=== PATIENT | female | born 1940 | race Caucasian/White ===

== ENCOUNTER 2018-06-02 16:07 | Outpatient (CLI) | payer MEDICARE, OTHER, SELFPAY ==
--- NOTE | 2018-06-02 13:05 | DI.RAD_ITS ---
SYMPTOMS/DIAGNOSIS: RIGHT HIP PAIN, M25.551 RIGHT HIP AND PELVIS: Three views were obtained. There is marked narrowing of the cartilaginous joint space of the right hip. There are prominent osteophytes of the acetabulum and femoral head. Mild subchondral sclerosis noted of the adjacent bones. 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 Moderate to severe degenerative changes of the left hip noted as well.
== END 2018-06-02 16:27 ==
PROVIDERS: PCP Family Medicine; Visit Provider Family Medicine
DX: M25.551 Pain in right hip (principal); M16.0 Bilateral primary osteoarthritis of hip
CPT/HCPCS: 73502

== ENCOUNTER 2019-01-26 06:50 | Emergency (ER) | payer MEDICARE, OTHER, SELFPAY ==
[2019-01-26 06:53] VITALS: BP 163/84; PULSE 58; RESP 22; TEMP 36.5; O2SAT 99
--- NOTE | 2019-01-26 06:59 | ED.GENADUL_ITS ---
Discharge Plan Disposition Patient Disposition: [facility] Condition: Serious Discharge Details Chief Complaint: Abd Prob Clinical Impression: Bowel obstruction, Intra-abdominal tumor Primary Care Provider: Dallin Welch ED Provider: Kyle Peñaloza Home Meds and New Rx's Prescriptions: No Action valacyclovir 1 gram tablet 1,000 mg PO BID RF: 0 clonazepam 0.5 mg tablet 0.5 mg PO hs prn Qty: 15 RF: 0 paroxetine HCl 20 mg tablet 10 mg PO DAILY Qty: 45 RF: 4 tramadol 50 mg tablet 50 mg PO Q8H PRN Qty: 15 RF: 0 acetaminophen [Tylenol Arthritis Pain] 650 MG tablet extended release 1,300 mg PO BID PRN RF: 0 cholecalciferol (vitamin D3) 1,000 UNIT tablet 1,000 unit PO DAILY RF: 0 calcium carb-mag oxide-zinc ox 1 EACH tablet 1 ea PO BID RF: 0 CPAP RF: 0 cod liver oil (bulk) 1 ML oil 1 tsp PO DAILY RF: 0 Discharge Data Discharge Date/Time-TO BE ENTERED AT DEPARTURE: 01/26/19 11:17 Medical Decision Making <Luis Erickson MD - Last Filed: 01/29/19 23:04> Patient presenting with abdominal pain and distention that she states is consistent with her previous bowel obstruction. She has had no bowel surgeries in the past. Will place IV and give Zofran and morphine. Make NPO and start fluids. Laboratory studies ordered. CT scan of the abdomen pelvis ordered. <Kyle Peñaloza MD - Last Filed: 01/27/19 08:47> 8:00 --care signed out by Dr. Erickson, please see his documentation regarding initial ED presentation and course. Briefly this is a 78-year-old female was noted to have persistent and worsening pain with associated nausea over the past [address] Erickson's concern for small bowel obstruction and CT is pending at time of signout. Labs are noted to be normal at time of signout. 10:00 --patient was reassessed remained stable. Will continue IVF. NPO. No active vomiting to warrant NG at this time. 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 Question uterine/cervical enlargement and thickened endometrial stripe. Pelvic ultrasound suggested for correlation. I called and spoke with Dr. Gamboa, on-call general surgery, she recommends transfer to [facility] for oncologic involvement. I called [facility] and requested transfer. I spoke with Dr. Chavis and discussed ED presentation and course. Dr. Chavis will accept the patient to the emergency department. Results were discussed with the patient. Plan discussed with patient and patient agrees to transfer. Of note, patient does state that she was noted to have a intra-abdominal mass years ago for which she followed up and biopsy and surgical intervention were not recommended. This apparently was followed at [facility] and follow-up with hospital in [place]. HPI <Luis Erickson MD - Last Filed: 01/29/19 23:04> General Mode of arrival: ambulatory . Date/Time Provider Initiated Documentation: 01/26/19 06:56 . Limitations to Documentation: no limitations . Information obtained by: patient and RN notes reviewed . HPI Narrative: Patient presents to ED with increasing abdominal pain and distention since yesterday. Some nausea but no vomiting. No flatus since last night. Pain is generalized and sharp in nature. Denies fevers or chills. Denies chest pain or shortness of breath. No real back pain. Previous history of SBO that cleared on its own. No previous abdominal surgeries. Related Data Home Medications Medication Instructions Recorded Confirmed acetaminophen [Tylenol Arthritis 1,300 mg PO BID PRN tab-cap 02/27/13 01/26/19 Pain] calcium carb-mag oxide-zinc ox 1 ea PO BID 02/27/13 01/26/19 cholecalciferol (vitamin D3) 1,000 unit PO DAILY 02/27/13 01/26/19 Cpap 03/19/14 12/22/18 cod liver oil (bulk) 1 tsp PO DAILY 05/07/14 01/26/19 paroxetine HCl 20 mg tablet 10 mg PO DAILY #45 tab-cap 06/02/18 01/26/19 tramadol 50 mg tablet 50 mg PO Q8H PRN #15 tab 06/02/18 01/26/19 clonazepam 0.5 mg tablet 0.5 mg PO hs prn #15 tab-cap 11/14/18 01/26/19 valacyclovir 1 gram tablet 1,000 mg PO BID tab-cap 11/14/18 01/26/19 Previous Rx's Medication Instructions Recorded paroxetine HCl 20 mg tablet 10 mg PO DAILY #45 tab-cap 06/02/18 tramadol 50 mg tablet 50 mg PO Q8H PRN #15 tab 06/02/18 clonazepam 0.5 mg tablet 0.5 mg PO hs prn #15 tab-cap 11/14/18 Allergies Allergy/AdvReac Type Severity Reaction Status Date / Time citalopram AdvReac Severe ANXIETY Unverified 01/26/19 06:56 ATTACKS venlafaxine AdvReac Unknown Unverified 01/26/19 06:56 General Stated Complaint: Abd Prob HANNAH: 3 Review of Systems <Luis Erickson MD - Last Filed: 01/29/19 23:04> Review of Systems Narrative: 02/05 Review of Systems completed and is negative except as stated above in HPI (Systems reviewed: Const, Eyes, ENT, Resp, CV, GI, , MSK, Skin, Neuro) PFSH <Luis Erickson MD - Last Filed: 01/29/19 23:04> Medical History (Updated 01/26/19 @ 07:00 by Luis Erickson MD) Depressive disorder (Acute) anxiety Gastro-esophageal reflux disease without esophagitis (Acute) Intestinal obstruction (Acute 05/05/12) 2012 small bowel obstruction (in [place] while visiting daughter) 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;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 ([facility]) Bilateral mastectomy 06/03 FLOR (obstructive sleep apnea) (Chronic) Social History (Updated 06/05/18 @ 08:30 by Brittanie Hogue) Smoking/Tobacco Use Status: Never Alcohol Intake: never Drug use: Never Substance use type: does not use Caregiver/Support person: No Household members: none Housing: house Sexually active: No Current gender identity: decline to answer Frequency: does not exercise Marleen/Uatsdin: No preference Special marleen needs: No Do you feel safe at home: Yes Do you feel safe in your relationship?: Yes Exam <Luis Erickson MD - Last Filed: 01/29/19 23:04> Narrative Exam Narrative: Vitals: Afebrile. Elevated BP otherwise vitals good. Const: WDWN elderly female in NAD. HEENT: NC/AT. Normal facial exam. Eyes: Normal conjunctiva and sclera. Neck: Supple. Trachea midline. Lungs: Normal respiratory effort. Lungs are clear. Cor: RRR without murmur/gallop. Good radial pulses. GI: Soft and distended. Bowel sounds present. Mild diffuse tenderness. No guarding or rebound. Neuro: A+O x 3. CN grossly in tact. Good strength and no focal deficit. Ext: No C/C/E. Skin: Warm and dry without rash. Course <Luis Erickson MD - Last Filed: 01/29/19 23:04> Vital Signs Vital signs: Vital Signs Temperature 97.7 F 01/26/19 06:53 Pulse 58 L 01/26/19 06:53 Respiratory Rate 22 01/26/19 06:53 Blood Pressure 163/84 H 01/26/19 06:53 Pulse Oximetry 99 01/26/19 06:53 Temperature 97.7 F 01/26/19 06:53 Temperature Source Skin 01/26/19 06:53 Pulse 58 L 01/26/19 06:53 Respiratory Rate 22 01/26/19 06:53 Respiratory Effort 01/26/19 06:57 Blood Pressure 163/84 H 01/26/19 06:53 Blood Pressure Position Sitting 01/26/19 06:53 Pulse Oximetry 99 01/26/19 06:53 Oxygen Delivery Method Room Air 01/26/19 06:53 Oxygen Flow Rate 0 01/26/19 06:53 Pain Level 10 01/26/19 06:53 Sign Out <Luis Erickson MD - Last Filed: 01/29/19 23:04> Sign Out Data: Sign Out Comment: pending labs and ct scan Last updated by Luis Erickson MD at 01/26/19 07:52
--- NOTE | 2019-01-26 07:05 | DI.CT_ITS ---
EXAM: CT ABDOMEN PELVIS W CLINICAL HISTORY: abdominal pain/distension. TECHNIQUE: COMPARISON: No exams were available for comparison FINDINGS: CT examination of the abdomen and pelvis was performed with bolus infusion 100 cc of Omnipaque 350. Images obtained through the lung bases are unremarkable. Liver spleen pancreas gallbladder and bile ducts are unremarkable. Adrenals and kidneys appear normal with no evidence of urinary tract calcifi cation or obstruction. New Abdominal aorta is of normal diameter with some atheromatous changes noted. Major aortic branches ar e unremarkable. Uterus appears enlarged with question of endometrial stripe thickening and the cervix may be enlarged as well. Pelvic ultrasound suggested for correlation. There is moderate distention of mid small bowel with fecalization of small bowel contents proximal to a mid ileal enhancing obstructive lesion. This lesion is contiguous with an irregular partially nii cified mesenteric mass and mesenteric adenopathy. 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 Moderate pelvic and lower abdominal ascites noted. No other focal bowel pathology seen. 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 Question uterine/cervical enlargement and thickened endometrial stripe. Pelvic ultrasound suggested for correlation.
[2019-01-26] MEDS: Lactated Ringers 1,000 ML 125 ML IV (07:11)
[2019-01-26] MEDS: Ondansetron 4 MG/2 ML VIAL IVP (07:12)
[2019-01-26 07:29] LABS: Abs Immature Grans 0.01 k/cumm (0.0-0.09); Absolute Basophil Count 0.01 k/cumm (0.0-0.2); Absolute Eosinophil Count 0.02 k/cumm (0.0-0.7); Absolute Lymphocyte Count 1.11 k/cumm (1.2-3.4); Absolute Monocyte Count 0.52 k/cumm (0.11-0.7); Absolute Neutrophil Count 4.66 k/cumm (1.2-6.7); Basophils % 0.2; Eosinophils % 0.3; HGB 14.6 g/dL (12.0-15.5); Immature Grans % 0.2; Lymphocytes % 17.5; Mean Corp. HGB Concentration 34.8 g/dL (32.0-36.0); Mean Corpuscular Hemoglobin 32.6 pg (27.0-33.0); Mean Corpuscular Volume 93.8 fL (80-95); Mean Platelet Volume 11.2 fL (8.0-11.0); Monocytes % 8.2; Neutrophils % 73.6; Platelet Count 226 x1000/uL (130-400); RBC 4.48 m/cumm (4.00-5.20); RBC Distribution Width 12.8 % (11.7-14.6); White Blood Cell Count 6.33 k/cumm (4.4-10.8)
--- NOTE | 2019-01-26 07:30 | NUR.NOTE ---
Nursing Note: pt resting in stretcher. no signs of distress. Facial expression and body language relaxed. visitor at bedside. Pt c/o abdominal pain and bloating. Plan of care discussed, understanding verbalized. VSS will continue to monitor.
[2019-01-26 07:48] LABS: ALT 23 U/L (14-59); AST 17 U/L (15-37); Albumin 3.7 g/dL (3.4-5.0); Alkaline Phosphatase 98 U/L (46-116); Anion Gap 10.5 mmol/L (3-11); BUN 11 mg/dL (7-18); Bilirubin, Total 0.4 mg/dL (0.2-1.0); CO2 24.5 mmol/L (21.0-32.0); CREATININE 0.53 mg/dL (0.55-1.02); Calcium 9.1 mg/dL (8.5-10.1); Chloride 101 mmol/L (98-107); Glucose 115 mg/dL (70-100); Lipase 89 U/L (73-393); Magnesium 1.9 mg/dL (1.8-2.4); Potassium 3.7 mmol/L (3.5-5.1); Sodium 136 mmol/L (136-145); Total Protein 7.2 g/dL (6.4-8.2)
[2019-01-26] MEDS: Omnipaque 350 MG/ML 100 ML BTL IV (08:32)
[2019-01-26 09:46] LABS: Bilirubin Negative (Negative); Blood Negative (Negative); Clarity Clear (Clear); Glucose Negative (Negative); Ketones Negative (Negative); Leukocyte Esterase Negative (Negative); Nitrite Negative (Negative); Specific Gravity 1.015 (1.005-1.025); Urobilinogen 0.2 EU/dL (Up TO 0.2); pH 7.5 (5-8)
[2019-01-26 10:33] VITALS: BP 125/90; PULSE 80; RESP 18; O2SAT 97
== END 2019-01-26 11:17 | disposition short-term general hospital (02) ==
PROVIDERS: Emergency Medicine; Emergency Provider Student in an Organized Health Care Education/Training Program; PCP Family Medicine
DX: K56.609 Unspecified intestinal obstruction, unspecified as to partial versus complete obstruction (principal); R19.07 Generalized intra-abdominal and pelvic swelling, mass and lump
CPT/HCPCS: 36415; 80053; 83690; 96374; 96375; 99285; 74177; 81003; 83735; 85025; 99284; J2405; J3490

== ENCOUNTER 2019-09-07 02:21 | Outpatient (CLI) | payer MEDICARE, OTHER, SELFPAY ==
[2019-09-07 08:34] LABS: Abs Immature Grans 0.01 k/cumm (0.0-0.09); Absolute Basophil Count 0.02 k/cumm (0.0-0.2); Absolute Eosinophil Count 0.23 k/cumm (0.0-0.7); Absolute Lymphocyte Count 1.73 k/cumm (1.2-3.4); Absolute Monocyte Count 0.41 k/cumm (0.11-0.7); Absolute Neutrophil Count 2.04 k/cumm (1.2-6.7); Basophils % 0.5; Eosinophils % 5.2; HCT 40.2 % (36.0-46.0); HGB 13.5 g/dL (12.0-15.5); Immature Grans % 0.2 %; Mean Corp. HGB Concentration 33.6 g/dL (32.0-36.0); Mean Corpuscular Hemoglobin 32.5 pg (27.0-33.0); Mean Corpuscular Volume 96.9 fL (80-95); Mean Platelet Volume 10.4 fL (8.0-11.0); Monocytes % 9.2; Neutrophils % 45.9; Platelet Count 295 x1000/uL (130-400); RBC 4.15 m/cumm (4.00-5.20); RBC Distribution Width 13.8 % (11.7-14.6); White Blood Cell Count 4.44 k/cumm (4.4-10.8)
[2019-09-07 08:46] LABS: ALT 32 U/L (14-59); AST 17 U/L (15-37); Albumin 3.6 g/dL (3.4-5.0); Alkaline Phosphatase 112 U/L (46-116); Anion Gap 6.9 mmol/L (3-11); BUN 23 mg/dL (7-18); Bilirubin, Total 0.3 mg/dL (0.2-1.0); CO2 26.1 mmol/L (21.0-32.0); CREATININE 0.67 mg/dL (0.55-1.02); Calcium 9.2 mg/dL (8.5-10.1); Chloride 105 mmol/L (98-107); Glucose 77 mg/dL (74-106); Sodium 138 mmol/L (136-145); Total Protein 7.2 g/dL (6.4-8.2)
[2019-09-10 12:06] LABS: Chromogranin A 44 ng/mL (<93)
== END 2019-09-07 02:41 ==
PROVIDERS: PCP Family Medicine; Visit Provider Internal Medicine Hematology & Oncology
DX: C7B.8 Other secondary neuroendocrine tumors (principal)
CPT/HCPCS: 36415; 80053; 85025; 86316

== ENCOUNTER 2019-10-05 03:46 | Outpatient (CLI) | payer MEDICARE, OTHER, SELFPAY ==
[2019-10-05 13:21] LABS: Abs Immature Grans 0.01 k/cumm (0.0-0.09); Absolute Basophil Count 0.01 k/cumm (0.0-0.2); Absolute Eosinophil Count 0.15 k/cumm (0.0-0.7); Absolute Monocyte Count 0.36 k/cumm (0.11-0.7); Absolute Neutrophil Count 3.03 k/cumm (1.2-6.7); Basophils % 0.2; Eosinophils % 2.7; HGB 13.4 g/dL (12.0-15.5); Immature Grans % 0.2 %; Lymphocytes % 34.8; Mean Corp. HGB Concentration 33.5 g/dL (32.0-36.0); Mean Corpuscular Hemoglobin 32.8 pg (27.0-33.0); Mean Corpuscular Volume 97.8 fL (80-95); Mean Platelet Volume 10.8 fL (8.0-11.0); Monocytes % 6.6; Neutrophils % 55.5; Platelet Count 314 x1000/uL (130-400); RBC 4.09 m/cumm (4.00-5.20); RBC Distribution Width 13.6 % (11.7-14.6); White Blood Cell Count 5.46 k/cumm (4.4-10.8)
[2019-10-05 14:01] LABS: ALT 28 U/L (14-59); AST 19 U/L (15-37); Albumin 3.8 g/dL (3.4-5.0); Alkaline Phosphatase 125 U/L (46-116); Anion Gap 8.1 mmol/L (3-11); BUN 23 mg/dL (7-18); Bilirubin, Total 0.4 mg/dL (0.2-1.0); CO2 27.9 mmol/L (21.0-32.0); CREATININE 0.82 mg/dL (0.55-1.02); Calcium 9.2 mg/dL (8.5-10.1); Chloride 104 mmol/L (98-107); Glucose 110 mg/dL (74-106); Sodium 140 mmol/L (136-145)
[2019-10-09 10:48] LABS: Chromogranin A 41 ng/mL (<93)
== END 2019-10-05 04:06 ==
PROVIDERS: PCP Family Medicine; Visit Provider Internal Medicine Hematology & Oncology
DX: M25.551 Pain in right hip (principal); M16.11 Unilateral primary osteoarthritis, right hip; G89.29 Other chronic pain; M79.604 Pain in right leg; C7A.012 Malignant carcinoid tumor of the ileum
CPT/HCPCS: 36415; 80053; 85025; 86316

== ENCOUNTER 2019-11-02 03:17 | Outpatient (CLI) | payer MEDICARE, OTHER, SELFPAY ==
[2019-11-02 13:32] LABS: Abs Immature Grans 0.12 k/cumm (0.0-0.09); Absolute Basophil Count 0.05 k/cumm (0.0-0.2); Absolute Eosinophil Count 0.26 k/cumm (0.0-0.7); Absolute Lymphocyte Count 1.84 k/cumm (1.2-3.4); Absolute Monocyte Count 0.48 k/cumm (0.11-0.7); Absolute Neutrophil Count 5.29 k/cumm (1.2-6.7); Basophils % 0.6; Eosinophils % 3.2; HGB 12.2 g/dL (12.0-15.5); Immature Grans % 1.5 %; Lymphocytes % 22.9; Mean Corpuscular Hemoglobin 32.4 pg (27.0-33.0); Mean Corpuscular Volume 98.4 fL (80-95); Mean Platelet Volume 9.4 fL (8.0-11.0); Neutrophils % 65.8; Platelet Count 395 x1000/uL (130-400); RBC 3.76 m/cumm (4.00-5.20); RBC Distribution Width 13.1 % (11.7-14.6); White Blood Cell Count 8.04 k/cumm (4.4-10.8)
[2019-11-02 13:40] LABS: ALT 45 U/L (14-59); AST 22 U/L (15-37); Albumin 3.5 g/dL (3.4-5.0); Alkaline Phosphatase 180 U/L (46-116); Anion Gap 7.7 mmol/L (3-11); BUN 21 mg/dL (7-18); Bilirubin, Total 0.4 mg/dL (0.2-1.0); CO2 26.3 mmol/L (21.0-32.0); CREATININE 0.77 mg/dL (0.55-1.02); Chloride 98 mmol/L (98-107); Glucose 123 mg/dL (74-106); Potassium 5.2 mmol/L (3.5-5.1); Sodium 132 mmol/L (136-145); Total Protein 7.1 g/dL (6.4-8.2)
[2019-11-06 11:27] LABS: Chromogranin A 50 ng/mL (<93)
== END 2019-11-02 03:37 ==
PROVIDERS: PCP Family Medicine; Visit Provider Internal Medicine Hematology & Oncology
DX: C7A.012 Malignant carcinoid tumor of the ileum (principal)
CPT/HCPCS: 36415; 80053; 85025; 86316

== ENCOUNTER 2019-11-30 02:15 | Outpatient (CLI) | payer MEDICARE, OTHER, SELFPAY ==
[2019-11-30 13:04] LABS: Abs Immature Grans 0.05 10^3/uL (0.0-0.06); Absolute Basophil Count 0.05 10^3/uL (0.0-0.2); Absolute Eosinophil Count 0.13 10^3/uL (0.0-0.7); Absolute Lymphocyte Count 1.93 10^3/uL (1.2-3.4); Absolute Monocyte Count 0.46 10^3/uL (0.1-0.8); Absolute Neutrophil Count 3.89 10^3/uL (1.2-6.7); Basophils % 0.8; HCT 36.4 % (36.0-46.0); Immature Grans % 0.8; Lymphocytes % 29.6; MCH 32.1 pg (27.0-33.0); MCV 97.3 fL (80-95); MPV 9.9 fL (8.0-11.0); Monocytes % 7.1; Neutrophils % 59.7; Nucleated RBC 0 %; Platelet Count 304 10^3/uL (130-400); RBC 3.74 10^6/uL (3.93-5.22); RDW 12.5 % (11.7-14.6); RDW-SD 44.9 fL; WBC 6.51 10^3/uL (4.4-10.8)
[2019-11-30 13:18] LABS: ALT 24 U/L (14-59); AST 16 U/L (15-37); Albumin 3.8 g/dL (3.4-5.0); Alkaline Phosphatase 141 U/L (46-116); Anion Gap 6.7 mmol/L (3-11); BUN 16 mg/dL (7-18); Bilirubin, Total 0.2 mg/dL (0.2-1.0); CO2 28.3 mmol/L (21.0-32.0); CREATININE 0.67 mg/dL (0.55-1.02); Calcium 9.4 mg/dL (8.5-10.1); Chloride 104 mmol/L (98-107); Glucose 103 mg/dL (74-106); Potassium 3.9 mmol/L (3.5-5.1); Sodium 139 mmol/L (136-145); Total Protein 7.4 g/dL (6.4-8.2)
[2019-12-03 13:19] LABS: Chromogranin A 31 ng/mL (<93)
== END 2019-11-30 02:35 ==
PROVIDERS: PCP Family Medicine; Visit Provider Internal Medicine Hematology & Oncology
DX: C7A.012 Malignant carcinoid tumor of the ileum (principal)
CPT/HCPCS: 36415; 80053; 85025; 86316

== ENCOUNTER 2019-12-28 03:01 | Outpatient (CLI) | payer MEDICARE, OTHER, SELFPAY ==
[2019-12-28 08:12] LABS: Abs Immature Grans 0.02 10^3/uL (0.0-0.06); Absolute Basophil Count 0.04 10^3/uL (0.0-0.2); Absolute Eosinophil Count 0.24 10^3/uL (0.0-0.7); Absolute Lymphocyte Count 1.47 10^3/uL (1.2-3.4); Absolute Monocyte Count 0.31 10^3/uL (0.1-0.8); Absolute Neutrophil Count 2.69 10^3/uL (1.2-6.7); Basophils % 0.8; HCT 39.1 % (36.0-46.0); HGB 12.6 g/dL (11.2-15.7); Immature Grans % 0.4; Lymphocytes % 30.8; MCH 32.1 pg (27.0-33.0); MCHC 32.2 % (32.0-36.0); MCV 99.5 fL (80-95); MPV 9.9 fL (8.0-11.0); Monocytes % 6.5; Neutrophils % 56.5; Nucleated RBC 0 %; Platelet Count 250 10^3/uL (130-400); RBC 3.93 10^6/uL (3.93-5.22); RDW 13.4 % (11.7-14.6); RDW-SD 49.7 fL; WBC 4.77 10^3/uL (4.4-10.8)
[2019-12-28 08:41] LABS: ALT 27 U/L (14-59); AST 17 U/L (15-37); Albumin 3.6 g/dL (3.4-5.0); Alkaline Phosphatase 118 U/L (46-116); Anion Gap 8.3 mmol/L (3-11); BUN 19 mg/dL (7-18); Bilirubin, Total 0.3 mg/dL (0.2-1.0); CO2 28.7 mmol/L (21.0-32.0); CREATININE 0.76 mg/dL (0.55-1.02); Calcium 9.3 mg/dL (8.5-10.1); Chloride 101 mmol/L (98-107); Glucose 122 mg/dL (74-106); Potassium 3.9 mmol/L (3.5-5.1); Sodium 138 mmol/L (136-145); Total Protein 6.9 g/dL (6.4-8.2)
[2020-01-01 14:00] LABS: Chromogranin A 32 ng/mL (<93)
== END 2019-12-28 03:21 ==
PROVIDERS: PCP Family Medicine; Visit Provider Internal Medicine Hematology & Oncology
DX: C7A.012 Malignant carcinoid tumor of the ileum (principal)
CPT/HCPCS: 36415; 80053; 85025; 86316

== ENCOUNTER 2020-03-14 02:41 | Outpatient (CLI) | payer MEDICARE, OTHER, SELFPAY ==
[2020-03-14 12:22] LABS: Absolute Basophil Count 0.03 10^3/uL (0.0-0.2); Absolute Eosinophil Count 0.14 10^3/uL (0.0-0.7); Absolute Lymphocyte Count 2.12 10^3/uL (1.2-3.4); Absolute Monocyte Count 0.53 10^3/uL (0.1-0.8); Absolute Neutrophil Count 2.19 10^3/uL (1.2-6.7); Basophils % 0.6; Eosinophils % 2.8; HCT 38.9 % (36.0-46.0); HGB 12.7 g/dL (11.2-15.7); Lymphocytes % 42.3; MCH 31.6 pg (27.0-33.0); MCHC 32.6 % (32.0-36.0); MCV 96.8 fL (80-95); MPV 10.8 fL (8.0-11.0); Monocytes % 10.6; Neutrophils % 43.7; Nucleated RBC 0 %; Platelet Count 259 10^3/uL (130-400); RBC 4.02 10^6/uL (3.93-5.22); RDW 13.6 % (11.7-14.6); RDW-SD 48.6 fL; WBC 5.01 10^3/uL (4.4-10.8)
[2020-03-14 12:39] LABS: ALT 29 U/L (14-59); AST 19 U/L (15-37); Albumin 3.8 g/dL (3.4-5.0); Alkaline Phosphatase 115 U/L (46-116); Anion Gap 2.6 mmol/L (3-11); BUN 18 mg/dL (7-18); Bilirubin, Total 0.4 mg/dL (0.2-1.0); CO2 31.4 mmol/L (21.0-32.0); Chloride 105 mmol/L (98-107); Glucose 66 mg/dL (74-106); Potassium 4.7 mmol/L (3.5-5.1); Sodium 139 mmol/L (136-145); Total Protein 7.1 g/dL (6.4-8.2)
[2020-03-17 15:29] LABS: Chromogranin A 34 ng/mL (<93)
== END 2020-03-14 03:01 ==
PROVIDERS: PCP Family Medicine; Visit Provider Internal Medicine Hematology & Oncology
DX: C7A.019 Malignant carcinoid tumor of the small intestine, unspecified portion (principal)
CPT/HCPCS: 36415; 80053; 85025; 86316

== ENCOUNTER 2020-04-24 02:49 | Outpatient (CLI) | payer MEDICARE, OTHER, SELFPAY ==
[2020-04-24 12:39] LABS: Abs Immature Grans 0.01 10^3/uL (0.0-0.06); Absolute Basophil Count 0.03 10^3/uL (0.0-0.2); Absolute Eosinophil Count 0.12 10^3/uL (0.0-0.7); Absolute Lymphocyte Count 1.88 10^3/uL (1.2-3.4); Absolute Monocyte Count 0.43 10^3/uL (0.1-0.8); Absolute Neutrophil Count 3.47 10^3/uL (1.2-6.7); Basophils % 0.5; HCT 40.7 % (36.0-46.0); Immature Grans % 0.2; Lymphocytes % 31.6; MCH 31.3 pg (27.0-33.0); MCHC 31.9 % (32.0-36.0); MCV 97.8 fL (80-95); MPV 10.9 fL (8.0-11.0); Monocytes % 7.2; Neutrophils % 58.5; Nucleated RBC 0 %; Platelet Count 282 10^3/uL (130-400); RBC 4.16 10^6/uL (3.93-5.22); WBC 5.94 10^3/uL (4.4-10.8)
[2020-04-24 12:51] LABS: ALT 28 U/L (14-59); AST 18 U/L (15-37); Albumin 3.7 g/dL (3.4-5.0); Alkaline Phosphatase 102 U/L (46-116); Anion Gap 5.1 mmol/L (3-11); BUN 26 mg/dL (7-18); Bilirubin, Total 0.4 mg/dL (0.2-1.0); CO2 27.9 mmol/L (21.0-32.0); CREATININE 0.71 mg/dL (0.55-1.02); Calcium 8.8 mg/dL (8.5-10.1); Chloride 106 mmol/L (98-107); Glucose 78 mg/dL (74-106); Potassium 4.2 mmol/L (3.5-5.1); Sodium 139 mmol/L (136-145); Total Protein 6.9 g/dL (6.4-8.2)
[2020-04-28 15:00] LABS: Chromogranin A 44 ng/mL (<93)
== END 2020-04-24 03:09 ==
PROVIDERS: PCP Family Medicine; Visit Provider Internal Medicine Hematology & Oncology
DX: C7A.019 Malignant carcinoid tumor of the small intestine, unspecified portion (principal)
CPT/HCPCS: 36415; 80053; 85025; 86316

== ENCOUNTER 2020-05-23 01:40 | Outpatient (CLI) | payer MEDICARE, OTHER, SELFPAY ==
[2020-05-23 11:17] LABS: Abs Immature Grans 0.01 10^3/uL (0.0-0.06); Absolute Basophil Count 0.03 10^3/uL (0.0-0.2); Absolute Lymphocyte Count 1.67 10^3/uL (1.2-3.4); Absolute Monocyte Count 0.39 10^3/uL (0.1-0.8); Basophils % 0.6; Eosinophils % 2.1; HCT 39.4 % (36.0-46.0); HGB 13.1 g/dL (11.2-15.7); Immature Grans % 0.2; Lymphocytes % 34.8; MCH 31.9 pg (27.0-33.0); MCHC 33.2 % (32.0-36.0); MCV 95.9 fL (80-95); MPV 10.3 fL (8.0-11.0); Monocytes % 8.1; Neutrophils % 54.2; Nucleated RBC 0 %; Platelet Count 279 10^3/uL (130-400); RBC 4.11 10^6/uL (3.93-5.22); RDW 13.5 % (11.7-14.6)
[2020-05-23 11:28] LABS: ALT 33 U/L (14-59); AST 19 U/L (15-37); Albumin 3.7 g/dL (3.4-5.0); Alkaline Phosphatase 104 U/L (46-116); Anion Gap 5.1 mmol/L (3-11); BUN 19 mg/dL (7-18); Bilirubin, Total 0.4 mg/dL (0.2-1.0); CO2 26.9 mmol/L (21.0-32.0); CREATININE 0.7 mg/dL (0.55-1.02); Chloride 103 mmol/L (98-107); Glucose 101 mg/dL (74-106); Potassium 4.1 mmol/L (3.5-5.1); Sodium 135 mmol/L (136-145)
[2020-05-26 13:07] LABS: Chromogranin A 29 ng/mL (<93)
== END 2020-05-23 02:00 ==
PROVIDERS: PCP Family Medicine; Visit Provider Internal Medicine Hematology & Oncology
DX: C7A.012 Malignant carcinoid tumor of the ileum (principal)
CPT/HCPCS: 36415; 80053; 85025; 86316

== ENCOUNTER 2020-06-20 01:55 | Outpatient (CLI) | payer MEDICARE, OTHER, SELFPAY ==
[2020-06-20 09:54] LABS: ALT 32 U/L (14-59); AST 19 U/L (15-37); Albumin 3.5 g/dL (3.4-5.0); Alkaline Phosphatase 110 U/L (46-116); Anion Gap 6.6 mmol/L (3-11); BUN 22 mg/dL (7-18); Bilirubin, Total 0.4 mg/dL (0.2-1.0); CO2 29.4 mmol/L (21.0-32.0); CREATININE 0.7 mg/dL (0.55-1.02); Calcium 8.9 mg/dL (8.5-10.1); Chloride 104 mmol/L (98-107); Glucose 62 mg/dL (74-106); Sodium 140 mmol/L (136-145)
[2020-06-20 10:09] LABS: Abs Immature Grans 0.01 10^3/uL (0.0-0.06); Absolute Basophil Count 0.04 10^3/uL (0.0-0.2); Absolute Eosinophil Count 0.11 10^3/uL (0.0-0.7); Absolute Lymphocyte Count 1.84 10^3/uL (1.2-3.4); Absolute Monocyte Count 0.45 10^3/uL (0.1-0.8); Absolute Neutrophil Count 1.79 10^3/uL (1.2-6.7); Basophils % 0.9; Eosinophils % 2.6; HCT 38.7 % (36.0-46.0); HGB 12.8 g/dL (11.2-15.7); Immature Grans % 0.2; Lymphocytes % 43.4; MCH 31.9 pg (27.0-33.0); MCHC 33.1 % (32.0-36.0); MCV 96.5 fL (80-95); Monocytes % 10.6; Neutrophils % 42.3; Nucleated RBC 0 %; Platelet Count 262 10^3/uL (130-400); RBC 4.01 10^6/uL (3.93-5.22); RDW 13.4 % (11.7-14.6); RDW-SD 47.9 fL; WBC 4.24 10^3/uL (4.4-10.8)
[2020-06-23 12:24] LABS: Chromogranin A 28 ng/mL (<93)
== END 2020-06-20 01:56 | disposition home or self-care (01) ==
LOC: LBO 01:55
PROVIDERS: PCP Family Medicine; Visit Provider Internal Medicine Hematology & Oncology
DX: C7A.012 Malignant carcinoid tumor of the ileum (principal)
CPT/HCPCS: 36415; 80053; 85025; 86316

== ENCOUNTER 2020-07-14 03:40 | Outpatient (CLI) | payer MEDICARE, OTHER, SELFPAY ==
[2020-07-14 09:19] LABS: Abs Immature Grans 0.01 10^3/uL (0.0-0.06); Absolute Basophil Count 0.04 10^3/uL (0.0-0.2); Absolute Eosinophil Count 0.16 10^3/uL (0.0-0.7); Absolute Lymphocyte Count 1.61 10^3/uL (1.2-3.4); Absolute Monocyte Count 0.44 10^3/uL (0.1-0.8); Absolute Neutrophil Count 2.77 10^3/uL (1.2-6.7); Basophils % 0.8; Eosinophils % 3.2; HCT 39.5 % (36.0-46.0); HGB 12.8 g/dL (11.2-15.7); Immature Grans % 0.2; MCH 31.6 pg (27.0-33.0); MCHC 32.4 % (32.0-36.0); MCV 97.5 fL (80-95); MPV 9.9 fL (8.0-11.0); Monocytes % 8.7; Neutrophils % 55.1; Nucleated RBC 0 %; Platelet Count 340 10^3/uL (130-400); RBC 4.05 10^6/uL (3.93-5.22); RDW 13.2 % (11.7-14.6); RDW-SD 47.9 fL; WBC 5.03 10^3/uL (4.4-10.8)
[2020-07-14 09:31] LABS: ALT 49 U/L (14-59); AST 20 U/L (15-37); Albumin 3.4 g/dL (3.4-5.0); Alkaline Phosphatase 159 U/L (46-116); Anion Gap 7.3 mmol/L (3-11); BUN 18 mg/dL (7-18); Bilirubin, Total 0.4 mg/dL (0.2-1.0); CO2 28.7 mmol/L (21.0-32.0); CREATININE 0.7 mg/dL (0.55-1.02); Chloride 104 mmol/L (98-107); Glucose 97 mg/dL (74-106); Potassium 4.5 mmol/L (3.5-5.1); Sodium 140 mmol/L (136-145); Total Protein 7.3 g/dL (6.4-8.2)
[2020-07-15 16:32] LABS: Chromogranin A 28 ng/mL (<93)
== END 2020-07-14 03:41 | disposition home or self-care (01) ==
LOC: LBO 03:40
PROVIDERS: PCP Family Medicine; Visit Provider Internal Medicine Hematology & Oncology
DX: C7A.019 Malignant carcinoid tumor of the small intestine, unspecified portion (principal)
CPT/HCPCS: 36415; 80053; 85025; 86316

== ENCOUNTER 2020-07-14 15:37 | Outpatient (CLI) | payer MEDICARE, OTHER, SELFPAY ==
--- NOTE | 2020-07-14 13:30 | DI.RAD_ITS ---
EXAM: XR THORACIC SPINE COMPLETE CLINICAL HISTORY: thoracic back pain M54.6. TECHNIQUE: 2D digital imaging was performed. COMPARISON: CR RIGHT RIBS TO INCLUDE CXR from 10/06/2017 FINDINGS: There is generalized osteopenia and thoracic bodies. There is a compression fracture of T6 which is unchanged from September 2017 there is a new wedge fracture of T9, not previously present. Also mild compression fracture T11, not previously present. Disc sp aces appear unremarkable. No listhesis. IMPRESSION: Compared to the lateral chest x-ray of September 2017 there are now compression fractures of T9 and T11 wh ich were not previously present. A T6 compression fractures unchanged from that date. Incidentally noted is multilevel degenerative disc disease in the visualized cervical spine. DATA REPOSITORY: RADIATION DOSE DELIVERED:
--- NOTE | 2020-07-14 13:30 | DI.RAD_ITS ---
EXAM: XR LUMBAR SPINE COMPLETE CLINICAL HISTORY: .. TECHNIQUE: 2D digital imaging was performed. COMPARISON: CR LUMBAR SPINE COMPLETE from 09/16/2010 FINDINGS: There is generalized osteopenia. There is indentation of superior endplate of L2 and L1 and T11. There are degenerative changes noted in the facet joints lower levels. There is also an element of degenerative anterolisthesis of L3 re lative to L4, unchanged. Disc space narrowing L4-5 and L5-S1 levels also again noted. Sacroiliac shubham ints unremarkable. Calcification right side of the pelvis is unchanged 2010.. No true scoliosis. A right hip prosthesis is noted. IMPRESSION: Osteopenia. Compression fractures. Unchanged L3 upon L4 listhesis. DATA REPOSITORY: RADIATION DOSE DELIVERED:
== END 2020-07-14 15:57 ==
PROVIDERS: PCP Family Medicine; Visit Provider Nurse Practitioner Family
DX: M48.54XA Collapsed vertebra, not elsewhere classified, thoracic region, initial encounter for fracture (principal); M47.812 Spondylosis without myelopathy or radiculopathy, cervical region; M85.88 Other specified disorders of bone density and structure, other site; C7A.019 Malignant carcinoid tumor of the small intestine, unspecified portion
CPT/HCPCS: 36415; 80053; 72072; 72110; 85025; 86316

== ENCOUNTER 2020-08-22 01:56 | Outpatient (CLI) | payer MEDICARE, OTHER, SELFPAY ==
[2020-08-22 12:18] LABS: Abs Immature Grans 0.01 10^3/uL (0.0-0.06); Absolute Basophil Count 0.04 10^3/uL (0.0-0.2); Absolute Eosinophil Count 0.07 10^3/uL (0.0-0.7); Absolute Lymphocyte Count 1.32 10^3/uL (1.2-3.4); Absolute Monocyte Count 0.28 10^3/uL (0.1-0.8); Absolute Neutrophil Count 3.38 10^3/uL (1.2-6.7); Basophils % 0.8; Eosinophils % 1.4; HCT 40.6 % (36.0-46.0); HGB 13.4 g/dL (11.2-15.7); Immature Grans % 0.2; Lymphocytes % 25.9; MCH 31.9 pg (27.0-33.0); MCV 96.7 fL (80-95); MPV 10.4 fL (8.0-11.0); Monocytes % 5.5; Neutrophils % 66.2; Nucleated RBC 0 %; Platelet Count 274 10^3/uL (130-400); RDW 13.8 % (11.7-14.6)
[2020-08-22 12:31] LABS: ALT 28 U/L (14-59); AST 18 U/L (15-37); Albumin 3.9 g/dL (3.4-5.0); Alkaline Phosphatase 132 U/L (46-116); Anion Gap 10.3 mmol/L (3-11); BUN 12 mg/dL (7-18); Bilirubin, Total 0.6 mg/dL (0.2-1.0); CO2 27.7 mmol/L (21.0-32.0); CREATININE 0.7 mg/dL (0.55-1.02); Calcium 9.3 mg/dL (8.5-10.1); Chloride 103 mmol/L (98-107); Glucose 126 mg/dL (74-106); Potassium 3.6 mmol/L (3.5-5.1); Sodium 141 mmol/L (136-145); Total Protein 7.3 g/dL (6.4-8.2)
[2020-08-23 14:53] LABS: Chromogranin A 27 ng/mL (<93)
== END 2020-08-22 01:57 | disposition home or self-care (01) ==
LOC: LBO 01:56
PROVIDERS: PCP Family Medicine; Visit Provider Internal Medicine Hematology & Oncology
DX: C7A.012 Malignant carcinoid tumor of the ileum (principal)
CPT/HCPCS: 36415; 80053; 85025; 86316

== ENCOUNTER 2020-09-19 02:30 | Outpatient (CLI) | payer MEDICARE, OTHER, SELFPAY ==
--- NOTE | 2020-09-19 | DI.RAD_ITS ---
Exam(s) XR CHEST 2V PA LATERAL EXAM: XR CHEST 2V PA LATERAL CLINICAL HISTORY: F/U LT PNEUMOTHORAX,J93.9,NEW BASELINE CXR TECHNIQUE: 2D digital imaging was performed. COMPARISON: CR RIGHT RIBS TO INCLUDE CXR from 10/06/2017 FINDINGS: The heart is not enlarged. The lungs are clear and well expanded. No pleural effusion seen. Mediastin al contours appear intact. IMPRESSION: Normal chest. RADIATION DOSE DELIVERED: Total DLP
[2020-09-19 09:42] LABS: Abs Immature Grans 0.03 10^3/uL (0.0-0.06); Absolute Basophil Count 0.04 10^3/uL (0.0-0.2); Absolute Eosinophil Count 0.14 10^3/uL (0.0-0.7); Absolute Lymphocyte Count 1.31 10^3/uL (1.2-3.4); Absolute Monocyte Count 0.36 10^3/uL (0.1-0.8); Absolute Neutrophil Count 2.96 10^3/uL (1.2-6.7); Basophils % 0.8; Eosinophils % 2.9; HCT 40.2 % (36.0-46.0); HGB 13.4 g/dL (11.2-15.7); Immature Grans % 0.6; Lymphocytes % 27.1; MCHC 33.3 % (32.0-36.0); MCV 95.9 fL (80-95); MPV 10.5 fL (8.0-11.0); Monocytes % 7.4; Neutrophils % 61.2; Nucleated RBC 0 %; Platelet Count 265 10^3/uL (130-400); RBC 4.19 10^6/uL (3.93-5.22); RDW 13.7 % (11.7-14.6); RDW-SD 48.5 fL; WBC 4.84 10^3/uL (4.4-10.8)
[2020-09-19 09:59] LABS: ALT 26 U/L (14-59); AST 17 U/L (15-37); Alkaline Phosphatase 136 U/L (46-116); Anion Gap 8.7 mmol/L (3-11); BUN 15 mg/dL (7-18); Bilirubin, Total 0.4 mg/dL (0.2-1.0); CO2 28.3 mmol/L (21.0-32.0); CREATININE 0.7 mg/dL (0.55-1.02); Calcium 9.5 mg/dL (8.5-10.1); Chloride 106 mmol/L (98-107); Glucose 66 mg/dL (74-106); Potassium 4.1 mmol/L (3.5-5.1); Sodium 143 mmol/L (136-145); Total Protein 7.3 g/dL (6.4-8.2)
[2020-09-23 14:34] LABS: Chromogranin A 31 ng/mL (<93)
== END 2020-09-19 02:31 | disposition home or self-care (01) ==
LOC: LBO 02:31
PROVIDERS: PCP Family Medicine; Visit Provider Internal Medicine Hematology & Oncology
DX: C7A.019 Malignant carcinoid tumor of the small intestine, unspecified portion (principal); J93.9 Pneumothorax, unspecified
CPT/HCPCS: 36415; 80053; 71046; 85025; 86316

== ENCOUNTER 2020-10-17 02:35 | Outpatient (CLI) | payer MEDICARE, OTHER, SELFPAY ==
[2020-10-17 11:48] LABS: Abs Immature Grans 0.01 10^3/uL (0.0-0.06); Absolute Basophil Count 0.03 10^3/uL (0.0-0.2); Absolute Lymphocyte Count 1.61 10^3/uL (1.2-3.4); Absolute Monocyte Count 0.38 10^3/uL (0.1-0.8); Absolute Neutrophil Count 2.56 10^3/uL (1.2-6.7); Basophils % 0.6; Eosinophils % 2.1; HCT 40.6 % (36.0-46.0); HGB 13.4 g/dL (11.2-15.7); Immature Grans % 0.2; Lymphocytes % 34.3; MCH 31.8 pg (27.0-33.0); MCV 96.4 fL (80-95); MPV 10.5 fL (8.0-11.0); Monocytes % 8.1; Neutrophils % 54.7; Nucleated RBC 0 %; Platelet Count 246 10^3/uL (130-400); RBC 4.21 10^6/uL (3.93-5.22); RDW 13.6 % (11.7-14.6); RDW-SD 48.4 fL; WBC 4.69 10^3/uL (4.4-10.8)
[2020-10-17 12:06] LABS: ALT 26 U/L (14-59); AST 16 U/L (15-37); Albumin 3.7 g/dL (3.4-5.0); Alkaline Phosphatase 124 U/L (46-116); Anion Gap 6.3 mmol/L (3-11); BUN 15 mg/dL (7-18); Bilirubin, Total 0.3 mg/dL (0.2-1.0); CO2 29.7 mmol/L (21.0-32.0); CREATININE 0.7 mg/dL (0.55-1.02); Calcium 9.3 mg/dL (8.5-10.1); Chloride 104 mmol/L (98-107); Glucose 94 mg/dL (74-106); Potassium 4.7 mmol/L (3.5-5.1); Sodium 140 mmol/L (136-145); Total Protein 7.4 g/dL (6.4-8.2)
[2020-10-18 15:41] LABS: Chromogranin A 23 ng/mL (<93)
== END 2020-10-17 02:36 | disposition home or self-care (01) ==
LOC: LBO 02:35
PROVIDERS: PCP Family Medicine; Visit Provider Internal Medicine Hematology & Oncology
DX: C7A.019 Malignant carcinoid tumor of the small intestine, unspecified portion (principal)
CPT/HCPCS: 36415; 80053; 85025; 86316

== ENCOUNTER 2020-10-17 04:18 | Outpatient (CLI) | payer MEDICARE, OTHER, SELFPAY ==
--- NOTE | 2020-10-17 11:56 | DI.RAD_ITS ---
Exam(s) XR CHEST 2V PA LATERAL EXAM: XR CHEST 2V PA LATERAL CLINICAL HISTORY: H/O LT PNEUMOTHORAX 07/2020, F/U,? STATUS,H/O CARCINOID TUMOR METASTATIC TO TECHNIQUE: 2D digital imaging was performed. COMPARISON: CR XR CHEST 2V PA LATERAL from 09/19/2020 FINDINGS: MEDIASTINUM: Normal. HEART: Normal. PULMONARY VASCULATURE: Normal. LUNGS: Clear. No visible masses. PLEURAL SPACE: No pleural effusion or pneumothorax. BONE:Stable midthoracic compression fractures. IMPRESSION: No acute pulmonary findings. DATA REPOSITORY: RADIATION DOSE DELIVERED:
== END 2020-10-17 04:38 ==
PROVIDERS: PCP Family Medicine; Visit Provider Internal Medicine Hematology & Oncology
DX: C7B.09 Secondary carcinoid tumors of other sites (principal); C7A.00 Malignant carcinoid tumor of unspecified site; Z87.09 Personal history of other diseases of the respiratory system
CPT/HCPCS: 36415; 80053; 71046; 85025; 86316

== ENCOUNTER 2020-11-17 16:08 | Outpatient (CLI) | payer MEDICARE, OTHER, SELFPAY ==
[2020-11-17 08:41] LABS: Abs Immature Grans 0.02 10^3/uL (0.0-0.06); Absolute Basophil Count 0.04 10^3/uL (0.0-0.2); Absolute Eosinophil Count 0.17 10^3/uL (0.0-0.7); Absolute Lymphocyte Count 1.89 10^3/uL (1.2-3.4); Absolute Monocyte Count 0.38 10^3/uL (0.1-0.8); Absolute Neutrophil Count 2.99 10^3/uL (1.2-6.7); Basophils % 0.7; Eosinophils % 3.1; HCT 40.4 % (36.0-46.0); HGB 13.2 g/dL (11.2-15.7); Immature Grans % 0.4; Lymphocytes % 34.4; MCH 32.2 pg (27.0-33.0); MCHC 32.7 % (32.0-36.0); MCV 98.5 fL (80-95); MPV 10.6 fL (8.0-11.0); Monocytes % 6.9; Neutrophils % 54.5; Nucleated RBC 0 %; Platelet Count 235 10^3/uL (130-400); RDW 13.3 % (11.7-14.6); RDW-SD 48.6 fL; WBC 5.49 10^3/uL (4.4-10.8)
[2020-11-17 08:57] LABS: ALT 30 U/L (14-59); AST 15 U/L (15-37); Albumin 3.7 g/dL (3.4-5.0); Alkaline Phosphatase 109 U/L (46-116); Anion Gap 8.2 mmol/L (3-11); BUN 17 mg/dL (7-18); Bilirubin, Total 0.3 mg/dL (0.2-1.0); CO2 28.8 mmol/L (21.0-32.0); CREATININE 0.6 mg/dL (0.55-1.02); Calcium 9.4 mg/dL (8.5-10.1); Chloride 107 mmol/L (98-107); Glucose 86 mg/dL (74-106); Potassium 4.3 mmol/L (3.5-5.1); Sodium 144 mmol/L (136-145); Total Protein 7.1 g/dL (6.4-8.2)
[2020-11-19 15:52] LABS: Chromogranin A 29 ng/mL (<93)
== END 2020-11-17 16:09 | disposition home or self-care (01) ==
LOC: LBO 16:09
PROVIDERS: PCP Family Medicine; Visit Provider Internal Medicine Hematology & Oncology
DX: C7A.019 Malignant carcinoid tumor of the small intestine, unspecified portion (principal); C7B.09 Secondary carcinoid tumors of other sites
CPT/HCPCS: 36415; 80053; 85025; 86316

== ENCOUNTER 2020-12-12 02:30 | Outpatient (CLI) | payer MEDICARE, OTHER, SELFPAY ==
[2020-12-12 13:00] LABS: Abs Immature Grans 0.01 10^3/uL (0.0-0.06); Absolute Basophil Count 0.04 10^3/uL (0.0-0.2); Absolute Eosinophil Count 0.13 10^3/uL (0.0-0.7); Absolute Lymphocyte Count 2.01 10^3/uL (1.2-3.4); Absolute Monocyte Count 0.41 10^3/uL (0.1-0.8); Absolute Neutrophil Count 2.35 10^3/uL (1.2-6.7); Basophils % 0.8; Eosinophils % 2.6; HCT 39.2 % (36.0-46.0); HGB 12.8 g/dL (11.2-15.7); Immature Grans % 0.2; Lymphocytes % 40.6; MCH 31.6 pg (27.0-33.0); MCHC 32.7 % (32.0-36.0); MCV 96.8 fL (80-95); MPV 10.3 fL (8.0-11.0); Monocytes % 8.3; Neutrophils % 47.5; Nucleated RBC 0 %; Platelet Count 244 10^3/uL (130-400); RBC 4.05 10^6/uL (3.93-5.22); RDW 13.1 % (11.7-14.6); RDW-SD 46.9 fL; WBC 4.95 10^3/uL (4.4-10.8)
[2020-12-12 13:13] LABS: ALT 27 U/L (14-59); AST 17 U/L (15-37); Albumin 3.6 g/dL (3.4-5.0); Alkaline Phosphatase 102 U/L (46-116); BUN 17 mg/dL (7-18); Bilirubin, Total 0.2 mg/dL (0.2-1.0); CREATININE 0.7 mg/dL (0.55-1.02)
[2020-12-12 13:28] LABS: Anion Gap 6.3 mmol/L (3-11); CO2 29.7 mmol/L (21.0-32.0); Chloride 108 mmol/L (98-107); Glucose 100 mg/dL (74-106); Potassium 3.6 mmol/L (3.5-5.1); Sodium 144 mmol/L (136-145)
[2020-12-15 15:32] LABS: Chromogranin A 23 ng/mL (<93)
== END 2020-12-12 02:31 | disposition home or self-care (01) ==
LOC: LBO 02:30
PROVIDERS: PCP Family Medicine; Visit Provider Internal Medicine Hematology & Oncology
DX: C7A.019 Malignant carcinoid tumor of the small intestine, unspecified portion (principal)
CPT/HCPCS: 36415; 80053; 85025; 86316

== ENCOUNTER 2020-12-26 04:14 | Outpatient (CLI) | payer MEDICARE, OTHER, SELFPAY ==
--- NOTE | 2020-12-26 09:29 | DI.RAD_ITS ---
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 Barium was ingested and showed grossly normal h ypo pharyngeal motility. Esophagus shows mild tertiary contractions. There is minimal smooth narrow ing of the distal esophagus. A 12 millimeter barium tablet passes easily to the stomach. IMPRESSION: Mild tertiary contractions of esophagus noted. No evidence of obstruction. RADIATION DOSE DELIVERED: Total DLP
[2020-12-26] MEDS: Barium Sulfate 60% W/V 355 ML BTL PO (09:34)
== END 2020-12-26 04:34 ==
PROVIDERS: PCP Family Medicine; Visit Provider Internal Medicine Hematology & Oncology
DX: C7A.012 Malignant carcinoid tumor of the ileum (principal); R13.10 Dysphagia, unspecified
CPT/HCPCS: 74220

== ENCOUNTER 2021-01-09 16:55 | Outpatient (CLI) | payer MEDICARE, OTHER, SELFPAY ==
[2021-01-09 13:10] LABS: Abs Immature Grans 0.02 10^3/uL (0.0-0.06); Absolute Basophil Count 0.04 10^3/uL (0.0-0.2); Absolute Eosinophil Count 0.21 10^3/uL (0.0-0.7); Absolute Monocyte Count 0.34 10^3/uL (0.1-0.8); Absolute Neutrophil Count 3.57 10^3/uL (1.2-6.7); Basophils % 0.7; Eosinophils % 3.8; Immature Grans % 0.4; Lymphocytes % 25.1; MCH 31.9 pg (27.0-33.0); MCHC 33.3 % (32.0-36.0); MCV 95.8 fL (80-95); MPV 10.2 fL (8.0-11.0); Monocytes % 6.1; Neutrophils % 63.9; Nucleated RBC 0 %; Platelet Count 278 10^3/uL (130-400); RBC 4.07 10^6/uL (3.93-5.22); RDW 13.2 % (11.7-14.6); RDW-SD 46.9 fL; WBC 5.58 10^3/uL (4.4-10.8)
[2021-01-09 13:26] LABS: ALT 34 U/L (14-59); AST 19 U/L (15-37); Albumin 3.6 g/dL (3.4-5.0); Alkaline Phosphatase 127 U/L (46-116); Anion Gap 5.8 mmol/L (3-11); BUN 21 mg/dL (7-18); Bilirubin, Total 0.3 mg/dL (0.2-1.0); CO2 26.2 mmol/L (21.0-32.0); CREATININE 0.6 mg/dL (0.55-1.02); Chloride 106 mmol/L (98-107); Glucose 97 mg/dL (74-106); Potassium 4.6 mmol/L (3.5-5.1); Sodium 138 mmol/L (136-145); Total Protein 7.2 g/dL (6.4-8.2)
[2021-01-12 13:17] LABS: Chromogranin A 27 ng/mL (<93)
== END 2021-01-09 16:56 | disposition home or self-care (01) ==
LOC: LBO 17:02
PROVIDERS: PCP Family Medicine; Visit Provider Internal Medicine Hematology & Oncology
DX: C7A.012 Malignant carcinoid tumor of the ileum (principal); C7B.09 Secondary carcinoid tumors of other sites
CPT/HCPCS: 36415; 80053; 85025; 86316

== ENCOUNTER 2021-02-13 02:02 | Outpatient (CLI) | payer MEDICARE, OTHER, SELFPAY ==
[2021-02-13 14:22] LABS: Abs Immature Grans 0.02 10^3/uL (0.0-0.06); Absolute Basophil Count 0.04 10^3/uL (0.0-0.2); Absolute Eosinophil Count 0.13 10^3/uL (0.0-0.7); Absolute Lymphocyte Count 1.58 10^3/uL (1.2-3.4); Absolute Monocyte Count 0.41 10^3/uL (0.1-0.8); Absolute Neutrophil Count 3.31 10^3/uL (1.2-6.7); Basophils % 0.7; Eosinophils % 2.4; HCT 39.2 % (36.0-46.0); HGB 12.8 g/dL (11.2-15.7); Immature Grans % 0.4; Lymphocytes % 28.8; MCH 32.2 pg (27.0-33.0); MCHC 32.7 % (32.0-36.0); MCV 98.5 fL (80-95); MPV 10.6 fL (8.0-11.0); Monocytes % 7.5; Neutrophils % 60.2; Nucleated RBC 0 %; Platelet Count 271 10^3/uL (130-400); RBC 3.98 10^6/uL (3.93-5.22); RDW 13.8 % (11.7-14.6); RDW-SD 51.1 fL; WBC 5.49 10^3/uL (4.4-10.8)
[2021-02-13 14:32] LABS: ALT 27 U/L (14-59); AST 18 U/L (15-37); Albumin 3.5 g/dL (3.4-5.0); Alkaline Phosphatase 124 U/L (46-116); Anion Gap 9.2 mmol/L (3-11); BUN 17 mg/dL (7-18); Bilirubin, Total 0.4 mg/dL (0.2-1.0); CO2 28.8 mmol/L (21.0-32.0); CREATININE 0.7 mg/dL (0.55-1.02); Calcium 8.8 mg/dL (8.5-10.1); Chloride 105 mmol/L (98-107); Glucose 181 mg/dL (74-106); Potassium 3.5 mmol/L (3.5-5.1); Sodium 143 mmol/L (136-145); Total Protein 7.1 g/dL (6.4-8.2)
[2021-02-13 17:24] LABS: Vitamin B12 275 pg/mL (193-986)
[2021-02-14 14:42] LABS: Chromogranin A 34 ng/mL (<93)
== END 2021-02-13 02:03 | disposition home or self-care (01) ==
LOC: LBO 02:02
PROVIDERS: PCP Family Medicine; Visit Provider Internal Medicine Hematology & Oncology
DX: C7A.012 Malignant carcinoid tumor of the ileum (principal); E53.8 Deficiency of other specified B group vitamins
CPT/HCPCS: 36415; 80053; 82607; 85025; 86316

== ENCOUNTER 2021-03-20 02:42 | Outpatient (CLI) | payer MEDICARE, OTHER, SELFPAY ==
[2021-03-20 13:13] LABS: Abs Immature Grans 0.01 10^3/uL (0.0-0.06); Absolute Basophil Count 0.04 10^3/uL (0.0-0.2); Absolute Eosinophil Count 0.12 10^3/uL (0.0-0.7); Absolute Lymphocyte Count 1.66 10^3/uL (1.2-3.4); Absolute Monocyte Count 0.35 10^3/uL (0.1-0.8); Absolute Neutrophil Count 2.47 10^3/uL (1.2-6.7); Basophils % 0.9; Eosinophils % 2.6; HCT 40.7 % (36.0-46.0); HGB 13.5 g/dL (11.2-15.7); Immature Grans % 0.2; Lymphocytes % 35.7; MCH 32.1 pg (27.0-33.0); MCHC 33.2 % (32.0-36.0); MCV 96.7 fL (80-95); MPV 10.1 fL (8.0-11.0); Monocytes % 7.5; Neutrophils % 53.1; Nucleated RBC 0 %; Platelet Count 285 10^3/uL (130-400); RBC 4.21 10^6/uL (3.93-5.22); RDW 12.8 % (11.7-14.6); RDW-SD 46.1 fL; WBC 4.65 10^3/uL (4.4-10.8)
[2021-03-20 14:17] LABS: ALT 34 U/L (14-59); AST 19 U/L (15-37); Albumin 3.9 g/dL (3.4-5.0); Alkaline Phosphatase 123 U/L (46-116); Anion Gap 8.2 mmol/L (3-11); BUN 16 mg/dL (7-18); Bilirubin, Total 0.4 mg/dL (0.2-1.0); CO2 29.8 mmol/L (21.0-32.0); CREATININE 0.5 mg/dL (0.55-1.02); Calcium 9.3 mg/dL (8.5-10.1); Chloride 103 mmol/L (98-107); Glucose 103 mg/dL (74-106); Potassium 4.3 mmol/L (3.5-5.1); Sodium 141 mmol/L (136-145); Total Protein 7.1 g/dL (6.4-8.2)
[2021-03-20 14:19] LABS: Calculated LDL 133 mg/dL (<100); Cholesterol 223 mg/dL (<200); HDL Cholesterol 68 mg/dL (40-60); Triglyceride 113 mg/dL (<150)
[2021-03-23 10:35] LABS: Chromogranin A 27 ng/mL (<93)
== END 2021-03-20 02:43 | disposition home or self-care (01) ==
LOC: LBO 02:42
PROVIDERS: PCP Family Medicine; Visit Provider Internal Medicine Hematology & Oncology
DX: C7B.09 Secondary carcinoid tumors of other sites
CPT/HCPCS: 36415; 80053; 80061; 85025; 86316

== ENCOUNTER 2021-05-15 01:52 | Outpatient (CLI) | payer MEDICARE, OTHER, SELFPAY ==
[2021-05-15 12:29] LABS: Abs Immature Grans 0.02 10^3/uL (0.0-0.06); Absolute Basophil Count 0.04 10^3/uL (0.0-0.2); Absolute Lymphocyte Count 2.02 10^3/uL (1.2-3.4); Absolute Neutrophil Count 2.89 10^3/uL (1.2-6.7); Basophils % 0.7; Eosinophils % 1.8; HGB 13.1 g/dL (11.2-15.7); Immature Grans % 0.4; Lymphocytes % 36.9; MCH 32.3 pg (27.0-33.0); MCHC 32.8 % (32.0-36.0); MCV 98.8 fL (80-95); MPV 9.8 fL (8.0-11.0); Monocytes % 7.3; Neutrophils % 52.9; Nucleated RBC 0 %; Platelet Count 257 10^3/uL (130-400); RBC 4.05 10^6/uL (3.93-5.22); RDW 13.7 % (11.7-14.6); RDW-SD 50.4 fL; WBC 5.47 10^3/uL (4.4-10.8)
[2021-05-15 12:57] LABS: ALT 31 U/L (14-59); AST 20 U/L (15-37); Albumin 3.9 g/dL (3.4-5.0); Alkaline Phosphatase 94 U/L (46-116); Anion Gap 8.2 mmol/L (3-11); BUN 18 mg/dL (7-18); Bilirubin, Total 0.3 mg/dL (0.2-1.0); CO2 26.8 mmol/L (21.0-32.0); CREATININE 0.7 mg/dL (0.55-1.02); Chloride 105 mmol/L (98-107); Glucose 134 mg/dL (74-106); Sodium 140 mmol/L (136-145); Total Protein 7.3 g/dL (6.4-8.2)
[2021-05-18 10:45] LABS: Chromogranin A 38 ng/mL (<93)
== END 2021-05-15 01:53 | disposition home or self-care (01) ==
LOC: LBO 01:52
PROVIDERS: PCP Family Medicine; Visit Provider Internal Medicine Hematology & Oncology
DX: C7A.019 Malignant carcinoid tumor of the small intestine, unspecified portion (principal)
CPT/HCPCS: 36415; 80053; 85025; 86316

== ENCOUNTER 2021-07-10 01:27 | Outpatient (CLI) | payer MEDICARE, OTHER, SELFPAY ==
[2021-07-10 13:05] LABS: Abs Immature Grans 0.01 10^3/uL (0.0-0.06); Absolute Basophil Count 0.03 10^3/uL (0.0-0.2); Absolute Lymphocyte Count 1.92 10^3/uL (1.2-3.4); Absolute Monocyte Count 0.45 10^3/uL (0.1-0.8); Absolute Neutrophil Count 3.06 10^3/uL (1.2-6.7); Basophils % 0.5; Eosinophils % 1.8; HGB 12.5 g/dL (11.2-15.7); Immature Grans % 0.2; Lymphocytes % 34.5; MCH 32.1 pg (27.0-33.0); MCHC 32.9 % (32.0-36.0); MCV 97.7 fL (80-95); MPV 10.3 fL (8.0-11.0); Monocytes % 8.1; Neutrophils % 54.9; Nucleated RBC 0 %; Platelet Count 237 10^3/uL (130-400); RBC 3.89 10^6/uL (3.93-5.22); RDW 13.2 % (11.7-14.6); RDW-SD 47.3 fL; WBC 5.57 10^3/uL (4.4-10.8)
[2021-07-10 13:49] LABS: ALT 31 U/L (14-59); AST 19 U/L (15-37); Albumin 3.9 g/dL (3.4-5.0); Alkaline Phosphatase 105 U/L (46-116); BUN 21 mg/dL (7-18); Bilirubin, Total 0.4 mg/dL (0.2-1.0); CREATININE 0.6 mg/dL (0.55-1.02); Calcium 8.9 mg/dL (8.5-10.1); Chloride 105 mmol/L (98-107); Glucose 72 mg/dL (74-106); Potassium 4.1 mmol/L (3.5-5.1); Sodium 141 mmol/L (136-145); Total Protein 6.7 g/dL (6.4-8.2)
[2021-07-13 10:02] LABS: Chromogranin A 43 ng/mL (<93)
== END 2021-07-10 01:28 | disposition home or self-care (01) ==
LOC: LBO 01:28
PROVIDERS: PCP Family Medicine; Visit Provider Internal Medicine Hematology & Oncology
DX: C7A.019 Malignant carcinoid tumor of the small intestine, unspecified portion (principal)
CPT/HCPCS: 36415; 80053; 85025; 86316

== ENCOUNTER 2021-09-02 02:01 | Outpatient (CLI) | payer MEDICARE, OTHER, SELFPAY ==
--- OUTSIDE RECORDS SUMMARY | 2021-09-02 02:02 | XMS_ITS | Encounter Summary ---
:1940 Author Care Team Providers Name Role Phone Dallin Welch MD Primary Care Provider [phone] [facility] OTHER [phone] [facility] Medical Records OTHER [phone] Reason for Visit SLEEP CLINIC Follow-Up CPAP/BIPAP Therap y Assessment and Plan Assessment Note I provided greater than 30 minutes in t he care of this patient, more than half the time was spent in [id number] counseling. 1. Obstructive sleep apnea syndr ome 2004 [place] [facility] [place] Moderate Obstructive Sleep Apnea with AHI 16/hr. Started on CPAP 12cm but compliance was problematic due to mask leak and discomfort 09/29/2007 Split Night PSG (bmi 27, ess 12 ) Moderate Obstructive Sleep Apnea AHI 27.7/hr that was Very Severe in REM (REM AHI 72/hr). Augusto SpO2 83%. Titration portion tested cpap 12 to 15cm, up to bipap 18/14cm. Optimal pressure at cpap 15cm. PLM index 18/hr PLM Arousal index 0.6/hr 04/30/13 obtained new machine, f2f w Dr Pyle, apap 10 to 15 ordered. on fixed cpap 12, note tx AHI 3.8/hr. ESS 11/1507/12/17 transitioned to [employer] to apap 10 to 18cm due to cpap data showing prolonged periods at max pressure. 08/31/17 - tolerates pressure change above , no aerophagia. continue. improved cpap data daily details 12/27/18: pt returns, reports benefiting f rom apap 10 to 18cm, using nigntly, but wonders if she can find better mask option. due for new machine. will obtain new machine and also request mask below. 11/24/20: pt reports she was using and pam efiting from apap 10 to 18cm until she learned of RECALL last week. she does not want to keep using until the RECALL is replaced or repaired, due to seeing black particles in outflow track of her irene e. she called her insurance which said they will cover replacement. will send Rx to DME. but in case it isnt covered, pt was adivsed to either get OTC or to wait until it can be replaced. discussed risk s of untreated nikhil and precautions she should take in that case. 08/24/21: got dreamstation 2 replacement o f recall, feels its working well, AHI reduction is good and compliance is good, there is SD card problem so last month not able to download, June data looks good current mask: simplus small cushion with quattro air headgear Masks tried: AirFit F20 headgear, fitted her medium cushion may work, requested she get this from [facility]. Aerophagy 07/12/17 in past on prior cpap pressures. no issues with that now. will increase pressures but monitor for aerophagia. 08/31/17 , 12/27/18 no issues on auto cpap 1 0 to 18cm 3. Hypersomnia 08/31/17 - intermittent episodes of hypersomnia, appear to be related to eating lunch, advised importance of low glycemic load, adding healthy fats, protein and vegetables to decrease blood suga r fluctuations. advise safety measures w ith driving (avoid driving if drowsy) 12/27/18: ESS better today at 8, B12 shots may also be helping, requested she bring her lab results to next visit. 11/24/20: ESS at 2 today, despite couple d ays ago stopping cpap. she attributes to having surgery for her neuroendocrine tumor apr 2019 08/24/21 ESS 7 today, on cpap , turns out her intermittent hypersomnia episodes may have been due to the neuroendocrine tumor as it seems mostly resolved after operation and octreotide infusions qmonth 4. Decreased vitamin D 07/12/17 - notes level is being monitored and she's on supplement 1999- 4000 i.u., getting expensive to pay for OTC, will try prescription to see if insurance covers 08/31/17 - continue vit D main tenance dose 2000 i.u. in summer, 4000 i .u. in winter daily 12/27/18: she says it was checked but not accessible here, and some labs were thru her naturopathic doctor, so asked her to bring results to next visit. Discussion Note Remember to always take precautio ns on drowsy driving. If you experience sleepiness while driving, find a safe area to pullman car repairer and take a break. Research suggests taking a power nap (15 to 20 roberto judi) and/or coffee (or caffeine containi ng food such as dark chocolate) may be effective aides. As always, you should use your judgement on whether to drive at all, if you are sleep deprived or feeling sleepy. Thank you for the kind opportunity to p articipate in your medical care. You expressed good understanding of your diagnosis and treatment, and agreed to proceed with the plan we discussed together. If y ou have any questions or concerns prior to your next appointment, please call Sleep Clinic. Patient educational handouts: No information available. Plan of Care Patient Instructions keep up the good work with using yo ur cpap 2 year follow up Reminders Provider Appointments Return to on or around Cody Jane MD, Office 08/25/2023 Board Certified Sleep Physician Lab None ? ? recorded. Referral None ? ? recorded. Procedures None ? ? recorded. Surgeries None ? ? recorded. Imaging None ? ? recorded. Medications Name Start Date ? ? clonazepam 0.5 mg tablet ? Take as needed by oral route for 15 days. collagen (bovine) ? 1 scoop daily octreotide,microspheres ER 20 mg intramuscular susp, e xtended release ? Inject 20 mg every month by intramuscular route as di rected. omega-3 fatty acids ? paroxetine 20 mg tablet ? Take 0.5 tablets every day by oral route for 90 days. Premarin 0.625 mg/gram vaginal cream ? Insert as needed by vaginal route for 90 days. Medications Administered None recorded. Vitals Height Weight BMI Blood Pressure 5 ft 2 in 156 lbs 28.5 kg/m2 110/78 mm[Hg] Results Lab Results None recorded. Allergies Code Code System Name Reaction Severity Onset 4529 RxNorm Citalopram ? ? ? Problems Name Status Onset Date Source ? Polyp of Colon Active ? ? Vitamin D Deficiency Active ? History Persistent Insomnia Active ? History Depressive Disorder Active ? History Insomnia Active ? ? Hypersomnia Active ? ? Obstructive Sleep Apnea Syndrome Active ? History Periodic Limb Movement Disorder Active ? History Deviated Nasal Septum Active ? ? Intestinal Obstruction Active ? ? Arthropathy Active ? History Arthritis Active ? ? Low Back Pain Active ? ? Polymyalgia Active ? ? History of Malignant Neoplasm of Breast Active ? ? Digestive System Finding Active ? History Hypertrophy of Nasal Turbinates Active ? ? Knee Pain Active ? ? Procedures None recorded. Vaccine List None recorded. Social History Tobacco Smoking Status Never Smoker What is your level of alcohol consumption? None Live alone or with others? alone Are you currently employed? Y What is your occupation? retired, respit once a month Functional Status Unknown. Past Encounters 08/24/2021 Obstructive Sleep Apnea Syndrome; Aeroph agy; Hypersomnia; Decreased Vitamin D Shahzad Jane MD, Board Certified Sleep Ph ysician: [address] [place] [address] [address], [place] [address], Ph. 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
</div><p><strong>PREVIOUS SLEEP EVALUATION: </strong></p><p>[place] [facility] [place] showed Moderate Obstructive Sleep Apnea with AHI 16/hr. Started on CPAP 12cm but compliance was problematic due to mask leak and discomfort. </p><div>
</div><div>
</div><p>Split Night Polysomnogram on 09/29/2007 (BMI 27, ESS 04/17) showed Moderate Obstructive Sleep Apnea AHI 27.7/hr that was Very Severe in REM (REM AHI 72/hr). Augusto SpO2 83%.Titration portion tested cpap 12 to 15cm, up to bipap 18/14cm. Optimal pressure at cpap 15cm. PLM index 18/hr PLM Arousal index 0.6/hr No significant arrhythmias, Leonardo-Oliveira Respirations, parasomnias, or abnormalities on limited EEG montage. </p><div>
</div><div>< br></div><p>Visit on 04/30/[address] Sidney Romero, for f2f visit in order to obtain new machine. Notes she had turbinate reduction with Dr Estephanie HINOJOSA. This helped her use cpap but she does have some residual dryness. Using full face mask. New machine ordered for auto 10 to 15cm. Note ESS 11/15 with 93.3% > = 4 hrs use. tx AHI 3.8/hr. avg 7h 2m on fixed cpap 12cm. </p>&lt ;div>
</div><div>
</div><p>Visit on when pt transitioned to my care, she was on auto cpap 10 to 15cm via quattro air headgear, with simplus small full face mask. TX AHI 5.1/ hr with 100% usage at 8h19m daily. 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 Also notes she was sleepy after meals. Due to observing pressure ceilings on daily details on cpap data, we increased to auto cpap 10 to 18cm</p><div>
</div><div>
&lt ;/div><p><strong>TODAY: dreamstation 2 (replacement of recall received fall 2020) on apap 10 to 18cm via quattro air headgear and simplus small cushion</strong></p><div>
</div><div>no main issues w/ machine</div><div>been using machine up until yesterday but data only registered til june, unclear if it was SD card malfunction</div> Review of Systems ? Notes: <p>A 14-point <strong>REVIEW OF SYSTEM</strong> was obtained and reviewed, includes CONSTITUTIONAL, EYE S, ALLERGY, NEUROLOGIC, ENDOCRINE, GI, CARDIOVASCULAR, SKIN, MSK, E NT, , RESPIRATORY, HEMATOLOGIC, PSYCH systems. Pertinent symptoms are discu ssed in history, otherwise negative.</p><div>fatigue </div><div>dry mouth</div><div>nasal congestion</div><div>joint p ain in legs</div><div>muscle cramps in legs</div><div>headaches< /div> Physical Exam ? Notes: <p>GENERAL: </p><div>{{chron ically ill appearing well appearing#}}, appearing {{older than younger than st ated#}} age, no acute distress, {{normal* tall lean}} build< br>HEENT: atraumatic skull, anicteric
RESPIRATORY: qu iet respiration, able to speak in full sentences without dyspnea, no accessor y muscle use,
SKIN: no facial skin rash, no facial skin lesions
PS YCHIATRIC: well groomed, fluent speech, good insight, linear thought proc ess, good eye contact, {{flat balanced#}} affect
NEUROLOGIC: alert, oriented, symmetric facial expression

<strong>Cl inical Data Reviewed:</strong>

1. {{Modified Pediatric Sagamore Sleepiness Scale Sagamore Sleepiness Scale*}}: 7 out of {{21 due to not drivi ng 24#}}vs 8 last visit

2. {{Sleep study results not available, reque sted Unable to obtain sleep study reports No sleep study reports Sleep study re sults as above.#}}

3. Machine Download Data:
{{Resmed AirSense 1 0 Auto CPAP Resmed AirSense 10 Auto BIPAP Respironics Dreamstati on Auto CPAP Respironics Dreamstation Auto BIPAP Respironics Dreamstati on 2 Auto CPAP#}}
PAP Settings: {{Auto BIPAP CPAP BIPAP Auto CPAP#} } 10 to 18 CmH2O
Date Range: {{ 05/28/21#}} to {{ 06/26/21#}}
<strong>Days with Usage >=4 hours: </strong>{{Over 7 0 100 66.7#}}<strong> %</strong>
<strong>Avg Usage per Day Used: </strong >{{1 2 3 4 5* 6 7 8 9 10}}<strong> Hours </strong>{{0 8#}}<strong> Minutes</strong>
Mean/Median Pressure: {{number___ 10.6#}} cmh2O
90th-tile/95th-tile Pressure: {{number___ 12.0#}} cmH2O
{{Median-90th%tile Leak: Leak: Avg Time in Large Leak Daily- #}} {{Not significant Significan t leak 5min, not sig#}}
<strong>Average AHI: </strong>{{enter 6.3#}}<stro ng> per hour</strong>
{{Normal flow limitation index. * Abnormal flow limit ation index.}}
{{Normal vibratory snore index. Abnormal vibratory sn ore index. mildly high VS at 9/hr#}}
{{Daily details do not show signific ant periods at maximum pressure* Daily details shows significant periods at maximum pressure}}

4. {{Lab results as outlined. Labs pending. No p ertinent labs available. #}}</div><div>
</div>
--- OUTSIDE RECORDS SUMMARY | 2021-09-02 02:02 | XMS_ITS ---
:1940 Author Care Team Providers Name Role Phone IMELDA GONZALES MD Primary Care Provider [phone] [facility] OTHER [phone] [facility] RECORDS OTHER [phone] Allergies Code Code System Name Reaction Severity Status Onset 6069 RxNorm Citalopram ? ? Active ? Medications Name Status Start Date Stop Date ? ? clonazepam 0.5 mg tablet Active ? Not martita ilable Take as needed by oral route for 15 days. collagen (bovine) Active ? Not available 1 scoop daily octreotide,microspheres ER 20 mg intramuscular susp, extended re lease Active ? Not available Inject 20 mg every month by intramuscular route as directed. omega-3 fatty acids Active ? Not availabl e paroxetine 20 mg tablet Active ? Not avai lable Take 0.5 tablets every day by oral route for 90 days. peg-electrolyte solution 420 gram oral Completed ? 12/27/2018 solution Premarin 0.625 mg/gram vaginal cream Active ? Not available Insert as needed by vaginal route for 90 days. tramadol 50 mg tablet Completed ? 11/24/2020 Take as needed by oral route for 5 days. Problems Name Status Onset Date Source ? [...] Pain Active ? ? Procedures None recorded. Results Lab Results None recorded. Past Encounters 08/24/2021 Obstructive Sleep Apnea Syndrome; Aeroph agy; Hypersomnia; Decreased Vitamin D Shahzad Jane MD, Board Certified Sleep Ph ysician: [address] [place] [address] [address], [place] [address], Ph. 11/24/2020 Obstructive Sleep Apnea Syndrome; Aeroph agy; Hypersomnia; Decreased Vitamin D Shahzad Jane MD, Board Certified Sleep Ph ysician: [address] [place] [address] [address], [place] [address], Ph. Social History Tobacco Smoking Status Never Smoker Vaccine List None recorded. Plan of Care Patient Instructions keep up the good work with using yo ur cpap 2 year follow up 6 month follow up Reminders Provider Appointments None recorded. ? ? Lab None recorded. ? ? Referral None recorded. ? ? Procedures None recorded. ? ? Surgeries None recorded. ? ? Imaging None recorded. ? ? Vitals 08/24/2021 01:30PM Office 30 Height Weight BMI Blood Pressure 157.48 cm 70.76 kg 28.5 kg/m2 110/78 mm[Hg] 11/24/2020 10:30AM Office 30 Height Weight BMI Blood Pressure 157.48 cm 70.31 kg 28.3 kg/m2 128/72 mm[Hg] 12/27/2018 10:30AM Office 15 Height Weight BMI Blood Pressure 162.56 cm 70.9 kg 26.8 kg/m2 120/66 mm[Hg] 07/12/2017 Height Weight Blood Pressure 160.02 cm 73.48 kg 130/70 mm[Hg] 04/30/2013 Height Weight Blood Pressure 160.02 cm 72.23 kg 98/60 mm[Hg]
[2021-09-02 13:56] LABS: Abs Immature Grans 0.01 10^3/uL (0.0-0.06); Absolute Basophil Count 0.04 10^3/uL (0.0-0.2); Absolute Eosinophil Count 0.11 10^3/uL (0.0-0.7); Absolute Lymphocyte Count 1.86 10^3/uL (1.2-3.4); Absolute Neutrophil Count 2.71 10^3/uL (1.2-6.7); Basophils % 0.8; Eosinophils % 2.2; HCT 38.1 % (36.0-46.0); HGB 12.4 g/dL (11.2-15.7); Immature Grans % 0.2; MCHC 32.5 % (32.0-36.0); MCV 98 fL (80-95); MPV 10.5 fL (8.0-11.0); Neutrophils % 53.8; Platelet Count 294 10^3/uL (130-400); RBC 3.88 10^6/uL (3.93-5.22); RDW 13.5 % (11.7-14.6); RDW-SD 48.7 fL; WBC 5.03 10^3/uL (4.4-10.8)
[2021-09-02 15:49] LABS: ALT 34 U/L (14-59); AST 20 U/L (15-37); Albumin 3.7 g/dL (3.4-5.0); Alkaline Phosphatase 117 U/L (46-116); Anion Gap 9.8 mmol/L (3-11); BUN 17 mg/dL (7-18); Bilirubin, Total 0.3 mg/dL (0.2-1.0); CO2 26.2 mmol/L (21.0-32.0); CREATININE 0.6 mg/dL (0.55-1.02); Calcium 8.8 mg/dL (8.5-10.1); Chloride 107 mmol/L (98-107); Glucose 161 mg/dL (74-106); Sodium 143 mmol/L (136-145); Total Protein 6.9 g/dL (6.4-8.2)
[2021-09-03 18:41] LABS: Chromogranin A 29 ng/mL (<93)
== END 2021-09-02 02:02 | disposition home or self-care (01) ==
LOC: LBO 02:01
PROVIDERS: PCP Family Medicine; Visit Provider Internal Medicine Hematology & Oncology
DX: C7A.019 Malignant carcinoid tumor of the small intestine, unspecified portion (principal)
CPT/HCPCS: 36415; 80053; 85025; 86316

== ENCOUNTER 2021-10-02 01:38 | Outpatient (CLI) | payer MEDICARE, OTHER, SELFPAY ==
[2021-10-02 11:36] LABS: Abs Immature Grans 0.02 10^3/uL (0.0-0.06); Absolute Basophil Count 0.04 10^3/uL (0.0-0.2); Absolute Eosinophil Count 0.17 10^3/uL (0.0-0.7); Absolute Lymphocyte Count 1.55 10^3/uL (1.2-3.4); Absolute Monocyte Count 0.43 10^3/uL (0.1-0.8); Absolute Neutrophil Count 3.58 10^3/uL (1.2-6.7); Basophils % 0.7; Eosinophils % 2.9; HCT 38.5 % (36.0-46.0); HGB 12.7 g/dL (11.2-15.7); Immature Grans % 0.3; Lymphocytes % 26.8; MCH 32.1 pg (27.0-33.0); MCV 97 fL (80-95); MPV 10.4 fL (8.0-11.0); Monocytes % 7.4; Neutrophils % 61.9; Platelet Count 255 10^3/uL (130-400); RBC 3.96 10^6/uL (3.93-5.22); RDW 13.2 % (11.7-14.6); WBC 5.79 10^3/uL (4.4-10.8)
[2021-10-02 11:51] LABS: ALT 33 U/L (14-59); AST 71 U/L (15-37); Albumin 3.6 g/dL (3.4-5.0); Alkaline Phosphatase 114 U/L (46-116); Anion Gap 8.2 mmol/L (3-11); BUN 15 mg/dL (7-18); Bilirubin, Total 0.2 mg/dL (0.2-1.0); CO2 26.8 mmol/L (21.0-32.0); CREATININE 0.5 mg/dL (0.55-1.02); Calcium 8.9 mg/dL (8.5-10.1); Chloride 106 mmol/L (98-107); Glucose 90 mg/dL (74-106); Potassium 4.2 mmol/L (3.5-5.1); Sodium 141 mmol/L (136-145); Total Protein 7.2 g/dL (6.4-8.2)
[2021-10-03 15:43] LABS: Chromogranin A 35 ng/mL (<93)
== END 2021-10-02 01:39 | disposition home or self-care (01) ==
LOC: LBO 01:38
PROVIDERS: PCP Family Medicine; Visit Provider Internal Medicine Hematology & Oncology
DX: C7A.019 Malignant carcinoid tumor of the small intestine, unspecified portion (principal)
CPT/HCPCS: 36415; 80053; 85025; 86316

== ENCOUNTER 2021-10-30 02:18 | Outpatient (CLI) | payer MEDICARE, OTHER, SELFPAY ==
[2021-10-30 12:43] LABS: Abs Immature Grans 0.01 10^3/uL (0.0-0.06); Absolute Basophil Count 0.02 10^3/uL (0.0-0.2); Absolute Eosinophil Count 0.14 10^3/uL (0.0-0.7); Absolute Lymphocyte Count 1.58 10^3/uL (1.2-3.4); Absolute Monocyte Count 0.29 10^3/uL (0.1-0.8); Absolute Neutrophil Count 3.34 10^3/uL (1.2-6.7); Basophils % 0.4; Eosinophils % 2.6; HCT 41.5 % (36.0-46.0); Immature Grans % 0.2; Lymphocytes % 29.4; MCH 32.3 pg (27.0-33.0); MCHC 33.7 % (32.0-36.0); MCV 96 fL (80-95); MPV 10.7 fL (8.0-11.0); Monocytes % 5.4; Platelet Count 270 10^3/uL (130-400); RBC 4.33 10^6/uL (3.93-5.22); RDW 13.1 % (11.7-14.6); WBC 5.38 10^3/uL (4.4-10.8)
[2021-10-30 12:58] LABS: ALT 27 U/L (14-59); AST 17 U/L (15-37); Albumin 3.7 g/dL (3.4-5.0); Alkaline Phosphatase 107 U/L (46-116); Anion Gap 9.4 mmol/L (3-11); BUN 25 mg/dL (7-18); Bilirubin, Total 0.3 mg/dL (0.2-1.0); CO2 28.6 mmol/L (21.0-32.0); CREATININE 0.7 mg/dL (0.55-1.02); Calcium 9.4 mg/dL (8.5-10.1); Chloride 103 mmol/L (98-107); Glucose 114 mg/dL (74-106); Sodium 141 mmol/L (136-145); Total Protein 7.7 g/dL (6.4-8.2)
[2021-11-02 09:26] LABS: Hepatitis C Ab w Rflx HCV PCR Negative (Negative)
[2021-11-02 10:55] LABS: Chromogranin A 27 ng/mL (<93)
== END 2021-10-30 02:19 | disposition home or self-care (01) ==
LOC: LBO 02:18
PROVIDERS: PCP Family Medicine; Visit Provider Internal Medicine Hematology & Oncology
DX: C7A.019 Malignant carcinoid tumor of the small intestine, unspecified portion (principal); Z11.59 Encounter for screening for other viral diseases
CPT/HCPCS: 36415; 80053; 86803; 85025; 86316

== ENCOUNTER → 2021-11-19 02:35 | Outpatient (CLI) | payer MEDICARE, OTHER, SELFPAY ==
--- NOTE | 2021-11-19 15:02 | DI.CT_ITS ---
Exam(s) CT CHEST WO EXAM: CT CHEST WO CLINICAL HISTORY: RLL INFILTRATE, CARCINOID TUMOR SMALL INTESTINE, C7A.019. TECHNIQUE: Imaging protocol: Axial computed tomography images were obtained and coronal and sagittal reformatted images were created and reviewed. COMPARISON: No exams were available for comparison FINDINGS: Tracheobronchial tree: Patent where visualized. Pulmonary parenchyma: Ground-glass infiltrates are seen in the right upper lobe, left lower lobe and left upper lobe. Linear scarring is seen in the lung bases. Mediastinum and Ly: No dominant adenopathy or fluid collection. The esophagus is unremarkable. Thyroid gland: Unremarkable. Pleura: No effusion or pneumothorax. Heart: The heart is not dilated. No coronary artery calcifications are seen. No pericardial effusion. Mitral valve calcifications are present. Aorta: Thoracic aorta non-dilated. Atherosclerosis is present. Upper abdomen: Unremarkable. Lymph nodes: Within normal limits. Soft tissues: Unremarkable. Bones:Within normal limits for the patient's age. There are old thoracic compression fracture deform ities. IMPRESSION: Ground-glass infiltrates in both upper lobes and the left lower lobe. Differential considerations inc lude acute etiologies such is edema or hemorrhage, infection or longer-term etiologies including type s of interstitial pneumonia, carcinoma, hypersensitivity pneumonitis among other etiologies. RADIATION DOSE DELIVERED: 506.01mGy.cm Total DLP 506.01mGy.cm Total DLP DATA REPOSITORY: All CT scans at this facility are submitted to the National Radiology Data Registry (NRDR) Dose Index Registry (DIR) with the [employer] (A[employer]). RADIATION OPTIMIZATION: All CT scans at this facility use at least one of these dose optimization te chniques: automated exposure control; mA and/or kV adjustment per patient size (includes targeted exa ms where dose is matched to clinical indication); or iterative reconstruction.
== END ==
PROVIDERS: PCP Family Medicine; Visit Provider Internal Medicine Hematology & Oncology
DX: C7A.019 Malignant carcinoid tumor of the small intestine, unspecified portion (principal); R91.8 Other nonspecific abnormal finding of lung field
CPT/HCPCS: 71250

== ENCOUNTER 2021-11-27 01:47 | Outpatient (CLI) | payer MEDICARE, OTHER, SELFPAY ==
[2021-11-27 13:28] LABS: Abs Immature Grans 0.02 10^3/uL (0.0-0.06); Absolute Basophil Count 0.03 10^3/uL (0.0-0.2); Absolute Eosinophil Count 0.19 10^3/uL (0.0-0.7); Absolute Lymphocyte Count 1.76 10^3/uL (1.2-3.4); Absolute Monocyte Count 0.38 10^3/uL (0.1-0.8); Absolute Neutrophil Count 2.26 10^3/uL (1.2-6.7); Basophils % 0.6; Eosinophils % 4.1; HCT 38.2 % (36.0-46.0); HGB 12.6 g/dL (11.2-15.7); Immature Grans % 0.4; Lymphocytes % 37.9; MCH 31.7 pg (27.0-33.0); MCV 96 fL (80-95); MPV 10.4 fL (8.0-11.0); Monocytes % 8.2; Neutrophils % 48.8; Platelet Count 269 10^3/uL (130-400); RBC 3.98 10^6/uL (3.93-5.22); RDW 13.2 % (11.7-14.6); RDW-SD 47.2 fL; WBC 4.64 10^3/uL (4.4-10.8)
[2021-11-27 14:06] LABS: ALT 30 U/L (14-59); AST 19 U/L (15-37); Albumin 3.3 g/dL (3.4-5.0); Alkaline Phosphatase 99 U/L (46-116); Anion Gap 9.5 mmol/L (3-11); BUN 16 mg/dL (7-18); Bilirubin, Total 0.3 mg/dL (0.2-1.0); CO2 25.5 mmol/L (21.0-32.0); CREATININE 0.5 mg/dL (0.55-1.02); Calcium 8.8 mg/dL (8.5-10.1); Chloride 106 mmol/L (98-107); Glucose 117 mg/dL (74-106); Potassium 3.8 mmol/L (3.5-5.1); Sodium 141 mmol/L (136-145); Total Protein 7.1 g/dL (6.4-8.2)
[2021-11-27 16:29] LABS: Vitamin B12 1382 pg/mL (193-986)
[2021-11-28 13:43] LABS: Chromogranin A 31 ng/mL (<93)
== END 2021-11-27 01:48 | disposition home or self-care (01) ==
LOC: LBO 01:47
PROVIDERS: PCP Family Medicine; Visit Provider Internal Medicine Hematology & Oncology
DX: E53.8 Deficiency of other specified B group vitamins (principal); C7A.019 Malignant carcinoid tumor of the small intestine, unspecified portion
CPT/HCPCS: 80053; 82607; 85025; 86316

== ENCOUNTER 2021-12-25 02:18 | Outpatient (CLI) | payer MEDICARE, OTHER, SELFPAY ==
[2021-12-25 12:20] LABS: Abs Immature Grans 0.01 10^3/uL (0.0-0.06); Absolute Basophil Count 0.03 10^3/uL (0.0-0.2); Absolute Eosinophil Count 0.14 10^3/uL (0.0-0.7); Absolute Lymphocyte Count 1.68 10^3/uL (1.2-3.4); Basophils % 0.5; Eosinophils % 2.6; HGB 13.3 g/dL (11.2-15.7); Immature Grans % 0.2; Lymphocytes % 30.8; MCHC 33.3 % (32.0-36.0); MCV 96 fL (80-95); MPV 10.1 fL (8.0-11.0); Monocytes % 7.3; Neutrophils % 58.6; Platelet Count 270 10^3/uL (130-400); RBC 4.15 10^6/uL (3.93-5.22); RDW 13.8 % (11.7-14.6); RDW-SD 49.1 fL; WBC 5.46 10^3/uL (4.4-10.8)
[2021-12-25 13:04] LABS: ALT 30 U/L (14-59); AST 18 U/L (15-37); Albumin 3.6 g/dL (3.4-5.0); Alkaline Phosphatase 117 U/L (46-116); Anion Gap 8.5 mmol/L (3-11); BUN 19 mg/dL (7-18); Bilirubin, Total 0.2 mg/dL (0.2-1.0); CO2 28.5 mmol/L (21.0-32.0); CREATININE 0.7 mg/dL (0.55-1.02); Chloride 106 mmol/L (98-107); Estimated GFR 87.92 (mL/min/1.73m2); Glucose 106 mg/dL (74-106); Potassium 3.7 mmol/L (3.5-5.1); Sodium 143 mmol/L (136-145); Total Protein 7.5 g/dL (6.4-8.2); Vitamin B12 917 pg/mL (193-986)
[2021-12-26 15:31] LABS: Chromogranin A 30 ng/mL (<93)
== END 2021-12-25 02:19 | disposition home or self-care (01) ==
LOC: LBO 02:18
PROVIDERS: PCP Family Medicine; Visit Provider Internal Medicine Hematology & Oncology
DX: C7A.019 Malignant carcinoid tumor of the small intestine, unspecified portion (principal)
CPT/HCPCS: 36415; 80053; 82607; 85025; 86316

== ENCOUNTER 2022-01-04 03:17 | Outpatient (CLI) | payer MEDICARE, OTHER, SELFPAY ==
[2022-01-04 12:41] LABS: Source Nasal/Nares
[2022-01-04 16:05] LABS: COVID-19 PCR Negative (Negative)
== END 2022-01-04 03:18 | disposition home or self-care (01) ==
PROVIDERS: PCP Family Medicine; Visit Provider Family Medicine
DX: Z20.822 Contact with and (suspected) exposure to COVID-19 (principal)
CPT/HCPCS: 87635

== ENCOUNTER → 2022-01-12 01:07 | Outpatient (CLI) | payer MEDICARE, OTHER, SELFPAY ==
--- NOTE | 2022-01-12 10:30 | ST.MBS ---
Date of Service Date of service: 01/12/22 Time of Service: 10:30 Modified Barium Swallow Study Findings: Video fluoroscopic Swallowing Evaluation (VFSE) / Modified Barium Swallow Study (MBSS) Speech Language Pathology Report Patient referred for VFSE/MBSS from Dr. Friend given recent report of trouble swallowing. 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 On Chest CT 11/19/21, incidental findings indicated scattered ground-glass and air space opacities. Seen 12/09 at [facility] by CORPORATE TREASURER who recommended MBSS based on patient report of pharygeal and esophageal stasis and mild possible s/sx aspiration. Patient also with medical history significant for Sleep Apnea and GERD on Omeprazole with esophagram in 2020 indicating largely normal results with mild tertiary contractions. PFSH All Active Problems?(Updated 10/30/21 @ 05:31 by Dallin Welch MD) Screening for viral disease (Acute) Onychogryphosis (Acute) Thoracic back pain (Acute) Tumor (Acute ~05/01/19) [facility] Neuro endocrine tumor s/p resection-kbLPRD (laryngopharyngeal reflux disease) (Acute) Dr. Barkerk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;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 ([facility]) Bilateral mastectomy 06/03 Depressive disorder (Acute) anxiety Intestinal obstruction (Acute 05/05/12) 2011 small bowel obstruction (in [place] while visiting daughter) Gastro-esophageal reflux disease without esophagitis (Acute) FLOR (obstructive sleep apnea) (Chronic) Abnormal auditory perception (Acute) Phlegm in throat (Acute) blood likely from irritation doubt neoplasmChest pain (Acute) Fatigue (Acute 03/28/12) Onychomycosis (Acute 03/03/12) Palpitations (Acute) Restless legs syndrome (Acute 03/24/07) Status post bilateral mastectomy (Acute) Hip pain, right (Chronic) Abdominal mass (Acute 04/03/13) f/u CT scan [facility] 05/30/13, 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 Depressive disorder anxiety Gastro-esophageal reflux disease without esophagitis Intestinal obstruction (05/05/12) 2011 small bowel obstruction (in [place] while visiting daughter) Malignant neoplasm of female breast 2000-right DCIS-lumpectomy and radiation;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 ([facility]) Bilateral mastectomy 06/03 FLOR (obstructive sleep apnea) Surgical History? Breast, Mastectomy Bilateral (~05/2008) History of total right hip arthroplasty (~11/20/19) [facility]/ small bowel [facility]05[facility]01/19[facility] IMPRESSIONS: Swallow safety is preserved; swallow efficiency is preserved. Overall swallow function appears safe - Mild chronic oropharyngoesophageal dysphagia. Characterized primarily by: -delayed pharyngeal initiation and mild reduced/sluggish hyo-laryngealmotility resulting in penetration during the swallow from initial bolus -mild retrograde flow and retention in distal portion of esophagus, per radiologist, noting mild tertiary contractions but otherwise esophageal phase WFL. Based on patient report, sensation of esophageal retention is significant beyond what what was observed in today's study. Patient appears to be at low risk for potential aspiration PNA and/or pulmonary compromise and low risk for malnutrition, low risk for dehydration. Diet modification is not indicated; non-oral nutrition is not indicated. Swallow prognosis is good given: Positive prognostic factors: Severity, Cognitive status, Negative prognostic factors: Age, and pending patient/caregiver training in risk management as outlined, including use of trialed compensatory strategies. Patient appears to be a good candidate for behavioral swallow rehabilitation, likely to benefit from a single follow-up regarding education and recommendations r/t these results. RECOMMENDATIONS: Diet Texture Recommendation:? IDDSI LEVEL SOLIDS 7-Regular Solids LIQUIDS 0-Thin Liquids Please see further details at?[email or web address] MEDICATIONS Whole with 0-Thin Liquids Diet texture modification is per patient's preference; please adjust diet textures at patient's discretion & collaboration with care team. Do not alter medications (e.g., cut)? without advice from your MD or pharmacist. Risk Management Strategies:? Behavioral reflux precautions, including upright position during + 90 mins after meals. Small bites, approx [id number] Small sips, approx 10 mL Small Meals Throughout The Day Multiple swallows per bolus to encourage clearance of pharyngeal stasis/residue Control risk factors for aspiration pneumonia via (a) thorough oral hygiene & (b) maintaining physical mobility as tolerated PLAN: Therapy: Recommend subsequent outpatient session with CORPORATE TREASURER to review results of today's exam and develop treatment plan as appropriate. May consider the following: Further Training/Education in Risk Management Further Counseling re: Options for maintaining quality of life in context of dysphagia presentation Goals: TBD pending patient/caregiver interview Defer to treating clinician Follow-up exam: N/A ----- OBJECTIVE Videofluoroscopic Swallow Evaluation (VFSE/MBSS) was conducted in the lateral and [id number] projection by Speech-Language Pathologist, in collaboration with Radiologist, to evaluate oropharyngeal swallow function. Anatomic view under fluoroscopy: WFL PO Barium Contrast Trials Oral barium water-soluble contrast was administered as follows: IDDSI Level 0 Varibar thin liquid (40% w/v) IDDSI Level 2 Varibar nectar thick/mildly thick liquid (40% w/v) IDDSI Level 4 Varibar pudding/pureed/extremely thick (40% w/v) IDDSI Level 7 Regular Solid: 1/2 yann cracker coated in 3 mL Varibar pudding 13 mm barium tablet taken with Thin Liquids. MBSImP Component Scores: COMPONENT Scale SCORE 1 Lip closure (0-4) 0 Resulted in no labial escape 2 Hold Position (0-3) 0 Maintained a cohesive bolus between tongue to palatal seal 3 Bolus Preparation (0-4) 0 Resulted in timely and efficient chewing and mashing 4 Bolus Transport (0-4) 0 Was with brisk tongue motion 5 Oral Residue (0-4) 1 Was a trace, lining oral structures 6 Swallow Initiation (0-4) 3 Occurred when the bolus head was in the pyriform sinuses (earlier for puree/ 7 Soft Palate Elevation (0-4) 0 Resulted in no bolus between soft palate and the pharyngeal wall 8 Laryngeal Elevation (0-3) 1 Was decreased with partial superior movement of thyroid cartilage/partial approximation of arytenoids to epiglottic petiole 9 Anterior Hyoid Motion (0-2) 0 Demonstrated complete anterior movement 10 Epiglottic Movement (0-2) 0 Resulted in complete inversion 11 Laryngeal Closure (0-2) 1 Was incomplete with narrow a column of air/contrast in laryngeal vestibule 12 Pharyngeal Stripping Wave (0-2) 1 Was present, but diminished 13 Pharyngeal Contraction (0-3) 0 Was complete 14 PES Opening (0-3) 0 Was completely distended and complete duration with no obstruction of flow 15 Tongue Base Retraction (0-4) 1 Allowed a trace column of contrast or air between tongue base and pharyngeal wall 16 Pharyngeal Residue (0-4) 1 Showed a trace within or on pharyngeal structures 17 Esophageal Clearance (0-4) 2 Resulted in ?brief esophageal retention with very brief retrograde flow below pharyngoesophageal segment. Other observations: Epiglottic inversion and hyo-laryngeal excursion appearing sluggish, contributing to penetration with large volume thin liquids. Per radiologist, noting tertiary contractions in esophageal phase. Results: COMPONENT Scale SCORE 1 Oral Score (0-18) 3 2 Pharyngeal Score (0-29) 3 3 Esophageal Score (0-4) 2 Dysphagia Outcome and Severity Scale: COMPONENT Scale SCORE 1 LEVEL (1-7) 6 Full PO: Normal Diet - Within functional limits/modified independence Penetration-Aspiration Scale: COMPONENT Scale SCORE 1 Thin liquid (1-8) 2 Contrast entered the airway, remained above the vocal folds, and was ejected from the airway. No contrast entered the airway for low volume thin liquids. 2 Abernathy thick (1-8) NA 3 Honey thick (1-8) NA 4 Pudding thick (1-8) 1 Contrast did not enter the airway 5 Cookie (1-8) 1 Contrast did not enter the airway Trialed Compensatory Strategies & Outcome: Maneuvers Successful (+) Unsuccessful (-) Postures Successful (+) Unsuccessful (-) 3 second Preparatory Set? ? +/- Chin Tuck Posture? ? Cough? ? Posterior Head tilt? Reflexive? Cued? Throat Clear? ? Head Tilt to? Reflexive? Left? Cued? Right? ? Saliva swallow? ? + to clear oral residue (spontaneous) Head Turn/Rotate to? ? Supraglottic Swallow? Left? ? Super-supraglottic Swallow? Right? ? Bolus Modifications Successful (+) Unsuccessful (-) Delivery/Alternating Consistencies ? Follow with Liquid Wash ? Follow with Solid Bolus? Delivery/Via Straw? ? Reduced Volume? ? + to reduce/eliminate penetration into laryngeal vestibule Reduced Rate of Intake? ? + to reduce/eliminate penetration into laryngeal vestibule Increased Viscosity? ? Other:?? ? Thank you for allowing us to take part in this patient's care. Please feel free to contact the [facility] Speech Language Pathology Department with any questions/concerns. Coding CPT Codes MOTION FLUOROSCOPY/SWALLOW - [id number] ([id number])
[2022-01-12] MEDS: Barium Sulfate 81% w/w for Oral Suspension 148 GM BTL 90 GM PO (11:14)
[2022-01-12] MEDS: Barium Sulfate 700 MG TAB PO (11:14)
[2022-01-12] MEDS: Barium Sulfate 40% W/V 240 ML BTL 70 ML PO (11:15)
[2022-01-12] MEDS: Barium Sulfate 40% W/V 1500 CPS 250 ML BTL PO (11:15)
[2022-01-12] MEDS: Barium Sulfate Oral Paste 40% W/V 230 ML TUBE 13 ML PO (11:16)
--- NOTE | 2022-01-12 11:17 | DI.RAD_ITS ---
Exam(s) RF MODIFIED SPEECH BA SWALLOW TECHNIQUE: Modified barium swallow was performed in conjunction with speech pathology. CONTRAST MATERIAL: Oral barium Oral water soluble contrast was administered. COMPARISON: No exams were available for comparison FINDINGS: Fluoroscopy was provided by the radiologist for modified barium swallow performed by the speech thera bamt. There was some penetration but no aspiration evident. No evidence of significant vallecular residue. Swallowed radiopaque barium pill passed quickly through the esophagus into the stomach without signif icant holdup in the esophagus. No obvious hiatal hernia noted IMPRESSION: Some penetration but no aspiration evident. Other findings as above. Please refer to speech therapist report. RADIATION DOSE DELIVERED: madhavi Persaud=4.53 mGy
== END ==
PROVIDERS: PCP Family Medicine; Visit Provider Internal Medicine Hematology & Oncology
DX: R13.10 Dysphagia, unspecified (principal)
CPT/HCPCS: 92611; 74221

== ENCOUNTER 2022-01-22 18:26 | Outpatient (CLI) | payer MEDICARE, OTHER, SELFPAY ==
[2022-01-22 13:02] LABS: Abs Immature Grans 0.01 10^3/uL (0.0-0.06); Absolute Basophil Count 0.04 10^3/uL (0.0-0.2); Absolute Eosinophil Count 0.11 10^3/uL (0.0-0.7); Absolute Lymphocyte Count 1.74 10^3/uL (1.2-3.4); Absolute Monocyte Count 0.34 10^3/uL (0.1-0.8); Absolute Neutrophil Count 2.75 10^3/uL (1.2-6.7); Basophils % 0.8; Eosinophils % 2.2; HGB 12.9 g/dL (11.2-15.7); Immature Grans % 0.2; Lymphocytes % 34.9; MCH 31.9 pg (27.0-33.0); MCHC 33.1 % (32.0-36.0); MCV 97 fL (80-95); MPV 10.5 fL (8.0-11.0); Monocytes % 6.8; Neutrophils % 55.1; Platelet Count 251 10^3/uL (130-400); RBC 4.04 10^6/uL (3.93-5.22); RDW 13.8 % (11.7-14.6); RDW-SD 49.1 fL; WBC 4.99 10^3/uL (4.4-10.8)
[2022-01-22 13:24] LABS: ALT 28 U/L (14-59); AST 22 U/L (15-37); Albumin 3.7 g/dL (3.4-5.0); Alkaline Phosphatase 105 U/L (46-116); Anion Gap 7.7 mmol/L (3-11); BUN 18 mg/dL (7-18); Bilirubin, Total 0.3 mg/dL (0.2-1.0); CO2 26.3 mmol/L (21.0-32.0); CREATININE 0.9 mg/dL (0.55-1.02); Calcium 9.3 mg/dL (8.5-10.1); Chloride 105 mmol/L (98-107); Estimated GFR 65.03 (mL/min/1.73m2); Glucose 99 mg/dL (74-106); Potassium 4.1 mmol/L (3.5-5.1); Sodium 139 mmol/L (136-145); Total Protein 7.2 g/dL (6.4-8.2)
[2022-01-25 10:59] LABS: Chromogranin A 32 ng/mL (<93)
== END 2022-01-22 18:27 | disposition home or self-care (01) ==
LOC: LBO 18:28
PROVIDERS: PCP Family Medicine; Visit Provider Internal Medicine Hematology & Oncology
DX: C7A.019 Malignant carcinoid tumor of the small intestine, unspecified portion (principal)
CPT/HCPCS: 36415; 80053; 85025; 86316

== ENCOUNTER 2022-02-19 10:53 | Outpatient (CLI) | payer MEDICARE, OTHER, SELFPAY ==
[2022-02-19 13:53] LABS: Abs Immature Grans 0.01 10^3/uL (0.0-0.06); Absolute Basophil Count 0.03 10^3/uL (0.0-0.2); Absolute Lymphocyte Count 1.63 10^3/uL (1.2-3.4); Absolute Monocyte Count 0.37 10^3/uL (0.1-0.8); Absolute Neutrophil Count 2.62 10^3/uL (1.2-6.7); Basophils % 0.6; Eosinophils % 2.1; HCT 38.7 % (36.0-46.0); HGB 12.9 g/dL (11.2-15.7); Immature Grans % 0.2; Lymphocytes % 34.2; MCH 32.3 pg (27.0-33.0); MCHC 33.3 % (32.0-36.0); MCV 97 fL (80-95); MPV 11.1 fL (8.0-11.0); Monocytes % 7.8; Neutrophils % 55.1; Platelet Count 294 10^3/uL (130-400); RDW 13.8 % (11.7-14.6); RDW-SD 48.9 fL; WBC 4.76 10^3/uL (4.4-10.8)
[2022-02-19 14:18] LABS: ALT 26 U/L (14-59); AST 19 U/L (15-37); Albumin 3.7 g/dL (3.4-5.0); Alkaline Phosphatase 107 U/L (46-116); Anion Gap 6.2 mmol/L (3-11); BUN 20 mg/dL (7-18); Bilirubin, Total 0.3 mg/dL (0.2-1.0); CO2 29.8 mmol/L (21.0-32.0); CREATININE 0.9 mg/dL (0.55-1.02); Calcium 9.4 mg/dL (8.5-10.1); Chloride 103 mmol/L (98-107); Estimated GFR 65.03 (mL/min/1.73m2); Glucose 164 mg/dL (74-106); Potassium 3.6 mmol/L (3.5-5.1); Sodium 139 mmol/L (136-145); Total Protein 7.4 g/dL (6.4-8.2)
[2022-02-22 13:44] LABS: Chromogranin A 31 ng/mL (<93)
== END 2022-02-19 10:54 | disposition home or self-care (01) ==
LOC: LBO 10:57
PROVIDERS: PCP Family Medicine; Visit Provider Internal Medicine Hematology & Oncology
DX: C7A.012 Malignant carcinoid tumor of the ileum (principal)
CPT/HCPCS: 36415; 80053; 85025; 86316

== ENCOUNTER 2022-03-19 14:10 | Outpatient (CLI) | payer MEDICARE, OTHER, SELFPAY ==
[2022-03-19 13:52] LABS: Abs Immature Grans 0.02 10^3/uL (0.0-0.06); Absolute Basophil Count 0.04 10^3/uL (0.0-0.2); Absolute Eosinophil Count 0.17 10^3/uL (0.0-0.7); Absolute Lymphocyte Count 1.91 10^3/uL (1.2-3.4); Absolute Monocyte Count 0.53 10^3/uL (0.1-0.8); Basophils % 0.6; Eosinophils % 2.7; HCT 38.9 % (36.0-46.0); HGB 12.7 g/dL (11.2-15.7); Immature Grans % 0.3; MCH 31.4 pg (27.0-33.0); MCHC 32.6 % (32.0-36.0); MCV 96 fL (80-95); MPV 10.2 fL (8.0-11.0); Monocytes % 8.3; Neutrophils % 58.1; Platelet Count 282 10^3/uL (130-400); RBC 4.05 10^6/uL (3.93-5.22); RDW 13.3 % (11.7-14.6); RDW-SD 47.3 fL; WBC 6.37 10^3/uL (4.4-10.8)
[2022-03-19 14:09] LABS: ALT 26 U/L (14-59); AST 18 U/L (15-37); Albumin 3.7 g/dL (3.4-5.0); Alkaline Phosphatase 110 U/L (46-116); Anion Gap 7.3 mmol/L (3-11); BUN 15 mg/dL (7-18); Bilirubin, Total 0.4 mg/dL (0.2-1.0); CO2 26.7 mmol/L (21.0-32.0); CREATININE 0.7 mg/dL (0.55-1.02); Calcium 9.1 mg/dL (8.5-10.1); Chloride 104 mmol/L (98-107); Estimated GFR 87.92 (mL/min/1.73m2); Glucose 97 mg/dL (74-106); Potassium 4.1 mmol/L (3.5-5.1); Sodium 138 mmol/L (136-145); Total Protein 7.4 g/dL (6.4-8.2)
[2022-03-23 09:22] LABS: Chromogranin A 49 ng/mL (<93)
== END 2022-03-19 14:11 | disposition home or self-care (01) ==
LOC: LBO 14:11
PROVIDERS: PCP Family Medicine; Visit Provider Internal Medicine Hematology & Oncology
DX: C7A.019 Malignant carcinoid tumor of the small intestine, unspecified portion (principal)
CPT/HCPCS: 36415; 80053; 85025; 86316

== ENCOUNTER 2022-04-16 01:27 | Outpatient (CLI) | payer MEDICARE, OTHER, SELFPAY ==
[2022-04-16 12:20] LABS: Abs Immature Grans 0.02 10^3/uL (0.0-0.06); Absolute Basophil Count 0.04 10^3/uL (0.0-0.2); Absolute Lymphocyte Count 1.81 10^3/uL (1.2-3.4); Absolute Neutrophil Count 3.28 10^3/uL (1.2-6.7); Basophils % 0.7; Eosinophils % 3.5; HCT 39.6 % (36.0-46.0); HGB 13.1 g/dL (11.2-15.7); Immature Grans % 0.3; Lymphocytes % 31.5; MCH 31.8 pg (27.0-33.0); MCHC 33.1 % (32.0-36.0); MCV 96 fL (80-95); MPV 10.3 fL (8.0-11.0); Platelet Count 295 10^3/uL (130-400); RBC 4.12 10^6/uL (3.93-5.22); RDW 13.3 % (11.7-14.6); RDW-SD 47.4 fL; WBC 5.75 10^3/uL (4.4-10.8)
[2022-04-16 12:35] LABS: ALT 28 U/L (14-59); AST 24 U/L (15-37); Albumin 3.8 g/dL (3.4-5.0); Alkaline Phosphatase 117 U/L (46-116); Anion Gap 7.1 mmol/L (3-11); BUN 16 mg/dL (7-18); Bilirubin, Total 0.4 mg/dL (0.2-1.0); CO2 27.9 mmol/L (21.0-32.0); CREATININE 0.7 mg/dL (0.55-1.02); Calcium 9.5 mg/dL (8.5-10.1); Chloride 104 mmol/L (98-107); Estimated GFR 87.92 (mL/min/1.73m2); Glucose 104 mg/dL (74-106); Potassium 4.4 mmol/L (3.5-5.1); Sodium 139 mmol/L (136-145); Total Protein 7.6 g/dL (6.4-8.2)
[2022-04-21 13:20] LABS: Chromogranin A 35 ng/mL (<93)
== END 2022-04-16 01:28 | disposition home or self-care (01) ==
PROVIDERS: PCP Family Medicine; Visit Provider Internal Medicine Hematology & Oncology
DX: C7A.012 Malignant carcinoid tumor of the ileum (principal)
CPT/HCPCS: 36415; 80053; 85025; 86316

== ENCOUNTER 2022-05-14 09:07 | Outpatient (CLI) | payer MEDICARE, OTHER, SELFPAY ==
[2022-05-14 08:57] LABS: Abs Immature Grans 0.01 10^3/uL (0.0-0.06); Absolute Basophil Count 0.03 10^3/uL (0.0-0.2); Absolute Eosinophil Count 0.31 10^3/uL (0.0-0.7); Absolute Lymphocyte Count 1.63 10^3/uL (1.2-3.4); Absolute Monocyte Count 0.35 10^3/uL (0.1-0.8); Absolute Neutrophil Count 2.89 10^3/uL (1.2-6.7); Basophils % 0.6; Eosinophils % 5.9; HCT 41.1 % (36.0-46.0); HGB 13.5 g/dL (11.2-15.7); Immature Grans % 0.2; Lymphocytes % 31.2; MCH 31.9 pg (27.0-33.0); MCHC 32.8 % (32.0-36.0); MCV 97 fL (80-95); MPV 10.6 fL (8.0-11.0); Monocytes % 6.7; Neutrophils % 55.4; Platelet Count 273 10^3/uL (130-400); RBC 4.23 10^6/uL (3.93-5.22); RDW 13.6 % (11.7-14.6); RDW-SD 49.1 fL; WBC 5.22 10^3/uL (4.4-10.8)
[2022-05-14 09:21] LABS: ALT 33 U/L (14-59); AST 22 U/L (15-37); Albumin 3.7 g/dL (3.4-5.0); Alkaline Phosphatase 109 U/L (46-116); BUN 21 mg/dL (7-18); Bilirubin, Total 0.4 mg/dL (0.2-1.0); CREATININE 0.8 mg/dL (0.55-1.02); Calcium 9.2 mg/dL (8.5-10.1); Chloride 104 mmol/L (98-107); Glucose 106 mg/dL (74-106); Sodium 138 mmol/L (136-145); Total Protein 7.5 g/dL (6.4-8.2)
[2022-05-17 10:37] LABS: Chromogranin A 56 ng/mL (<93)
== END 2022-05-14 09:08 | disposition home or self-care (01) ==
LOC: LBO 09:08
PROVIDERS: PCP Family Medicine; Visit Provider Internal Medicine Hematology & Oncology
DX: C7A.019 Malignant carcinoid tumor of the small intestine, unspecified portion (principal)
CPT/HCPCS: 36415; 80053; 85025; 86316

== ENCOUNTER 2022-06-11 13:31 | Outpatient (CLI) | payer MEDICARE, OTHER, SELFPAY ==
[2022-06-11 13:04] LABS: Abs Immature Grans 0.01 10^3/uL (0.0-0.06); Absolute Basophil Count 0.05 10^3/uL (0.0-0.2); Absolute Eosinophil Count 0.15 10^3/uL (0.0-0.7); Absolute Lymphocyte Count 1.65 10^3/uL (1.2-3.4); Absolute Monocyte Count 0.37 10^3/uL (0.1-0.8); Basophils % 1.2; Eosinophils % 3.7; HCT 40.5 % (36.0-46.0); HGB 13.3 g/dL (11.2-15.7); Immature Grans % 0.2; Lymphocytes % 40.9; MCH 31.7 pg (27.0-33.0); MCHC 32.8 % (32.0-36.0); MCV 97 fL (80-95); MPV 10.7 fL (8.0-11.0); Monocytes % 9.2; Neutrophils % 44.8; Platelet Count 277 10^3/uL (130-400); RBC 4.19 10^6/uL (3.93-5.22); RDW 13.4 % (11.7-14.6); RDW-SD 48.2 fL; WBC 4.03 10^3/uL (4.4-10.8)
[2022-06-11 13:06] LABS: Absolute Neutrophil Count 1.81 10^3/uL (1.2-6.7)
[2022-06-11 13:15] LABS: ALT 43 U/L (14-59); AST 29 U/L (15-37); Albumin 3.9 g/dL (3.4-5.0); Alkaline Phosphatase 108 U/L (46-116); Anion Gap 8.1 mmol/L (3-11); BUN 15 mg/dL (7-18); Bilirubin, Total 0.5 mg/dL (0.2-1.0); CO2 27.9 mmol/L (21.0-32.0); CREATININE 0.7 mg/dL (0.55-1.02); Calcium 9.5 mg/dL (8.5-10.1); Chloride 101 mmol/L (98-107); Estimated GFR 87.92 (mL/min/1.73m2); Glucose 108 mg/dL (74-106); Potassium 4.4 mmol/L (3.5-5.1); Sodium 137 mmol/L (136-145); Total Protein 7.5 g/dL (6.4-8.2)
[2022-06-14 09:47] LABS: Chromogranin A 38 ng/mL (<93)
== END 2022-06-11 13:32 | disposition home or self-care (01) ==
LOC: LBO 13:33
PROVIDERS: PCP Family Medicine; Visit Provider Internal Medicine Hematology & Oncology
DX: C7A.019 Malignant carcinoid tumor of the small intestine, unspecified portion (principal)
CPT/HCPCS: 36415; 80053; 85025; 86316

== ENCOUNTER 2022-07-09 02:16 | Outpatient (CLI) | payer MEDICARE, OTHER, SELFPAY ==
[2022-07-09 10:14] LABS: Abs Immature Grans 0.02 10^3/uL (0.0-0.06); Absolute Basophil Count 0.04 10^3/uL (0.0-0.2); Absolute Eosinophil Count 0.18 10^3/uL (0.0-0.7); Absolute Lymphocyte Count 1.69 10^3/uL (1.2-3.4); Absolute Neutrophil Count 3.31 10^3/uL (1.2-6.7); Basophils % 0.7; Eosinophils % 3.2; HCT 39.8 % (36.0-46.0); HGB 13.7 g/dL (11.2-15.7); Immature Grans % 0.4; MCH 32.6 pg (27.0-33.0); MCHC 34.4 % (32.0-36.0); MCV 95 fL (80-95); MPV 10.7 fL (8.0-11.0); Monocytes % 7.1; Neutrophils % 58.6; Platelet Count 259 10^3/uL (130-400); RDW 13.3 % (11.7-14.6); RDW-SD 46.3 fL; WBC 5.64 10^3/uL (4.4-10.8)
[2022-07-09 10:34] LABS: ALT 33 U/L (14-59); AST 27 U/L (15-37); Albumin 3.6 g/dL (3.4-5.0); Alkaline Phosphatase 107 U/L (46-116); Anion Gap 7.6 mmol/L (3-11); BUN 21 mg/dL (7-18); Bilirubin, Total 0.4 mg/dL (0.2-1.0); CO2 25.4 mmol/L (21.0-32.0); CREATININE 0.7 mg/dL (0.55-1.02); Chloride 104 mmol/L (98-107); Estimated GFR 87.92 (mL/min/1.73m2); Glucose 149 mg/dL (74-106); Potassium 3.6 mmol/L (3.5-5.1); Sodium 137 mmol/L (136-145)
[2022-07-12 13:26] LABS: Chromogranin A 32 ng/mL (<93)
== END 2022-07-09 02:17 | disposition home or self-care (01) ==
LOC: LBO 02:16
PROVIDERS: PCP Family Medicine; Visit Provider Internal Medicine Hematology & Oncology
DX: C7A.019 Malignant carcinoid tumor of the small intestine, unspecified portion (principal)
CPT/HCPCS: 36415; 80053; 85025; 86316

== ENCOUNTER 2022-09-03 01:59 | Outpatient (CLI) | payer MEDICARE, OTHER, SELFPAY ==
[2022-09-03 12:57] LABS: Abs Immature Grans 0.01 10^3/uL (0.0-0.06); Absolute Basophil Count 0.02 10^3/uL (0.0-0.2); Absolute Eosinophil Count 0.11 10^3/uL (0.0-0.7); Absolute Lymphocyte Count 1.49 10^3/uL (1.2-3.4); Absolute Monocyte Count 0.38 10^3/uL (0.1-0.8); Absolute Neutrophil Count 1.94 10^3/uL (1.2-6.7); Basophils % 0.5; Eosinophils % 2.8; HCT 39.7 % (36.0-46.0); HGB 13.3 g/dL (11.2-15.7); Immature Grans % 0.3; Lymphocytes % 37.7; MCHC 33.5 % (32.0-36.0); MCV 95 fL (80-95); MPV 10.1 fL (8.0-11.0); Monocytes % 9.6; Neutrophils % 49.1; Platelet Count 267 10^3/uL (130-400); RBC 4.16 10^6/uL (3.93-5.22); RDW 13.5 % (11.7-14.6); RDW-SD 47.8 fL; WBC 3.95 10^3/uL (4.4-10.8)
[2022-09-03 13:19] LABS: ALT 33 U/L (14-59); AST 24 U/L (15-37); Albumin 3.8 g/dL (3.4-5.0); Alkaline Phosphatase 106 U/L (46-116); Anion Gap 7.5 mmol/L (3-11); BUN 16 mg/dL (7-18); Bilirubin, Total 0.5 mg/dL (0.2-1.0); CO2 26.5 mmol/L (21.0-32.0); CREATININE 0.7 mg/dL (0.55-1.02); Calcium 9.4 mg/dL (8.5-10.1); Chloride 105 mmol/L (98-107); Estimated GFR 87.92 (mL/min/1.73m2); Glucose 112 mg/dL (74-106); Potassium 4.2 mmol/L (3.5-5.1); Sodium 139 mmol/L (136-145); Total Protein 7.2 g/dL (6.4-8.2)
[2022-09-06 10:33] LABS: Chromogranin A 23 ng/mL (<93)
== END 2022-09-03 02:00 | disposition home or self-care (01) ==
LOC: LBO 01:59
PROVIDERS: PCP Family Medicine; Visit Provider Internal Medicine Hematology & Oncology
DX: C7A.012 Malignant carcinoid tumor of the ileum (principal)
CPT/HCPCS: 36415; 80053; 85025; 86316

== ENCOUNTER 2022-10-01 02:09 | Outpatient (CLI) | payer MEDICARE, OTHER, SELFPAY ==
[2022-10-01 13:29] LABS: Abs Immature Grans 0.02 10^3/uL (0.0-0.06); Absolute Basophil Count 0.03 10^3/uL (0.0-0.2); Absolute Eosinophil Count 0.12 10^3/uL (0.0-0.7); Absolute Lymphocyte Count 1.97 10^3/uL (1.2-3.4); Absolute Monocyte Count 0.44 10^3/uL (0.1-0.8); Absolute Neutrophil Count 3.12 10^3/uL (1.2-6.7); Basophils % 0.5; Eosinophils % 2.1; HCT 40.3 % (36.0-46.0); HGB 13.4 g/dL (11.2-15.7); Immature Grans % 0.4; Lymphocytes % 34.6; MCH 32.4 pg (27.0-33.0); MCHC 33.3 % (32.0-36.0); MCV 97 fL (80-95); MPV 10.3 fL (8.0-11.0); Monocytes % 7.7; Neutrophils % 54.7; Platelet Count 251 10^3/uL (130-400); RBC 4.14 10^6/uL (3.93-5.22); RDW 13.4 % (11.7-14.6); RDW-SD 48.3 fL
[2022-10-01 13:43] LABS: ALT 34 U/L (14-59); AST 21 U/L (15-37); Albumin 3.9 g/dL (3.4-5.0); Alkaline Phosphatase 107 U/L (46-116); Anion Gap 4.2 mmol/L (3-11); BUN 19 mg/dL (7-18); Bilirubin, Total 0.4 mg/dL (0.2-1.0); CO2 30.8 mmol/L (21.0-32.0); CREATININE 0.7 mg/dL (0.55-1.02); Calcium 9.1 mg/dL (8.5-10.1); Chloride 102 mmol/L (98-107); Estimated GFR 87.92 (mL/min/1.73m2); Glucose 150 mg/dL (74-106); Potassium 3.9 mmol/L (3.5-5.1); Sodium 137 mmol/L (136-145); Total Protein 7.2 g/dL (6.4-8.2)
[2022-10-04 10:57] LABS: Chromogranin A 24 ng/mL (<93)
== END 2022-10-01 02:10 | disposition home or self-care (01) ==
LOC: LBO 02:09
PROVIDERS: PCP Family Medicine; Visit Provider Internal Medicine Hematology & Oncology
DX: C7A.019 Malignant carcinoid tumor of the small intestine, unspecified portion (principal)
CPT/HCPCS: 36415; 80053; 85025; 86316

== ENCOUNTER 2022-10-29 02:16 | Outpatient (CLI) | payer MEDICARE, OTHER, SELFPAY ==
[2022-10-29 13:47] LABS: Abs Immature Grans 0.01 10^3/uL (0.0-0.06); Absolute Basophil Count 0.03 10^3/uL (0.0-0.2); Absolute Eosinophil Count 0.08 10^3/uL (0.0-0.7); Absolute Lymphocyte Count 1.61 10^3/uL (1.2-3.4); Absolute Monocyte Count 0.33 10^3/uL (0.1-0.8); Absolute Neutrophil Count 2.23 10^3/uL (1.2-6.7); Basophils % 0.7; Eosinophils % 1.9; HCT 37.6 % (36.0-46.0); HGB 12.7 g/dL (11.2-15.7); Immature Grans % 0.2; Lymphocytes % 37.5; MCH 32.6 pg (27.0-33.0); MCHC 33.8 % (32.0-36.0); MCV 96 fL (80-95); MPV 10.1 fL (8.0-11.0); Monocytes % 7.7; Platelet Count 249 10^3/uL (130-400); RDW-SD 46.6 fL; WBC 4.29 10^3/uL (4.4-10.8)
[2022-10-29 14:03] LABS: ALT 29 U/L (14-59); AST 24 U/L (15-37); Albumin 3.8 g/dL (3.4-5.0); Alkaline Phosphatase 103 U/L (46-116); Anion Gap 8.8 mmol/L (3-11); BUN 20 mg/dL (7-18); Bilirubin, Total 0.5 mg/dL (0.2-1.0); CO2 27.2 mmol/L (21.0-32.0); CREATININE 0.9 mg/dL (0.55-1.02); Calcium 9.2 mg/dL (8.5-10.1); Calculated LDL 115 mg/dL (<100); Chloride 104 mmol/L (98-107); Cholesterol 198 mg/dL (<200); Estimated GFR 64.63 (mL/min/1.73m2); Glucose 113 mg/dL (74-106); HDL Cholesterol 66 mg/dL (40-60); Sodium 140 mmol/L (136-145); Total Protein 7.2 g/dL (6.4-8.2); Triglyceride 87 mg/dL (<150)
[2022-10-30 09:07] LABS: Lab Add On Test DONE
[2022-10-30 09:20] LABS: Hemoglobin A1C 5.7 % (<5.7)
[2022-11-01 10:29] LABS: Chromogranin A 32 ng/mL (<93)
== END 2022-10-29 02:17 | disposition home or self-care (01) ==
LOC: LBO 02:16
PROVIDERS: PCP Family Medicine; Visit Provider Family Medicine
DX: C7A.012 Malignant carcinoid tumor of the ileum (principal); E78.5 Hyperlipidemia, unspecified; R73.9 Hyperglycemia, unspecified
CPT/HCPCS: 36415; 80053; 80061; 83036; 85025; 86316

== ENCOUNTER 2022-11-26 01:50 | Outpatient (CLI) | payer MEDICARE, OTHER, SELFPAY ==
[2022-11-26 13:46] LABS: Abs Immature Grans 0.01 10^3/uL (0.0-0.06); Absolute Basophil Count 0.03 10^3/uL (0.0-0.2); Absolute Eosinophil Count 0.12 10^3/uL (0.0-0.7); Absolute Lymphocyte Count 2.07 10^3/uL (1.2-3.4); Absolute Monocyte Count 0.41 10^3/uL (0.1-0.8); Absolute Neutrophil Count 3.16 10^3/uL (1.2-6.7); Basophils % 0.5; Eosinophils % 2.1; HCT 39.2 % (36.0-46.0); HGB 13.3 g/dL (11.2-15.7); Immature Grans % 0.2; Lymphocytes % 35.7; MCH 32.4 pg (27.0-33.0); MCHC 33.9 % (32.0-36.0); MCV 96 fL (80-95); MPV 10.7 fL (8.0-11.0); Monocytes % 7.1; Neutrophils % 54.4; Platelet Count 244 10^3/uL (130-400); RDW 13.2 % (11.7-14.6); RDW-SD 46.5 fL
[2022-11-26 14:19] LABS: ALT 36 U/L (14-59); AST 25 U/L (15-37); Albumin 3.8 g/dL (3.4-5.0); Alkaline Phosphatase 100 U/L (46-116); BUN 21 mg/dL (7-18); Bilirubin, Total 0.4 mg/dL (0.2-1.0); CREATININE 0.8 mg/dL (0.55-1.02); Calcium 9.1 mg/dL (8.5-10.1); Chloride 106 mmol/L (98-107); Estimated GFR 74.44 (mL/min/1.73m2); Glucose 120 mg/dL (74-106); Potassium 4.2 mmol/L (3.5-5.1); Sodium 139 mmol/L (136-145); Total Protein 7.2 g/dL (6.4-8.2)
[2022-11-29 09:58] LABS: Chromogranin A 42 ng/mL (<93)
== END 2022-11-26 01:51 | disposition home or self-care (01) ==
PROVIDERS: Internal Medicine Medical Oncology; PCP Family Medicine; Visit Provider Internal Medicine Hematology & Oncology
DX: C7A.019 Malignant carcinoid tumor of the small intestine, unspecified portion (principal)
CPT/HCPCS: 36415; 80053; 85025; 86316

== ENCOUNTER 2022-12-24 09:07 | Outpatient (CLI) | payer MEDICARE, OTHER, SELFPAY ==
[2022-12-24 13:21] LABS: Abs Immature Grans 0.02 10^3/uL (0.0-0.06); Absolute Basophil Count 0.03 10^3/uL (0.0-0.2); Absolute Eosinophil Count 0.09 10^3/uL (0.0-0.7); Absolute Lymphocyte Count 1.69 10^3/uL (1.2-3.4); Absolute Monocyte Count 0.33 10^3/uL (0.1-0.8); Absolute Neutrophil Count 2.92 10^3/uL (1.2-6.7); Basophils % 0.6; Eosinophils % 1.8; HCT 38.6 % (36.0-46.0); HGB 13.2 g/dL (11.2-15.7); Immature Grans % 0.4; Lymphocytes % 33.3; MCH 32.5 pg (27.0-33.0); MCHC 34.2 % (32.0-36.0); MCV 95 fL (80-95); MPV 10.4 fL (8.0-11.0); Monocytes % 6.5; Neutrophils % 57.4; Platelet Count 246 10^3/uL (130-400); RBC 4.06 10^6/uL (3.93-5.22); RDW 13.7 % (11.7-14.6); RDW-SD 48.7 fL; WBC 5.08 10^3/uL (4.4-10.8)
[2022-12-24 13:35] LABS: ALT 36 U/L (14-59); AST 21 U/L (15-37); Albumin 3.9 g/dL (3.4-5.0); Alkaline Phosphatase 103 U/L (46-116); Anion Gap 8.7 mmol/L (3-11); BUN 17 mg/dL (7-18); Bilirubin, Total 0.4 mg/dL (0.2-1.0); CO2 27.3 mmol/L (21.0-32.0); CREATININE 0.7 mg/dL (0.55-1.02); Calcium 9.6 mg/dL (8.5-10.1); Chloride 105 mmol/L (98-107); Estimated GFR 87.37 (mL/min/1.73m2); Glucose 127 mg/dL (74-106); Potassium 3.7 mmol/L (3.5-5.1); Sodium 141 mmol/L (136-145); Total Protein 7.3 g/dL (6.4-8.2)
[2022-12-28 14:21] LABS: Chromogranin A 37 ng/mL (<93)
== END 2022-12-24 09:08 | disposition home or self-care (01) ==
LOC: LBO 09:08
PROVIDERS: PCP Family Medicine; Visit Provider Internal Medicine Hematology & Oncology
DX: C7A.012 Malignant carcinoid tumor of the ileum (principal)
CPT/HCPCS: 36415; 80053; 85025; 86316

== ENCOUNTER 2023-01-21 03:28 | Outpatient (CLI) | payer MEDICARE, OTHER, SELFPAY ==
[2023-01-21 08:23] LABS: Abs Immature Grans 0.01 10^3/uL (0.0-0.06); Absolute Basophil Count 0.03 10^3/uL (0.0-0.2); Absolute Eosinophil Count 0.13 10^3/uL (0.0-0.7); Absolute Lymphocyte Count 1.82 10^3/uL (1.2-3.4); Absolute Monocyte Count 0.45 10^3/uL (0.1-0.8); Absolute Neutrophil Count 1.85 10^3/uL (1.2-6.7); Basophils % 0.7; HCT 38.4 % (36.0-46.0); HGB 12.7 g/dL (11.2-15.7); Immature Grans % 0.2; Lymphocytes % 42.4; MCH 32.1 pg (27.0-33.0); MCHC 33.1 % (32.0-36.0); MCV 97 fL (80-95); MPV 10.8 fL (8.0-11.0); Monocytes % 10.5; Neutrophils % 43.2; Platelet Count 232 10^3/uL (130-400); RBC 3.96 10^6/uL (3.93-5.22); RDW 13.6 % (11.7-14.6); RDW-SD 48.7 fL; WBC 4.29 10^3/uL (4.4-10.8)
[2023-01-21 08:40] LABS: ALT 29 U/L (14-59); AST 17 U/L (15-37); Albumin 3.5 g/dL (3.4-5.0); Alkaline Phosphatase 106 U/L (46-116); Anion Gap 6.8 mmol/L (3-11); BUN 22 mg/dL (7-18); Bilirubin, Total 0.4 mg/dL (0.2-1.0); CO2 28.2 mmol/L (21.0-32.0); CREATININE 0.7 mg/dL (0.55-1.02); Calcium 9.4 mg/dL (8.5-10.1); Chloride 102 mmol/L (98-107); Estimated GFR 87.37 (mL/min/1.73m2); Glucose 113 mg/dL (74-106); Potassium 3.9 mmol/L (3.5-5.1); Sodium 137 mmol/L (136-145); Total Protein 7.2 g/dL (6.4-8.2)
[2023-01-24 12:11] LABS: Chromogranin A 43 ng/mL (<93)
== END 2023-01-21 03:29 | disposition home or self-care (01) ==
LOC: LBO 03:28
PROVIDERS: PCP Family Medicine; Visit Provider Internal Medicine Hematology & Oncology
DX: C7A.019 Malignant carcinoid tumor of the small intestine, unspecified portion (principal)
CPT/HCPCS: 36415; 80053; 85025; 86316

== ENCOUNTER 2023-02-18 01:50 | Outpatient (CLI) | payer MEDICARE, OTHER, SELFPAY ==
[2023-02-18 13:14] LABS: Abs Immature Grans 0.01 10^3/uL (0.0-0.06); Absolute Basophil Count 0.03 10^3/uL (0.0-0.2); Absolute Eosinophil Count 0.11 10^3/uL (0.0-0.7); Absolute Lymphocyte Count 1.68 10^3/uL (1.2-3.4); Absolute Monocyte Count 0.38 10^3/uL (0.1-0.8); Absolute Neutrophil Count 2.45 10^3/uL (1.2-6.7); Basophils % 0.6; Eosinophils % 2.4; HCT 38.6 % (36.0-46.0); HGB 12.7 g/dL (11.2-15.7); Immature Grans % 0.2; Lymphocytes % 36.1; MCH 32.1 pg (27.0-33.0); MCHC 32.9 % (32.0-36.0); MCV 98 fL (80-95); MPV 10.5 fL (8.0-11.0); Monocytes % 8.2; Neutrophils % 52.5; Platelet Count 247 10^3/uL (130-400); RBC 3.96 10^6/uL (3.93-5.22); RDW 13.2 % (11.7-14.6); RDW-SD 47.6 fL; WBC 4.66 10^3/uL (4.4-10.8)
[2023-02-18 13:28] LABS: ALT 35 U/L (14-59); AST 13 U/L (15-37); Albumin 3.7 g/dL (3.4-5.0); Alkaline Phosphatase 103 U/L (46-116); Anion Gap 7.1 mmol/L (3-11); BUN 20 mg/dL (7-18); Bilirubin, Total 0.3 mg/dL (0.2-1.0); CO2 26.9 mmol/L (21.0-32.0); CREATININE 0.7 mg/dL (0.55-1.02); Calcium 9.4 mg/dL (8.5-10.1); Chloride 103 mmol/L (98-107); Estimated GFR 87.37 (mL/min/1.73m2); Glucose 110 mg/dL (74-106); Potassium 4.1 mmol/L (3.5-5.1); Sodium 137 mmol/L (136-145); Total Protein 7.1 g/dL (6.4-8.2)
[2023-02-21 13:37] LABS: Chromogranin A 35 ng/mL (<93)
== END 2023-02-18 01:51 | disposition home or self-care (01) ==
LOC: LBO 01:50
PROVIDERS: PCP Family Medicine; Visit Provider Internal Medicine Hematology & Oncology
DX: C7A.019 Malignant carcinoid tumor of the small intestine, unspecified portion (principal)
CPT/HCPCS: 36415; 80053; 85025; 86316

== ENCOUNTER 2023-03-18 14:23 | Outpatient (CLI) | payer MEDICARE, OTHER, SELFPAY ==
[2023-03-18 14:20] LABS: Abs Immature Grans 0.01 10^3/uL (0.0-0.06); Absolute Basophil Count 0.05 10^3/uL (0.0-0.2); Absolute Eosinophil Count 0.18 10^3/uL (0.0-0.7); Absolute Lymphocyte Count 1.51 10^3/uL (1.2-3.4); Absolute Monocyte Count 0.32 10^3/uL (0.1-0.8); Absolute Neutrophil Count 3.44 10^3/uL (1.2-6.7); Basophils % 0.9; Eosinophils % 3.3; HCT 39.7 % (36.0-46.0); HGB 13.4 g/dL (11.2-15.7); Immature Grans % 0.2; Lymphocytes % 27.4; MCH 32.4 pg (27.0-33.0); MCHC 33.8 % (32.0-36.0); MCV 96 fL (80-95); MPV 10.8 fL (8.0-11.0); Monocytes % 5.8; Neutrophils % 62.4; Platelet Count 265 10^3/uL (130-400); RBC 4.14 10^6/uL (3.93-5.22); RDW 13.1 % (11.7-14.6); RDW-SD 46.6 fL; WBC 5.51 10^3/uL (4.4-10.8)
[2023-03-18 14:36] LABS: ALT 35 U/L (14-59); AST 22 U/L (15-37); Albumin 3.6 g/dL (3.4-5.0); Alkaline Phosphatase 117 U/L (46-116); Anion Gap 5.2 mmol/L (3-11); BUN 16 mg/dL (7-18); Bilirubin, Total 0.2 mg/dL (0.2-1.0); CO2 28.8 mmol/L (21.0-32.0); CREATININE 0.8 mg/dL (0.55-1.02); Calcium 9.5 mg/dL (8.5-10.1); Chloride 106 mmol/L (98-107); Estimated GFR 74.44 (mL/min/1.73m2); Glucose 134 mg/dL (74-106); Potassium 3.6 mmol/L (3.5-5.1); Sodium 140 mmol/L (136-145); Total Protein 7.4 g/dL (6.4-8.2)
[2023-03-21 21:09] LABS: Chromogranin A 49 ng/mL (<93)
== END 2023-03-18 14:24 | disposition home or self-care (01) ==
LOC: LBO 14:23
PROVIDERS: PCP Family Medicine; Visit Provider Nurse Practitioner Family
DX: C7B.8 Other secondary neuroendocrine tumors (principal)
CPT/HCPCS: 36415; 80053; 85025; 86316

== ENCOUNTER 2023-04-15 01:47 | Outpatient (CLI) | payer MEDICARE, OTHER, SELFPAY ==
[2023-04-15 12:51] LABS: Abs Immature Grans 0.01 10^3/uL (0.0-0.06); Absolute Basophil Count 0.03 10^3/uL (0.0-0.2); Absolute Lymphocyte Count 1.73 10^3/uL (1.2-3.4); Absolute Monocyte Count 0.48 10^3/uL (0.1-0.8); Absolute Neutrophil Count 3.52 10^3/uL (1.2-6.7); Basophils % 0.5; Eosinophils % 3.4; HCT 38.7 % (36.0-46.0); Immature Grans % 0.2; MCH 31.8 pg (27.0-33.0); MCHC 33.6 % (32.0-36.0); MCV 95 fL (80-95); MPV 10.6 fL (8.0-11.0); Neutrophils % 58.9; Platelet Count 250 10^3/uL (130-400); RBC 4.09 10^6/uL (3.93-5.22); RDW 13.5 % (11.7-14.6); WBC 5.97 10^3/uL (4.4-10.8)
[2023-04-15 13:08] LABS: ALT 41 U/L (14-59); AST 28 U/L (15-37); Albumin 3.6 g/dL (3.4-5.0); Alkaline Phosphatase 119 U/L (46-116); Anion Gap 7.4 mmol/L (3-11); BUN 21 mg/dL (7-18); Bilirubin, Total 0.5 mg/dL (0.2-1.0); CO2 25.6 mmol/L (21.0-32.0); CREATININE 0.6 mg/dL (0.55-1.02); Calcium 9.3 mg/dL (8.5-10.1); Chloride 105 mmol/L (98-107); Estimated GFR 90.68 (mL/min/1.73m2); Glucose 105 mg/dL (74-106); Potassium 3.6 mmol/L (3.5-5.1); Sodium 138 mmol/L (136-145); Total Protein 7.3 g/dL (6.4-8.2)
[2023-04-27 22:22] LABS: Chromogranin A 33 ng/mL (<93)
== END 2023-04-15 01:48 | disposition home or self-care (01) ==
PROVIDERS: PCP Family Medicine; Visit Provider Nurse Practitioner Family
DX: C7B.8 Other secondary neuroendocrine tumors (principal)
CPT/HCPCS: 36415; 80053; 85025; 86316

== ENCOUNTER 2023-04-24 10:54 | Emergency (ER) | payer MEDICARE, OTHER, SELFPAY ==
[2023-04-24] VITALS (7 sets, daily range): BP systolic 153–189; BP diastolic 70–122; PULSE 53–61; RESP 18; TEMP 36.3–36.5; O2SAT 96–98
--- NOTE | 2023-04-24 11:11 | W.ED.GENAD ---
HPI General Stated Complaint: Abd Prob HANNAH: 3 Date/Time Provider Initiated Documentation: 04/24/23 10:59. HPI Narrative: 82 year-old female presents to ED today by POV/ambulating with a chief complaint of abdominal pain, constipation, passing less gas than normal, history of SBO with onset of last significant BM two days ago- has been doing liquid diet and tried fleet enemas without results. Quality described as generalized abdominal distention & cramping pain, no radiation to fever, nausea/vomiting, LLQ abd pain, coffee-ground emesis, indigestion, shortness of breath, chest pain. Severity is described as 8/10. Palliating factors include fleet enema x3 without relief. Provoking factors include nothing specific. Patient not anticoagulated. Related Data Home Medications Medication Instructions Recorded Confirmed acetaminophen 650 mg 1,300 mg PO BID PRN 02/27/13 04/24/23 tablet,extended release (Tylenol Arthritis Pain) cholecalciferol (vitamin D3) 25 1,000 unit PO DAILY 02/27/13 04/24/23 mcg (1,000 unit) tablet Cpap 03/19/14 10/27/21 cod liver oil (bulk) 100 % 1 tsp PO DAILY 05/07/14 04/24/23 cetirizine 10 mg tablet (Zyrtec) 10 mg PO DAILY 10/17/19 04/24/23 lidocaine 5 % topical patch 1 patch topical DAILY #15 ea 07/14/20 04/24/23 (Lidoderm) octreotide,microspheres 10 mg 20 mg IM Q4W 10/21/20 04/24/23 intramuscular susp, extended release omeprazole 20 mg capsule,delayed 10 mg PO DAILY PRN 10/21/20 04/24/23 release valacyclovir 1 gram tablet 1,000 mg PO BID PRN 10/21/20 04/24/23 lidocaine-prilocaine 2.5 %-2.5 % 1 applic topical ONCE PRN 02/04/22 04/24/23 topical cream phlebotomy #5 grams paroxetine HCl 20 mg tablet 10 mg (1/2 x 20 mg) PO DAILY #45 09/29/22 04/24/23 tab-caps clonazepam 0.5 mg tablet 0.5 mg PO hs prn #15 tab-caps 07/13/23 12/31/23 Previous Rx's Medication Instructions Recorded lidocaine 5 % topical patch 1 patch topical DAILY #15 ea 07/14/20 (Lidoderm) lidocaine-prilocaine 2.5 %-2.5 % 1 applic topical ONCE PRN 02/04/22 topical cream phlebotomy #5 grams paroxetine HCl 20 mg tablet 10 mg (1/2 x 20 mg) PO DAILY #45 09/29/22 tab-caps clonazepam 0.5 mg tablet 0.5 mg PO hs prn #15 tab-caps 11/04/22 Allergies Allergy/AdvReac Type Severity Reaction Status Date / Time citalopram AdvReac Severe ANXIETY Verified 04/24/23 21:28 ATTACKS venlafaxine AdvReac Unknown increased Verified 04/24/23 21:28 anxiety Review of Systems All systems reviewed & are unremarkable except as noted in HPI and below PFSH All Active Problems Constipation (Acute) Constipation (Acute) Hyperglycemia (Acute) Screening for viral disease (Acute) Onychogryphosis (Acute) Thoracic back pain (Acute) Tumor (Acute ~05/01/19) [facility] Neuro endocrine tumor s/p resection-kb LPRD (laryngopharyngeal reflux disease) (Acute) Dr. 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 ([facility] [place]) Bilateral mastectomy 06/03 Depressive disorder (Acute) anxiety Intestinal obstruction (Acute 05/05/12) 2011 small bowel obstruction (in [place] while visiting daughter) Gastro-esophageal reflux disease without esophagitis (Acute) FLOR (obstructive sleep apnea) (Chronic) Abnormal auditory perception (Acute) Phlegm in throat (Acute) blood likely from irritation doubt neoplasm Chest pain (Acute) Fatigue (Acute 03/28/12) Onychomycosis (Acute 03/03/12) Palpitations (Acute) Restless legs syndrome (Acute 03/24/07) Status post bilateral mastectomy (Acute) Hip pain, right (Chronic) Abdominal mass (Acute 04/03/13) f/u CT scan [facility] [place] 05/30/13, 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 Arthritis (Acute) back and hands Intermittent abdominal pain (Acute 05/09/15) Knee pain, bilateral (Acute 05/09/15) Low back pain (Chronic 03/16/11) Osteopenia (Acute 08/16/17) Polyp of colon (Acute 06/24/11) [facility] [place] 06/22/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 (brother with colon cancer) Sleep apnea (Acute) C PAP Trigeminy (Acute 04/02/16) ZIOPATCH 04/02/16 Urinary frequency (Acute) Surgical History History of total right hip arthroplasty (~11/20/19) [facility] [place] S/P small bowel resection (~05/01/19) 05/01/19 [facility] (04/02/16) Breast, Mastectomy Bilateral (~05/2008) Family History Mother , AGE 77 Diabetes Essential hypertension Heart disease Hyperlipidemia Stroke Father , AGE 72 Heart disease Asthma Sister , AGE 72 Diabetes Lung cancer Brother , AGE 62 Diabetes Essential hypertension Hyperlipidemia Colon cancer Brother Heart disease Prostate cancer Brother Heart disease Myocardial infarction Son No problems noted. Son No problems noted. Daughter No problems noted. Sister No problems noted. Sister No problems noted. Maternal Grandfather , AGE 62 No problems noted. Paternal Grandfather , AGE 77 No problems noted. Maternal Grandmother No problems noted. Paternal Grandmother , AGE 65 No problems noted. Social History Smoking/Tobacco Use Status: Never Second Hand Exposure: Yes Smoking risk assessment performed?: Yes Alcohol Intake: current Alcohol Intake frequency: a few times a month Drug use: Never Substance use type: does not use Caregiver/Support person: No Household members: none Housing: house Communication Needs: None Do you need help understanding health information?: Rarely Pets and animals: No Do you think of yourself as: straight/heterosexual Current gender identity: female What is your relationship status?: How often do you talk on the phone with friends or family?: three or more times per week How often do you get together with friends or relatives?: twice per week Do you belong to any clubs or organized social groups?: no Panel score (0-1 are the most socially isolated patients): 1 What type of physical activity do you participate in: walking and other Details: Yard work,House work Duration: 30-45 minutes/day Frequency: 5-6 times per week Marleen/Mandaen: Christian Special marleen needs: No Seatbelt use: always Helmet use: No Drive intox or ride w/intox sweeper driver: No Do you feel safe at home: Yes Do you feel safe in your relationship?: Yes Exam Narrative Exam Narrative: GENERAL APPEARANCE: Well-nourished, non-toxic, awake and alert, atraumatic, no acute distress. SKIN: Warm, pink, dry, intact, without rashes/lesions/ulcerations. HEAD: Normocephalic, atraumatic, normal hair distribution for gender/age. EYES: Pupils PERRLA, EOMs intact without nystagmus, normal conjunctiva, no exudates on lids/lashes. ENT: Nares patent, no circumoral cyanosis, no facial swelling NECK: Supple, trachea midline, painless cervical ROM. LUNGS/CHEST: Lungs CTA bilaterally- no rhonchi/rales/wheezes diffusely, non-labored respirations, normal A/P diameter, symmetrical expansion, no chest wall deformity HEART (CV/PV): Regular rate and rhythm without murmur, no peripheral edema, no JVD. ABDOMEN: Hyperative bowel sounds, soft, distended, no guarding, diffuse tenderness, most focal R oblique area, negative Rosenbaum's sign, no McBurney's point-tenderness, no focal LLQ tenderness, no CVA tenderness to percussion bilaterally. MSK: Normal ROM, no swelling/deformity to bilateral UEs or LEs, moving all extremities without weakness, no cyanosis, spine midline without tenderness, normal curvature. NEURO: Mental Status AAOx4 - alert to person, place, time, events No facial droop, no forehead involvement. Motor: No focal weakness - strength 5/5 in bilateral UEs and LEs, proximal and distal, symmetric. Sensory: sensation intact to light touch globally. Gait normal: patient ambulated without ataxia into ED room. PSYCH: euthymic, cooperative, pleasant, appropriate speech Course 04/24/23 11:24 CT abdomen & pelvis w [CT] Stat Normal Saline [Saline 1000ml Bag] 1,000 ml IV BOLUS 04/24/23 11:30 Cardiac Troponin I Stat Comprehensive Metabolic Panel Stat Lipase Stat Liver Panel Stat Magnesium Stat Complete Blood Count w/Diff [HEMO] Stat 04/24/23 12:35 Urinalysis [URIN] Stat 04/24/23 12:37 Normal Saline Flush [Saline Flush 10 ml Syringe] See Dose Instructions IVP PRN PRN 04/24/23 12:45 Iohexol [Omnipaque 350] 100 ml IJ DIRECTED Normal Saline - Diluent [Saline 50 ml diluent vial] 50 ml IJ .FOR DI USE Vital Signs Vital signs: Vital Signs Temperature 36.3 C L 04/24/23 11:06 Pulse 61 04/24/23 11:06 Respiratory Rate 18 04/24/23 11:06 Blood Pressure 153/85 H 04/24/23 11:06 Pulse Oximetry 97 04/24/23 11:06 Temperature 36.3 C L 04/24/23 11:06 Temperature Source Temporal Artery Scan 04/24/23 11:06 Pulse 61 04/24/23 11:06 Respiratory Rate 18 04/24/23 11:06 Blood Pressure 153/85 H 04/24/23 11:06 Blood Pressure Position Sitting 04/24/23 11:06 Pulse Oximetry 97 04/24/23 11:06 Oxygen Delivery Method Room Air 04/24/23 11:06 Oxygen Flow Rate 0 04/24/23 11:06 Pain Level 5 04/24/23 11:06 Medical Decision Making This dictation utilizes [id number] dictation software and may contain unedited grammatical errors. 82 y/o F presents to ED today with a chief complaint of concern for SBO, has been constipated since Reilly (day 2), less flatus than usual. Reports diffuse cramping, denies nausea/vomiting, flank pain, fever, endorses history of SBO, attempted fleet enema at home x3 without results. Patients' medical history: SBO in remote past, required surgery. BRCA, hyperglycemia without t2DM, chest pain. Family and social history: noncontributory, lives independently, eats healthy. Pertinent exam findings / vital signs include diffuse ABD tenderness without peritoneal signs, nontoxic vitals, benign cardiopulmonary status. Differential / pathologies of concern include SBO, colitis, IBD, IBS, Diverticulitis, Constipation, Obstipation, NOT Peritonitis. Diagnostic studies of: -CBC, CMP, Lipase, CRP/ESR, UA, Trop I for atypical epigastric presentation of ACS CT ABD/Pelvis w Contrast. -CBC no leukocytosis -CRP/ESR benign -Lipase neg -UA benign -Trop I negative with reliable onset -CT ABD/Pelvis shows no obstruction, stool burden present Interventions of: -Provided magnesium citrate to go, advises stool softeners followed by magnesium citrate to relief of BM. ED Course/Assessment/Plan: Otherwise well-appearing 82-year-old female presents with diffuse abdominal distention and constipation for the past 2 days with a history of a surgical SBO so she has high concern for this happening again. There is no evidence of SBO on her CT scan, laboratory workup is benign she does have mild elevation of LFTs just above normal limit but no other acute suspicion for biliary pathology based on imaging, no leukocytosis, lipase is negative, inflammatory markers are benign. I counseled the patient on using stool softeners, waiting for them to have some time to take effect and then following it with provided magnesium citrate to bowel movement. I stressed strict return criteria if no bowel movement by the next day or severe increase in abdominal pain but that some abdominal cramping will be normal after taking magnesium citrate, recommend return criteria for any intractable nausea or vomiting especially emesis of coffee-ground material. Findings not consistent with SBO, diverticulitis, biliary tree pathology, perforated viscus, sepsis. Disposition of constipation. Patient verbalized understanding of the plan and return to ED criteria and engaged in shared decision making. Medical Records Medical records reviewed: Yes I reviewed the patient's medical records. Imaging Data Radiologic Study: Imaging: CT Scan Radiologist's impression: Exam: CT Abdomen And Pelvis With Contrast Exam date and time: 04/24/2023 12:39 PM Age: 82 years old Clinical indication: Abdominal distention. Evaluate for small bowel obstruction, constipation since Tuesday TECHNIQUE: Imaging protocol: Computed tomography of the abdomen and pelvis with contrast. Radiation optimization: All CT scans at this facility use at least one of these dose optimization techniques: automated exposure control; mA and/or kV adjustment per patient size (includes targeted exams where dose is matched to clinical indication); or iterative reconstruction. Contrast material: OMNI 350; Contrast volume: 100 ml; Contrast route: INTRAVENOUS (IV); COMPARISON: CT ABDOMEN PELVIS W 01/26/2019 8:34 AM FINDINGS: Mild atelectasis or scarring in the right posterior lung base. No obvious acute abnormality of liver, spleen, pancreas, adrenal glands, or kidneys is identified. No hydronephrosis or ureteral calculi. There is a tiny cyst in the lower pole of the right kidney. Moderate aortic atherosclerosis without aneurysmal dilation. Images through the pelvis are degraded by artifact from right hip prosthesis. Uterine fibroids and adnexal varices are again evident; the varices appear less prominent than on 01/26/2019. Abundant stool noted throughout the ascending and transverse colon. Relatively mild stool throughout the descending and rectosigmoid colon without evidence of rectal fecal impaction. The bones are osteopenic. Chronic multilevel degenerative disc disease and facet DJD are present. Grade 1 anterolisthesis at L3-L4. Mild superior endplate compression deformity at T11 appears old but is new since 2019. IMPRESSION: 1. No evidence of bowel obstruction or rectal fecal impaction. 2. There are multiple incidental and/or nonacute findings; please see above report for details. Dictated and Authenticated by: Roge Andrews MD. Ordering:FRANCISCO Castillo MD Lab Data Lab results reviewed: Yes I reviewed the patient's lab results. Labs: Laboratory Tests Range/Units 04/24/23 04/24/23 11:30 12:35 WBC (4.4-10.8) 10^3/uL 3.43 L RBC (3.93-5.22) 10^6/uL 4.35 Hgb (11.2-15.7) g/dL 13.9 Hct (36.0-46.0) % 41.1 MCV (80-95) fL 95 MCH (27.0-33.0) pg 32.0 MCHC (32.0-36.0) % 33.8 RDW (11.7-14.6) % 13.8 Plt Count (130-400) 10^3/uL 255 MPV (8.0-11.0) fL 10.6 Immature Gran % 0.3 Neutrophils % 53.9 Lymphocytes % 34.1 Monocytes % 7.9 Eosinophils % 3.2 Basophils % 0.6 Nucleated RBC % (0.0-0.3) % 0.0 Absolute Neutrophils (1.2-6.7) 10^3/uL 1.85 Absolute Lymphocytes (1.2-3.4) 10^3/uL 1.17 L Absolute Monocytes (0.1-0.8) 10^3/uL 0.27 Absolute Eosinophils (0.0-0.7) 10^3/uL 0.11 Absolute Basophils (0.0-0.2) 10^3/uL 0.02 Sodium (136-145) mmol/L 142 Potassium (3.5-5.1) mmol/L 3.9 Chloride (98-107) mmol/L 105 Carbon Dioxide (21.0-32.0) mmol/L 28.4 Anion Gap (3-11) mmol/L 8.6 BUN (7-18) mg/dL 8 Creatinine (0.55-1.02) mg/dL 0.7 Est GFR (CKD-EPI 2020) (mL/min/1.73m2) 87.37 Glucose (74-106) mg/dL 127 H Calcium (8.5-10.1) mg/dL 9.6 Magnesium (1.8-2.4) mg/dL 1.9 Total Bilirubin (0.2-1.0) mg/dL 0.7 Conjugated Bilirubin (0.0-0.2) mg/dL 0.2 AST (15-37) U/L 63 H ALT (14-59) U/L 76 H Alkaline Phosphatase (46-116) U/L 122 H Troponin I (<or=60) ng/L < 50 Total Protein (6.4-8.2) g/dL 7.8 Albumin (3.4-5.0) g/dL 3.8 Lipase (16-77) U/L 22 Urine Color (Yellow) Yellow Urine Clarity (Clear) Clear Urine pH (5-8) 6.0 Ur Specific Tornado (1.005-1.025) 1.010 Urine Protein (Negative) mg/dL Negative Urine Ketones (Negative) mg/dL Negative Urine Blood (Negative) Negative Urine Nitrite (Negative) Negative Urine Bilirubin (Negative) Negative Urine Urobilinogen (Up to 0.2) mg/dL 0.2 Ur Leukocyte Esterase (Negative) Negative Urine Glucose (Negative) mg/dL Negative Discharge Plan Disposition Patient Disposition: Home Condition: Stable Discharge Details Clinical Impression: Constipation Primary Care Provider: Dallin Welch ED Provider: Jonathan Vinson Home Meds and New Rx's Prescriptions: Continued valacyclovir 1 gram tablet 1,000 mg PO BID PRN Patient Comments: 11/14/18 prn. si Rx Instructions: one pill BID for 2 days at onset of cold sore cetirizine [Zyrtec] 10 mg tablet 10 mg PO DAILY omeprazole 20 mg capsule,delayed release(DR/EC) 10 mg PO DAILY PRN octreotide,microspheres 10 mg suspension,extended rel recon 20 mg IM Q4W lidocaine [Lidoderm] 5 % adhesive patch,medicated 1 patch topical DAILY Qty: 15 0RF Rx Instructions: leave on most painful area for up to 12 hrs clonazepam 0.5 mg tablet 0.5 mg PO hs prn Qty: 15 0RF Rx Instructions: acetaminophen [Tylenol Arthritis Pain] 650 MG tablet extended release 1,300 mg PO BID PRN cholecalciferol (vitamin D3) 1,000 UNIT tablet 1,000 unit PO DAILY CPAP Rx Instructions: sleep apnea cod liver oil (bulk) 1 ML oil 1 tsp PO DAILY lidocaine-prilocaine 2.5-2.5 % cream 1 applic topical ONCE PRN (Reason: phlebotomy) Qty: 5 2RF paroxetine HCl 20 mg tablet 10 mg PO DAILY Qty: 45 3RF Discharge Instructions Instructions: Constipation (ED) Additional Instructions: You were seen in the emergency department for your constipation since Tuesday. Your CT shows no signs of obstruction or fecal impaction, does show large stool burden. Please take Dulcolax or other stool softener followed by the provided bottle of magnesium citrate today and hopefully this will relieve your constipation with significant bowel movements. If you are still experiencing complete constipation with this please return to the ER for reevaluation for possible obstruction at that time, there was no sign of even partial obstruction on her CT at today's imaging, your lab work is benign. Referrals: Dallin Welch MD [Primary Care Provider] - Discharge Data Discharge Date/Time-TO BE ENTERED AT DEPARTURE: 04/24/23 13:56
--- NOTE | 2023-04-24 11:15 | DI.CT_ITS ---
Exam(s) CT ABDOMEN PELVIS W EXAM: CT ABDOMEN PELVIS W CLINICAL HISTORY: ?SBO, distention, constipation since tuesday. TECHNIQUE: Imaging Protocol: Axial computed tomography images with coronal and sagittal reformatted images were created and reviewed CONTRAST MATERIAL: Intravenous: Omnipaque 350 Contrast volume:100 ml Oral: / no COMPARISON: CT CT ABDOMEN PELVIS W from 01/26/[address] CHEST WO from 11/19/2021 FINDINGS: ABDOMEN and PELVIS: Lung Bases: Right lower lobe scarring and atelectasis. Liver: Normal density. No measurable mass. Gallbladder and biliary tract: No radiodense calculus or dilation. Pancreas: Normal density. No abnormal calcifications or inflammatory process. No evidence of mass. Spleen: Normal. Kidneys: Normal size, contour and axis. No radiodense stones. No obstructive uropathy. No suspicious masses seen. Adrenal glands: No masses seen. Vasculature: Abdominal aorta non-dilated. Atherosclerotic changes with mural thrombus. Soft tissues: Unremarkable. Bladder: No gross wall thickening. No calculi.No focal mass. Bowel: Diverticulosis. Large quantity of stool from cecum through splenic flexure. Mild to moderate quantity of stool distal to this level. No obstruction. Small bowel anastomosis. No bowel wall th ickening. Appendix normal. Peritoneal cavity: No ascites. No focal collection or mesenteric inflammatory response. Bones: Right hip prosthesis. Degenerative changes in the lower thoracic and lumbar spine. Mild T11 compression fracture appears old however is new since prior chest CT. Reproductive organs: Mildly obscured by artifact. Anterior uterine fibroid noted. Lymph nodes: Small mesenteric lymph nodes. Largest node is 12 millimeters anterior to the left of th e aorta. Previously noted mesenteric mass with calcifications no longer present. IMPRESSION:: Large quantity of stool. Mildly enlarged mesenteric lymph node. Mesenteric mass on prior exam not present on today's study. RADIATION DOSE DELIVERED: Total DLP DATA REPOSITORY: All CT scans at this facility are submitted to the National Radiology Data Registry (NRDR) Dose Index Registry (DIR) with the [employer] (ACR). RADIATION OPTIMIZATION: All CT scans at this facility use at least one of these dose optimization te chniques: automated exposure control; mA and/or kV adjustment per patient size (includes targeted exa ms where dose is matched to clinical indication); or iterative reconstruction.
[2023-04-24] MEDS: Normal Saline 1,000 ML 1000 ML IV (11:37)
[2023-04-24 11:41] LABS: Abs Immature Grans 0.01 10^3/uL (0.0-0.06); Absolute Basophil Count 0.02 10^3/uL (0.0-0.2); Absolute Eosinophil Count 0.11 10^3/uL (0.0-0.7); Absolute Lymphocyte Count 1.17 10^3/uL (1.2-3.4); Absolute Monocyte Count 0.27 10^3/uL (0.1-0.8); Absolute Neutrophil Count 1.85 10^3/uL (1.2-6.7); Basophils % 0.6; Eosinophils % 3.2; HCT 41.1 % (36.0-46.0); HGB 13.9 g/dL (11.2-15.7); Immature Grans % 0.3; Lymphocytes % 34.1; MCHC 33.8 % (32.0-36.0); MCV 95 fL (80-95); MPV 10.6 fL (8.0-11.0); Monocytes % 7.9; Neutrophils % 53.9; Platelet Count 255 10^3/uL (130-400); RBC 4.35 10^6/uL (3.93-5.22); RDW 13.8 % (11.7-14.6); RDW-SD 48.2 fL; WBC 3.43 10^3/uL (4.4-10.8)
[2023-04-24 12:05] LABS: ALT 76 U/L (14-59); AST 63 U/L (15-37); Albumin 3.8 g/dL (3.4-5.0); Alkaline Phosphatase 122 U/L (46-116); Anion Gap 8.6 mmol/L (3-11); BUN 8 mg/dL (7-18); Bilirubin, Direct 0.2 mg/dL (0.0-0.2); Bilirubin, Total 0.7 mg/dL (0.2-1.0); CO2 28.4 mmol/L (21.0-32.0); CREATININE 0.7 mg/dL (0.55-1.02); Calcium 9.6 mg/dL (8.5-10.1); Chloride 105 mmol/L (98-107); Estimated GFR 87.37 (mL/min/1.73m2); Glucose 127 mg/dL (74-106); Lipase 22 U/L (16-77); Magnesium 1.9 mg/dL (1.8-2.4); Potassium 3.9 mmol/L (3.5-5.1); Sodium 142 mmol/L (136-145); Total Protein 7.8 g/dL (6.4-8.2); Troponin I < 50 ng/L (<or=60)
[2023-04-24] MEDS: Normal Saline - Diluent 50 ML VIAL IJ (12:36)
[2023-04-24] MEDS: Normal Saline Flush 10 ML SYR IVP (12:37)
[2023-04-24] MEDS: Omnipaque 350 MG/ML 100 ML BTL IJ (12:38)
[2023-04-24 12:53] LABS: Bilirubin Negative (Negative); Blood Negative (Negative); Clarity Clear (Clear); Glucose Negative (Negative); Ketones Negative (Negative); Leukocyte Esterase Negative (Negative); Nitrite Negative (Negative); Urobilinogen 0.2 mg/dL (Up to 0.2)
--- NOTE | 2023-04-24 13:12 | DI.VRAD_ITS ---
PROCEDURE INFORMATION: Exam: CT Abdomen And Pelvis With Contrast Exam date and time: 04/24/2023 12:39 PM Age: 82 years old Clinical indication: Abdominal distention. Evaluate for small bowel obstruction, constipation since Tuesday TECHNIQUE: Imaging protocol: Computed tomography of the abdomen and pelvis with contrast. Radiation optimization: All CT scans at this facility use at least one of these dose optimization techniques: automated exposure control; mA and/or kV adjustment per patient size (includes targeted exams where dose is matched to clinical indication); or iterative reconstruction. Contrast material: OMNI 350; Contrast volume: 100 ml; Contrast route: INTRAVENOUS (IV); COMPARISON: CT ABDOMEN PELVIS W 01/26/2019 8:34 AM FINDINGS: Mild atelectasis or scarring in the right posterior lung base. No obvious acute abnormality of liver, spleen, pancreas, adrenal glands, or kidneys is identified. No hydronephrosis or ureteral calculi. There is a tiny cyst in the lower pole of the right kidney. Moderate aortic atherosclerosis without aneurysmal dilation. Images through the pelvis are degraded by artifact from right hip prosthesis. Uterine fibroids and adnexal varices are again evident; the varices appear less prominent than on 01/26/2019. Abundant stool noted throughout the ascending and transverse colon. Relatively mild stool throughout the descending and rectosigmoid colon without evidence of rectal fecal impaction. The bones are osteopenic. Chronic multilevel degenerative disc disease and facet DJD are present. Grade 1 anterolisthesis at L3-L4. Mild superior endplate compression deformity at T11 appears old but is new since 2019. IMPRESSION: 1. No evidence of bowel obstruction or rectal fecal impaction. 2. There are multiple incidental and/or nonacute findings; please see above report for details. Dictated and Authenticated by: Roge Andrews MD. Ordering:FRANCISCO Castillo MD
[2023-04-24] MEDS: Magnesium Citrate 300 ML BTL PO (13:52)
== END 2023-04-24 13:56 | disposition home or self-care (01) ==
PROVIDERS: Emergency Provider Physician Assistant; PCP Family Medicine
DX: K59.00 Constipation, unspecified (principal); R10.9 Unspecified abdominal pain
CPT/HCPCS: 36415; 80053; 80076; 83690; 96360; 99285; 74177; 81003; 83735; 84484; 85025; 99283; J3490

== ENCOUNTER 2023-04-24 21:08 | Emergency (ER) | payer MEDICARE, OTHER, SELFPAY ==
[2023-04-24 21:32] VITALS: BP 191/86; PULSE 65; RESP 16; TEMP 36.8; O2SAT 95
[2023-04-24 21:36] VITALS: PULSE 62; RESP 16; TEMP 36.8; O2SAT 95
--- NOTE | 2023-04-24 21:41 | W.ED.GENAD ---
Discharge Plan Disposition Patient Disposition: Home Condition: Good Discharge Details Clinical Impression: Constipation Primary Care Provider: Dallin Welch ED Provider: Jonathan Quinonez Home Meds and New Rx's Prescriptions: No Action valacyclovir 1 gram tablet 1,000 mg PO BID PRN Patient Comments: 11/14/18 prn. si Rx Instructions: one pill BID for 2 days at onset of cold sore cetirizine [Zyrtec] 10 mg tablet 10 mg PO DAILY omeprazole 20 mg capsule,delayed release(DR/EC) 10 mg PO DAILY PRN octreotide,microspheres 10 mg suspension,extended rel recon 20 mg IM Q4W lidocaine [Lidoderm] 5 % adhesive patch,medicated 1 patch topical DAILY Qty: 15 0RF Rx Instructions: leave on most painful area for up to 12 hrs clonazepam 0.5 mg tablet 0.5 mg PO hs prn Qty: 15 0RF Rx Instructions: acetaminophen [Tylenol Arthritis Pain] 650 MG tablet extended release 1,300 mg PO BID PRN cholecalciferol (vitamin D3) 1,000 UNIT tablet 1,000 unit PO DAILY CPAP Rx Instructions: sleep apnea cod liver oil (bulk) 1 ML oil 1 tsp PO DAILY lidocaine-prilocaine 2.5-2.5 % cream 1 applic topical ONCE PRN (Reason: phlebotomy) Qty: 5 2RF paroxetine HCl 20 mg tablet 10 mg PO DAILY Qty: 45 3RF Discharge Instructions Instructions: Constipation (ED) Additional Instructions: Please continue to drink fluids throughout the night. You likely have multiple more bowel movements throughout the night. If you notice any worsening of your symptoms, or any new symptoms such as vomiting, diarrhea, fever, chills, shortness of breath, chest pain, numbness, weakness, or fainting , please return immediately to the emergency department for reevaluation. Please follow up with your primary care provider as soon as possible for reassessment and reevaluation. As always, it was a pleasure participating in your medical care today. Referrals: Dallin Welch MD [Primary Care Provider] - Discharge Data Discharge Date/Time-TO BE ENTERED AT DEPARTURE: 04/24/23 21:53 Medical Decision Making 82-year-old female presents today for constipation. She was seen earlier today and assessed with an appropriate workup, CT scan showed evidence of stool burden. She was given mag citrate to go home with, and discharge. Patient took the mag citrate and extra water at home but still did not have a bowel movement. She only waited an hour or so. Patient was then brought back for reassessment. Upon arrival to the emergency department room though she did have to go poop and then went and had a bowel movement. Patient states that she feels much better after this bowel movement that she had just moments ago. No other complaints. Exam demonstrates well-appearing female. Rectal exam demonstrates no hard stool ball or hard stool. Soft stool is noted. Patient has no pain or tenderness on abdominal exam. She feels well and would like to go home as she just had a bowel movement and the reason that she came in was because she had not had a bowel movement. No need for repeat imaging or labs. Patient will be discharged. Recommend continued fluids at home. Discussed red flags which to return. I have extensively reviewed the treatment plan and discharge instructions with the patient. I have addressed all patient concerns at this time. The patient was made aware of what symptoms to monitor for that would warrant a return to the emergency department. Discussed the plan with the patient, they demonstrate verbal understanding and agreement with our assessment and plan at this time. The documentation in this chart was dictated using DriftToIt dictation software. Please excuse any dictation errors. HPI General Date/Time Provider Initiated Documentation: 04/24/23 21:41. HPI Narrative: 82-year-old female presents today for constipation. She was seen earlier today and assessed with an appropriate workup, CT scan showed evidence of stool burden. She was given mag citrate to go home with, and discharge. Patient took the mag citrate and extra water at home but still did not have a bowel movement. She only waited an hour or so. Patient was then brought back for reassessment. Upon arrival to the emergency department room though she did have to go poop and then went and had a bowel movement. Patient states that she feels much better after this bowel movement that she had just moments ago. No other complaints. Related Data Home Medications Medication Instructions Recorded Confirmed acetaminophen 650 mg 1,300 mg PO BID PRN 02/27/13 04/24/23 tablet,extended release (Tylenol Arthritis Pain) cholecalciferol (vitamin D3) 25 1,000 unit PO DAILY 02/27/13 04/24/23 mcg (1,000 unit) tablet Cpap 03/19/14 10/27/21 cod liver oil (bulk) 100 % 1 tsp PO DAILY 05/07/14 04/24/23 cetirizine 10 mg tablet (Zyrtec) 10 mg PO DAILY 10/17/19 04/24/23 lidocaine 5 % topical patch 1 patch topical DAILY #15 ea 07/14/20 04/24/23 (Lidoderm) octreotide,microspheres 10 mg 20 mg IM Q4W 10/21/20 04/24/23 intramuscular susp, extended release omeprazole 20 mg capsule,delayed 10 mg PO DAILY PRN 10/21/20 04/24/23 release valacyclovir 1 gram tablet 1,000 mg PO BID PRN 10/21/20 04/24/23 lidocaine-prilocaine 2.5 %-2.5 % 1 applic topical ONCE PRN 02/04/22 04/24/23 topical cream phlebotomy #5 grams paroxetine HCl 20 mg tablet 10 mg (1/2 x 20 mg) PO DAILY #45 09/29/22 04/24/23 tab-caps clonazepam 0.5 mg tablet 0.5 mg PO hs prn #15 tab-caps 11/04/22 04/24/23 Previous Rx's Medication Instructions Recorded lidocaine 5 % topical patch 1 patch topical DAILY #15 ea 07/14/20 (Lidoderm) lidocaine-prilocaine 2.5 %-2.5 % 1 applic topical ONCE PRN 02/04/22 topical cream phlebotomy #5 grams paroxetine HCl 20 mg tablet 10 mg (1/2 x 20 mg) PO DAILY #45 09/29/22 tab-caps clonazepam 0.5 mg tablet 0.5 mg PO hs prn #15 tab-caps 11/04/22 Allergies Allergy/AdvReac Type Severity Reaction Status Date / Time citalopram AdvReac Severe ANXIETY Verified 04/24/23 21:28 ATTACKS venlafaxine AdvReac Unknown increased Verified 04/24/23 21:28 anxiety General Stated Complaint: Abd Prob HANNAH: 3 Review of Systems All systems reviewed & are unremarkable except as noted in HPI and below PFSH All Active Problems Constipation (Acute) Constipation (Acute) Hyperglycemia (Acute) Screening for viral disease (Acute) Onychogryphosis (Acute) Thoracic back pain (Acute) Tumor (Acute ~05/01/19) [facility] Neuro endocrine tumor s/p resection-kb LPRD (laryngopharyngeal reflux disease) (Acute) Dr. 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 ([facility] [place]) Bilateral mastectomy 06/03 Depressive disorder (Acute) anxiety Intestinal obstruction (Acute 05/05/12) 2011 small bowel obstruction (in [place] while visiting daughter) Gastro-esophageal reflux disease without esophagitis (Acute) FLOR (obstructive sleep apnea) (Chronic) Abnormal auditory perception (Acute) Phlegm in throat (Acute) blood likely from irritation doubt neoplasm Chest pain (Acute) Fatigue (Acute 03/28/12) Onychomycosis (Acute 03/03/12) Palpitations (Acute) Restless legs syndrome (Acute 03/24/07) Status post bilateral mastectomy (Acute) Hip pain, right (Chronic) Abdominal mass (Acute 04/03/13) f/u CT scan [facility] [place] 05/30/13, 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 Arthritis (Acute) back and hands Intermittent abdominal pain (Acute 05/09/15) Knee pain, bilateral (Acute 05/09/15) Low back pain (Chronic 03/16/11) Osteopenia (Acute 08/16/17) Polyp of colon (Acute 06/24/11) [facility] [place] 06/22/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 (brother with colon cancer) Sleep apnea (Acute) C PAP Trigeminy (Acute 04/02/16) ZIOPATCH 04/02/16 Urinary frequency (Acute) Surgical History History of total right hip arthroplasty (~11/20/19) [facility] [place] S/P small bowel resection (~05/01/19) 05/01/19 [facility] Ziopatch (04/02/16) Breast, Mastectomy Bilateral (~05/2008) Family History Mother , AGE 77 Diabetes Essential hypertension Heart disease Hyperlipidemia Stroke Father , AGE 72 Heart disease Asthma Sister , AGE 72 Diabetes Lung cancer Brother , AGE 62 Diabetes Essential hypertension Hyperlipidemia Colon cancer Brother Heart disease Prostate cancer Brother Heart disease Myocardial infarction Son No problems noted. Son No problems noted. Daughter No problems noted. Sister No problems noted. Sister No problems noted. Maternal Grandfather , AGE 62 No problems noted. Paternal Grandfather , AGE 77 No problems noted. Maternal Grandmother No problems noted. Paternal Grandmother , AGE 65 No problems noted. Social History Smoking/Tobacco Use Status: Never Second Hand Exposure: Yes Smoking risk assessment performed?: Yes Alcohol Intake: current Alcohol Intake frequency: a few times a month Drug use: Never Substance use type: does not use Caregiver/Support person: No Household members: none Housing: house Communication Needs: None Do you need help understanding health information?: Rarely Pets and animals: No Do you think of yourself as: straight/heterosexual Current gender identity: female What is your relationship status?: How often do you talk on the phone with friends or family?: three or more times per week How often do you get together with friends or relatives?: twice per week Do you belong to any clubs or organized social groups?: no Panel score (0-1 are the most socially isolated patients): 1 What type of physical activity do you participate in: walking and other Details: Yard work,House work Duration: 30-45 minutes/day Frequency: 5-6 times per week Marleen/Baptist: Jainism Special marleen needs: No Seatbelt use: always Helmet use: No Drive intox or ride w/intox jukebox route driver: No Do you feel safe at home: Yes Do you feel safe in your relationship?: Yes Exam Narrative Exam Narrative: 1.Const: Well-nourished, Well-developed, appearing stated age 2.Eyes: PERRL, no conjunctival injection, and symmetrical lids. 3.ENT: Atraumatic external nose and ears. Moist MM. Neck: Symmetric, trachea midline, No thyromegaly. 4.CVS: +S1/S2, No murmurs or gallops. Peripheral pulses 2+ and equal in all extremities. Brisk capillary refill in all extremities. 5.RESP: Unlabored respiratory effort. Clear to auscultation bilaterally. No wheezes rales or rhonchi 6.GI: Soft, Nontender/Nondistended, No hepatosplenomegaly. No guarding or rebound. Rectal exam was performed with female nurse at bedside. No evidence of hard stool balls in the rectal vault. Soft stool was present. No tenderness or mass 7.MSK: Normocephalic/Atraumatic, Extremities w/o deformity or ttp No cyanosis or clubbing, Normal movement of all extremities 8.Skin: Warm, Dry. No rashes or lesions. 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 Sensation grossly intact, no focal neurologic deficits. 10.Psych: (AAO) x3. Appropriate mood and affect Course Vital Signs Vital signs: Vital Signs Temperature 36.8 C 04/24/23 21:32 Pulse 65 04/24/23 21:32 Respiratory Rate 16 04/24/23 21:32 Blood Pressure 191/86 H 04/24/23 21:32 Pulse Oximetry 95 04/24/23 21:32 Temperature 36.8 C 04/24/23 21:36 Temperature Source Oral 04/24/23 21:36 Pulse 62 04/24/23 21:36 Respiratory Rate 16 04/24/23 21:36 Respiratory Effort Normal, Non-Labored 04/24/23 21:36 Blood Pressure 191/86 H 04/24/23 21:32 Pulse Oximetry 95 04/24/23 21:36 Oxygen Delivery Method Room Air 04/24/23 21:36 Oxygen Flow Rate 0 04/24/23 21:32 Pain Level 10 04/24/23 21:36 Comment less after BM on arrival. 04/24/23 21:32
== END 2023-04-24 21:53 | disposition home or self-care (01) ==
PROVIDERS: Emergency Provider Student in an Organized Health Care Education/Training Program; PCP Family Medicine
DX: K59.00 Constipation, unspecified (principal); R10.84 Generalized abdominal pain
CPT/HCPCS: 36415; 80053; 80076; 83690; 96360; 99282; 99285; 74177; 81003; 83735; 84484; 85025; 99283; J3490

== ENCOUNTER 2023-05-13 01:23 | Outpatient (CLI) | payer MEDICARE, OTHER, SELFPAY ==
[2023-05-13 13:49] LABS: Abs Immature Grans 0.01 10^3/uL (0.0-0.06); Absolute Basophil Count 0.05 10^3/uL (0.0-0.2); Absolute Eosinophil Count 0.15 10^3/uL (0.0-0.7); Absolute Lymphocyte Count 1.96 10^3/uL (1.2-3.4); Absolute Monocyte Count 0.34 10^3/uL (0.1-0.8); Absolute Neutrophil Count 2.74 10^3/uL (1.2-6.7); Eosinophils % 2.9; HCT 41.3 % (36.0-46.0); HGB 14.2 g/dL (11.2-15.7); Immature Grans % 0.2; Lymphocytes % 37.3; MCHC 34.4 % (32.0-36.0); MCV 96 fL (80-95); MPV 10.7 fL (8.0-11.0); Monocytes % 6.5; Neutrophils % 52.1; Platelet Count 297 10^3/uL (130-400); RDW 13.9 % (11.7-14.6); RDW-SD 48.9 fL; WBC 5.25 10^3/uL (4.4-10.8)
[2023-05-13 14:05] LABS: ALT 55 U/L (14-59); AST 28 U/L (15-37); Albumin 3.8 g/dL (3.4-5.0); Alkaline Phosphatase 162 U/L (46-116); Anion Gap 9.2 mmol/L (3-11); BUN 18 mg/dL (7-18); Bilirubin, Total 0.3 mg/dL (0.2-1.0); CO2 27.8 mmol/L (21.0-32.0); CREATININE 0.7 mg/dL (0.55-1.02); Calcium 9.8 mg/dL (8.5-10.1); Chloride 105 mmol/L (98-107); Estimated GFR 87.37 (mL/min/1.73m2); Glucose 102 mg/dL (74-106); Potassium 4.1 mmol/L (3.5-5.1); Sodium 142 mmol/L (136-145); Total Protein 7.6 g/dL (6.4-8.2)
[2023-05-16 13:12] LABS: Chromogranin A 42 ng/mL (<93)
== END 2023-05-13 01:24 | disposition home or self-care (01) ==
PROVIDERS: PCP Family Medicine; Visit Provider Nurse Practitioner Family
DX: C7B.8 Other secondary neuroendocrine tumors (principal)
CPT/HCPCS: 36415; 80053; 85025; 86316

== ENCOUNTER 2023-07-08 02:38 | Outpatient (CLI) | payer MEDICARE, OTHER, SELFPAY ==
[2023-07-08 11:24] LABS: Absolute Basophil Count 0.03 10^3/uL (0.0-0.2); Absolute Eosinophil Count 0.09 10^3/uL (0.0-0.7); Absolute Lymphocyte Count 1.63 10^3/uL (1.2-3.4); Absolute Monocyte Count 0.35 10^3/uL (0.1-0.8); Absolute Neutrophil Count 2.86 10^3/uL (1.2-6.7); Basophils % 0.6; Eosinophils % 1.8; HCT 41.6 % (36.0-46.0); HGB 13.9 g/dL (11.2-15.7); Lymphocytes % 32.9; MCH 32.3 pg (27.0-33.0); MCHC 33.4 % (32.0-36.0); MCV 97 fL (80-95); MPV 10.1 fL (8.0-11.0); Monocytes % 7.1; Neutrophils % 57.6; Platelet Count 256 10^3/uL (130-400); RBC 4.31 10^6/uL (3.93-5.22); RDW 13.5 % (11.7-14.6); RDW-SD 48.6 fL; WBC 4.96 10^3/uL (4.4-10.8)
[2023-07-08 11:37] LABS: ALT 28 U/L (14-59); AST 18 U/L (15-37); Albumin 3.8 g/dL (3.4-5.0); Alkaline Phosphatase 118 U/L (46-116); Anion Gap 8.9 mmol/L (3-11); BUN 19 mg/dL (7-18); Bilirubin, Total 0.5 mg/dL (0.2-1.0); CO2 28.1 mmol/L (21.0-32.0); CREATININE 0.7 mg/dL (0.55-1.02); Calcium 9.4 mg/dL (8.5-10.1); Chloride 104 mmol/L (98-107); Estimated GFR 87.37 (mL/min/1.73m2); Glucose 109 mg/dL (74-106); Potassium 4.2 mmol/L (3.5-5.1); Sodium 141 mmol/L (136-145); Total Protein 7.2 g/dL (6.4-8.2)
[2023-07-11 13:37] LABS: Chromogranin A 45 ng/mL (<93)
== END 2023-07-08 02:39 | disposition home or self-care (01) ==
PROVIDERS: PCP Family Medicine; Visit Provider Nurse Practitioner Family
DX: C78.6 Secondary malignant neoplasm of retroperitoneum and peritoneum (principal)
CPT/HCPCS: 36415; 80053; 85025; 86316

== ENCOUNTER 2023-08-05 12:04 | Outpatient (CLI) | payer MEDICARE, OTHER, SELFPAY ==
[2023-08-05 12:18] LABS: Abs Immature Grans 0.01 10^3/uL (0.0-0.06); Absolute Basophil Count 0.03 10^3/uL (0.0-0.2); Absolute Lymphocyte Count 1.46 10^3/uL (1.2-3.4); Absolute Monocyte Count 0.35 10^3/uL (0.1-0.8); Absolute Neutrophil Count 2.89 10^3/uL (1.2-6.7); Basophils % 0.6; Eosinophils % 2.1; HCT 40.8 % (36.0-46.0); HGB 13.9 g/dL (11.2-15.7); Immature Grans % 0.2; Lymphocytes % 30.2; MCH 32.8 pg (27.0-33.0); MCHC 34.1 % (32.0-36.0); MCV 96 fL (80-95); MPV 10.6 fL (8.0-11.0); Monocytes % 7.2; Neutrophils % 59.7; Platelet Count 251 10^3/uL (130-400); RBC 4.24 10^6/uL (3.93-5.22); RDW 13.9 % (11.7-14.6); RDW-SD 49.1 fL; WBC 4.84 10^3/uL (4.4-10.8)
[2023-08-05 12:40] LABS: ALT 31 U/L (14-59); AST 23 U/L (15-37); Albumin 3.7 g/dL (3.4-5.0); Alkaline Phosphatase 110 U/L (46-116); Anion Gap 9.1 mmol/L (3-11); BUN 19 mg/dL (7-18); Bilirubin, Total 0.4 mg/dL (0.2-1.0); CO2 26.9 mmol/L (21.0-32.0); CREATININE 0.6 mg/dL (0.55-1.02); Calcium 9.2 mg/dL (8.5-10.1); Chloride 106 mmol/L (98-107); Estimated GFR 90.68 (mL/min/1.73m2); Glucose 90 mg/dL (74-106); Potassium 4.1 mmol/L (3.5-5.1); Sodium 142 mmol/L (136-145); Total Protein 7.4 g/dL (6.4-8.2)
[2023-08-08 10:12] LABS: Chromogranin A 29 ng/mL (<93)
== END 2023-08-05 12:05 | disposition home or self-care (01) ==
LOC: LBO 12:05
PROVIDERS: PCP Family Medicine; Visit Provider Nurse Practitioner Family
DX: C7B.8 Other secondary neuroendocrine tumors (principal)
CPT/HCPCS: 36415; 80053; 85025; 86316

== ENCOUNTER 2023-09-02 13:35 | Outpatient (CLI) | payer MEDICARE, OTHER, SELFPAY ==
[2023-09-02 13:32] LABS: Abs Immature Grans 0.01 10^3/uL (0.0-0.06); Absolute Basophil Count 0.04 10^3/uL (0.0-0.2); Absolute Eosinophil Count 0.16 10^3/uL (0.0-0.7); Absolute Lymphocyte Count 1.86 10^3/uL (1.2-3.4); Absolute Monocyte Count 0.33 10^3/uL (0.1-0.8); Absolute Neutrophil Count 2.54 10^3/uL (1.2-6.7); Basophils % 0.8 %; Eosinophils % 3.2 %; HCT 39.8 % (36.0-46.0); HGB 13.3 g/dL (11.2-15.7); Immature Grans % 0.2 %; Lymphocytes % 37.7 %; MCH 32.6 pg (27.0-33.0); MCHC 33.4 % (32.0-36.0); MCV 98 fL (80-95); MPV 10.3 fL (8.0-11.0); Monocytes % 6.7 %; Neutrophils % 51.4 %; Platelet Count 243 10^3/uL (130-400); RBC 4.08 10^6/uL (3.93-5.22); RDW 13.6 % (11.7-14.6); RDW-SD 49.1 fL; WBC 4.94 10^3/uL (4.4-10.8)
[2023-09-02 13:47] LABS: ALT 29 U/L (14-59); AST 19 U/L (15-37); Albumin 3.8 g/dL (3.4-5.0); Alkaline Phosphatase 111 U/L (46-116); Anion Gap 9.8 mmol/L (3-11); BUN 19 mg/dL (7-18); Bilirubin, Total 0.4 mg/dL (0.2-1.0); CO2 26.2 mmol/L (21.0-32.0); CREATININE 0.7 mg/dL (0.55-1.02); Calcium 9.1 mg/dL (8.5-10.1); Chloride 106 mmol/L (98-107); Estimated GFR 87.37 (mL/min/1.73m2); Glucose 98 mg/dL (74-106); Potassium 3.9 mmol/L (3.5-5.1); Sodium 142 mmol/L (136-145); Total Protein 7.5 g/dL (6.4-8.2)
[2023-09-05 10:51] LABS: Chromogranin A 36 ng/mL (<93)
== END 2023-09-02 13:36 | disposition home or self-care (01) ==
LOC: LBO 13:35
PROVIDERS: PCP Family Medicine; Visit Provider Nurse Practitioner Family
DX: C7B.8 Other secondary neuroendocrine tumors (principal)
CPT/HCPCS: 36415; 80053; 85025; 86316

== ENCOUNTER 2023-09-30 05:20 | Outpatient (CLI) | payer MEDICARE, OTHER, SELFPAY ==
[2023-09-30 09:36] LABS: Abs Immature Grans 0.01 10^3/uL (0.0-0.06); Absolute Basophil Count 0.04 10^3/uL (0.0-0.2); Absolute Eosinophil Count 0.16 10^3/uL (0.0-0.7); Absolute Lymphocyte Count 1.76 10^3/uL (1.2-3.4); Absolute Monocyte Count 0.52 10^3/uL (0.1-0.8); Absolute Neutrophil Count 2.75 10^3/uL (1.2-6.7); Basophils % 0.8 %; Eosinophils % 3.1 %; HCT 39.1 % (36.0-46.0); HGB 13.1 g/dL (11.2-15.7); Immature Grans % 0.2 %; Lymphocytes % 33.6 %; MCH 32.5 pg (27.0-33.0); MCHC 33.5 % (32.0-36.0); MCV 97 fL (80-95); MPV 10.4 fL (8.0-11.0); Monocytes % 9.9 %; Neutrophils % 52.4 %; Platelet Count 236 10^3/uL (130-400); RBC 4.03 10^6/uL (3.93-5.22); RDW 13.6 % (11.7-14.6); WBC 5.24 10^3/uL (4.4-10.8)
[2023-09-30 09:59] LABS: ALT 28 U/L (14-59); AST 17 U/L (15-37); Albumin 3.7 g/dL (3.4-5.0); Alkaline Phosphatase 104 U/L (46-116); Anion Gap 8.5 mmol/L (3-11); BUN 20 mg/dL (7-18); Bilirubin, Total 0.4 mg/dL (0.2-1.0); CO2 26.5 mmol/L (21.0-32.0); CREATININE 0.7 mg/dL (0.55-1.02); Calcium 9.2 mg/dL (8.5-10.1); Chloride 106 mmol/L (98-107); Estimated GFR 87.37 (mL/min/1.73m2); Glucose 83 mg/dL (74-106); Potassium 4.3 mmol/L (3.5-5.1); Sodium 141 mmol/L (136-145)
[2023-10-03 13:22] LABS: Chromogranin A 45 ng/mL (<93)
== END 2023-09-30 05:21 | disposition home or self-care (01) ==
PROVIDERS: PCP Family Medicine; Visit Provider Nurse Practitioner Family
DX: C7B.8 Other secondary neuroendocrine tumors (principal)
CPT/HCPCS: 36415; 80053; 85025; 86316

== ENCOUNTER 2023-10-28 02:56 | Outpatient (CLI) | payer MEDICARE, OTHER, SELFPAY ==
[2023-10-28 10:01] LABS: Abs Immature Grans 0.01 10^3/uL (0.0-0.06); Absolute Basophil Count 0.03 10^3/uL (0.0-0.2); Absolute Lymphocyte Count 1.63 10^3/uL (1.2-3.4); Absolute Monocyte Count 0.47 10^3/uL (0.1-0.8); Absolute Neutrophil Count 2.99 10^3/uL (1.2-6.7); Basophils % 0.6 %; Eosinophils % 1.9 %; HCT 37.5 % (36.0-46.0); HGB 12.9 g/dL (11.2-15.7); Immature Grans % 0.2 %; Lymphocytes % 31.2 %; MCH 33.2 pg (27.0-33.0); MCHC 34.4 % (32.0-36.0); MCV 96 fL (80-95); MPV 10.7 fL (8.0-11.0); Neutrophils % 57.1 %; Platelet Count 242 10^3/uL (130-400); RBC 3.89 10^6/uL (3.93-5.22); RDW 13.4 % (11.7-14.6); WBC 5.23 10^3/uL (4.4-10.8)
[2023-10-28 10:15] LABS: ALT 30 U/L (14-59); AST 20 U/L (15-37); Albumin 3.6 g/dL (3.4-5.0); Alkaline Phosphatase 106 U/L (46-116); Anion Gap 6.2 mmol/L (3-11); BUN 19 mg/dL (7-18); Bilirubin, Total 0.42 mg/dL (0.2-1.0); CO2 28.8 mmol/L (21.0-32.0); CREATININE 0.6 mg/dL (0.55-1.02); Chloride 106 mmol/L (98-107); Estimated GFR 90.12 (mL/min/1.73m2); Glucose 78 mg/dL (74-106); Potassium 4.1 mmol/L (3.5-5.1); Sodium 141 mmol/L (136-145)
[2023-10-31 13:15] LABS: Chromogranin A 37 ng/mL (<93)
== END 2023-10-28 02:57 | disposition home or self-care (01) ==
PROVIDERS: PCP Family Medicine; Visit Provider Nurse Practitioner Family
DX: C7B.8 Other secondary neuroendocrine tumors (principal)
CPT/HCPCS: 36415; 80053; 85025; 86316

== ENCOUNTER 2023-12-09 01:26 | Outpatient (CLI) | payer MEDICARE, OTHER, SELFPAY ==
[2023-12-09 12:26] LABS: Abs Immature Grans 0.01 10^3/uL (0.0-0.06); Absolute Basophil Count 0.03 10^3/uL (0.0-0.2); Absolute Eosinophil Count 0.08 10^3/uL (0.0-0.7); Absolute Monocyte Count 0.32 10^3/uL (0.1-0.8); Basophils % 0.7 %; Eosinophils % 1.8 %; HCT 40.5 % (36.0-46.0); HGB 13.4 g/dL (11.2-15.7); Immature Grans % 0.2 %; MCH 32.1 pg (27.0-33.0); MCHC 33.1 % (32.0-36.0); MCV 97 fL (80-95); MPV 10.8 fL (8.0-11.0); Monocytes % 7.2 %; Neutrophils % 54.1 %; Platelet Count 243 10^3/uL (130-400); RBC 4.17 10^6/uL (3.93-5.22); RDW 13.1 % (11.7-14.6); RDW-SD 46.5 fL; WBC 4.44 10^3/uL (4.4-10.8)
[2023-12-09 13:27] LABS: ALT 28 U/L (14-59); AST 20 U/L (15-37); Albumin 3.7 g/dL (3.4-5.0); Alkaline Phosphatase 101 U/L (46-116); Anion Gap 9.4 mmol/L (3-11); BUN 22 mg/dL (7-18); Bilirubin, Total 0.51 mg/dL (0.2-1.0); CO2 26.6 mmol/L (21.0-32.0); CREATININE 0.9 mg/dL (0.55-1.02); Calcium 9.1 mg/dL (8.5-10.1); Chloride 105 mmol/L (98-107); Estimated GFR 64.23 (mL/min/1.73m2); Glucose 103 mg/dL (74-106); Potassium 4.1 mmol/L (3.5-5.1); Sodium 141 mmol/L (136-145); Total Protein 7.1 g/dL (6.4-8.2)
[2023-12-12 16:23] LABS: Chromogranin A 29 ng/mL (<93)
== END 2023-12-09 01:27 | disposition home or self-care (01) ==
PROVIDERS: PCP Family Medicine; Visit Provider Nurse Practitioner Family
DX: C7B.8 Other secondary neuroendocrine tumors (principal)
CPT/HCPCS: 36415; 80053; 85025; 86316

== ENCOUNTER 2024-04-23 03:20 | Outpatient (CLI) | payer MEDICARE, OTHER, SELFPAY ==
[2024-04-23 08:41] LABS: Abs Immature Grans 0.01 10^3/uL (0.0-0.06); Absolute Basophil Count 0.04 10^3/uL (0.0-0.2); Absolute Eosinophil Count 0.13 10^3/uL (0.0-0.7); Absolute Lymphocyte Count 1.44 10^3/uL (1.2-3.4); Absolute Monocyte Count 0.32 10^3/uL (0.1-0.8); Absolute Neutrophil Count 2.67 10^3/uL (1.2-6.7); Basophils % 0.9 %; Eosinophils % 2.8 %; HGB 13.5 g/dL (11.2-15.7); Immature Grans % 0.2 %; Lymphocytes % 31.2 %; MCH 32.3 pg (27.0-33.0); MCHC 32.9 % (32.0-36.0); MCV 98 fL (80-95); MPV 10.8 fL (8.0-11.0); Monocytes % 6.9 %; Platelet Count 275 10^3/uL (130-400); RBC 4.18 10^6/uL (3.93-5.22); RDW 13.6 % (11.7-14.6); RDW-SD 49.8 fL; WBC 4.61 10^3/uL (4.4-10.8)
[2024-04-23 09:02] LABS: ALT 40 U/L (14-59); AST 25 U/L (15-37); Albumin 3.3 g/dL (3.4-5.0); Alkaline Phosphatase 124 U/L (46-116); BUN 15 mg/dL (7-18); Bilirubin, Total 0.38 mg/dL (0.2-1.0); Calcium 9.1 mg/dL (8.5-10.1); Chloride 105 mmol/L (98-107); Glucose 121 mg/dL (74-106); Potassium 4.4 mmol/L (3.5-5.1); Sodium 142 mmol/L (136-145); Total Protein 7.2 g/dL (6.4-8.2)
[2024-04-26 11:25] LABS: Chromogranin A 34 ng/mL (<93)
== END 2024-04-23 03:21 | disposition home or self-care (01) ==
PROVIDERS: PCP Family Medicine; Visit Provider Nurse Practitioner Family
DX: C7B.09 Secondary carcinoid tumors of other sites (principal)
CPT/HCPCS: 36415; 80053; 85025; 86316

== ENCOUNTER 2024-05-15 16:42 | Outpatient (REF) | payer MEDICARE, OTHER, SELFPAY ==
[2024-05-15 21:54] LABS: Abs Immature Grans 0.01 10^3/uL (0.0-0.06); Absolute Basophil Count 0.03 10^3/uL (0.0-0.2); Absolute Eosinophil Count 0.09 10^3/uL (0.0-0.7); Absolute Lymphocyte Count 1.29 10^3/uL (1.2-3.4); Absolute Monocyte Count 0.36 10^3/uL (0.1-0.8); Absolute Neutrophil Count 3.38 10^3/uL (1.2-6.7); Basophils % 0.6 %; Eosinophils % 1.7 %; HCT 41.7 % (36.0-46.0); HGB 13.5 g/dL (11.2-15.7); Immature Grans % 0.2 %; MCH 32.3 pg (27.0-33.0); MCHC 32.4 % (32.0-36.0); MCV 100 fL (80-95); MPV 12.3 fL (8.0-11.0); Neutrophils % 65.5 %; Platelet Count 278 10^3/uL (130-400); RBC 4.18 10^6/uL (3.93-5.22); RDW 13.4 % (11.7-14.6); RDW-SD 49.8 fL; WBC 5.16 10^3/uL (4.4-10.8)
[2024-05-15 22:00] LABS: ESR 12 mm/hr (0-30)
[2024-05-15 22:21] LABS: ALT 41 U/L (14-59); AST 30 U/L (15-37); Albumin 3.6 g/dL (3.4-5.0); Alkaline Phosphatase 130 U/L (46-116); Anion Gap 6.3 mmol/L (3-11); BUN 16 mg/dL (7-18); Bilirubin, Total 0.23 mg/dL (0.2-1.0); CO2 30.7 mmol/L (21.0-32.0); CREATININE 0.7 mg/dL (0.55-1.02); Calcium 9.4 mg/dL (8.5-10.1); Chloride 106 mmol/L (98-107); Estimated GFR 86.83 (mL/min/1.73m2); Glucose 100 mg/dL (74-106); Potassium 4.3 mmol/L (3.5-5.1); Sodium 143 mmol/L (136-145); Total Protein 6.8 g/dL (6.4-8.2)
[2024-05-17 10:46] LABS: Lyme Ab w Rflx to Lyme Confirm Positive (Negative)
[2024-05-17 11:43] LABS: Lyme IgG Ab Positive (Negative); Lyme IgM Ab Positive (Negative)
[2024-05-19 14:10] LABS: Anaplasma phagocytophilum Negative (Negative); B. miyamotoi PCR Negative (Negative); Babesia divergens/MO-1 Negative (Negative); Babesia duncani Negative (Negative); Babesia microti Negative (Negative); Ehrlichia chaffeensis Negative (Negative); Ehrlichia ewingii/canis Negative (Negative); Ehrlichia muris eauclairensis Negative (Negative)
== END 2024-05-15 16:43 | disposition home or self-care (01) ==
LOC: NCHCN 16:42
PROVIDERS: PCP Family Medicine; Visit Provider Physician Assistant
DX: G89.29 Other chronic pain (principal)
CPT/HCPCS: 80053; 85652; 86617; 87798; 85025; 86618

== ENCOUNTER 2024-07-19 02:39 | Outpatient (CLI) | payer MEDICARE, OTHER, SELFPAY ==
[2024-07-19 12:53] LABS: Abs Immature Grans 0.01 10^3/uL (0.0-0.06); Absolute Basophil Count 0.04 10^3/uL (0.0-0.2); Absolute Lymphocyte Count 1.85 10^3/uL (1.2-3.4); Absolute Neutrophil Count 2.48 10^3/uL (1.2-6.7); Basophils % 0.8 %; Eosinophils % 2.1 %; HCT 42.1 % (36.0-46.0); Immature Grans % 0.2 %; Lymphocytes % 38.7 %; MCHC 33.3 % (32.0-36.0); MCV 96 fL (80-95); MPV 10.6 fL (8.0-11.0); Monocytes % 6.3 %; Neutrophils % 51.9 %; Platelet Count 240 10^3/uL (130-400); RBC 4.37 10^6/uL (3.93-5.22); RDW 13.7 % (11.7-14.6); RDW-SD 48.8 fL; WBC 4.78 10^3/uL (4.4-10.8)
[2024-07-19 13:17] LABS: ALT 34 U/L (14-59); AST 23 U/L (15-37); Albumin 3.7 g/dL (3.4-5.0); Alkaline Phosphatase 111 U/L (46-116); Anion Gap 5.9 mmol/L (3-11); BUN 21 mg/dL (7-18); Bilirubin, Total 0.3 mg/dL (0.2-1.0); CO2 27.1 mmol/L (21.0-32.0); CREATININE 0.8 mg/dL (0.55-1.02); Calcium 9.5 mg/dL (8.5-10.1); Chloride 107 mmol/L (98-107); Estimated GFR 73.98 (mL/min/1.73m2); Glucose 162 mg/dL (74-106); Sodium 140 mmol/L (136-145); Total Protein 6.9 g/dL (6.4-8.2)
[2024-07-20 19:55] LABS: Chromogranin A 30 ng/mL (<93)
== END 2024-07-19 02:40 | disposition home or self-care (01) ==
PROVIDERS: PCP Family Medicine; Visit Provider Nurse Practitioner Family
DX: C7B.09 Secondary carcinoid tumors of other sites (principal)
CPT/HCPCS: 36415; 80053; 85025; 86316

== ENCOUNTER 2024-09-13 03:24 | Outpatient (CLI) | payer MEDICARE, OTHER, SELFPAY ==
[2024-09-13 12:57] LABS: HCT 38.7 % (36.0-46.0); HGB 13.1 g/dL (11.2-15.7); MCH 32.6 pg (27.0-33.0); MCHC 33.9 % (32.0-36.0); MCV 96 fL (80-95); MPV 10.3 fL (8.0-11.0); Platelet Count 273 10^3/uL (130-400); RBC 4.02 10^6/uL (3.93-5.22); RDW 13.6 % (11.7-14.6); RDW-SD 48.5 fL; WBC 4.44 10^3/uL (4.4-10.8)
[2024-09-13 13:24] LABS: ALT 36 U/L (14-59); AST 23 U/L (15-37); Albumin 3.7 g/dL (3.4-5.0); Alkaline Phosphatase 149 U/L (46-116); Anion Gap 8.2 mmol/L (3-11); BUN 22 mg/dL (7-18); Bilirubin, Total 0.5 mg/dL (0.2-1.0); CO2 27.8 mmol/L (21.0-32.0); CREATININE 0.6 mg/dL (0.55-1.02); Calcium 9.7 mg/dL (8.5-10.1); Chloride 104 mmol/L (98-107); Estimated GFR 90.12 (mL/min/1.73m2); Glucose 103 mg/dL (74-106); Potassium 3.9 mmol/L (3.5-5.1); Sodium 140 mmol/L (136-145); Total Protein 7.1 g/dL (6.4-8.2)
[2024-09-14 20:06] LABS: Chromogranin A 42 ng/mL (<93)
== END 2024-09-13 03:25 | disposition home or self-care (01) ==
LOC: LBO 03:24
PROVIDERS: PCP Family Medicine; Visit Provider Nurse Practitioner Family
DX: C7B.09 Secondary carcinoid tumors of other sites (principal)
CPT/HCPCS: 36415; 80053; 85027; 86316

== ENCOUNTER 2024-09-21 00:55 | Outpatient (CLI) | payer MEDICARE, OTHER, SELFPAY ==
[2024-09-24 13:14] LABS: Lyme Ab w Rflx to Lyme Confirm Equivocal (Negative)
[2024-09-24 13:51] LABS: Anaplasma phagocytophilum Negative (Negative); B. miyamotoi PCR Negative (Negative); Babesia divergens/MO-1 Negative (Negative); Babesia duncani Negative (Negative); Babesia microti Negative (Negative); Ehrlichia chaffeensis Negative (Negative); Ehrlichia ewingii/canis Negative (Negative); Ehrlichia muris eauclairensis Negative (Negative)
[2024-09-24 15:28] LABS: Lyme IgG Ab Negative (Negative); Lyme IgM Ab Positive (Negative)
== END 2024-09-21 00:56 | disposition home or self-care (01) ==
LOC: LOS 00:55
PROVIDERS: PCP Family Medicine; Referring Provider Nurse Practitioner Family; Visit Provider Nurse Practitioner Family
DX: S40.862A Insect bite (nonvenomous) of left upper arm, initial encounter (principal); W57.XXXA Bitten or stung by nonvenomous insect and other nonvenomous arthropods, initial encounter
CPT/HCPCS: 36415; 86617; 87798; 86618

== ENCOUNTER 2024-10-11 14:13 | Outpatient (CLI) | payer MEDICARE, OTHER, SELFPAY ==
[2024-10-11 13:56] LABS: Abs Immature Grans 0.01 10^3/uL (0.0-0.06); Absolute Basophil Count 0.03 10^3/uL (0.0-0.2); Absolute Lymphocyte Count 1.74 10^3/uL (1.2-3.4); Absolute Monocyte Count 0.39 10^3/uL (0.1-0.8); Absolute Neutrophil Count 2.01 10^3/uL (1.2-6.7); Basophils % 0.7 %; Eosinophils % 2.3 %; HCT 38.1 % (36.0-46.0); HGB 12.6 g/dL (11.2-15.7); Immature Grans % 0.2 %; Lymphocytes % 40.7 %; MCH 32.2 pg (27.0-33.0); MCHC 33.1 % (32.0-36.0); MCV 97 fL (80-95); MPV 10.3 fL (8.0-11.0); Monocytes % 9.1 %; Platelet Count 239 10^3/uL (130-400); RBC 3.91 10^6/uL (3.93-5.22); RDW 13.4 % (11.7-14.6); RDW-SD 48.1 fL; WBC 4.27 10^3/uL (4.4-10.8)
[2024-10-11 14:52] LABS: ALT 36 U/L (14-59); AST 18 U/L (15-37); Albumin 3.7 g/dL (3.4-5.0); Alkaline Phosphatase 100 U/L (46-116); Anion Gap 3.7 mmol/L (3-11); BUN 22 mg/dL (7-18); Bilirubin, Total 0.3 mg/dL (0.2-1.0); CO2 30.3 mmol/L (21.0-32.0); CREATININE 0.6 mg/dL (0.55-1.02); Calcium 9.1 mg/dL (8.5-10.1); Chloride 106 mmol/L (98-107); Estimated GFR 89.56 (mL/min/1.73m2); Glucose 102 mg/dL (74-106); Potassium 4.3 mmol/L (3.5-5.1); Sodium 140 mmol/L (136-145); Total Protein 6.9 g/dL (6.4-8.2)
[2024-10-12 19:10] LABS: Chromogranin A 42 ng/mL (<93)
== END 2024-10-11 14:14 | disposition home or self-care (01) ==
LOC: LBO 14:13
PROVIDERS: PCP Family Medicine; Visit Provider Nurse Practitioner Family
DX: C7B.09 Secondary carcinoid tumors of other sites (principal)
CPT/HCPCS: 36415; 80053; 85025; 86316

== ENCOUNTER 2024-10-30 14:23 | Outpatient (CLI) | payer MEDICARE, OTHER, SELFPAY ==
--- NOTE | 2024-10-30 13:45 | DI.RAD_ITS ---
Exam(s) XR SHOULDER RT COMPLETE 2+V EXAM: XR SHOULDER RT COMPLETE 2+V CLINICAL HISTORY: RIGHT SHOULDER PAIN. TECHNIQUE: 2D digital imaging was performed. Two views. COMPARISON: No exams were available for comparison FINDINGS: BONES: No acute fracture is present. No bony destructive lesion is seen. Mild spurring at the greater tuberosity. Mild spurring at the undersurface of the acromion. JOINTS: No dislocation present. Glenohumeral joint space is mildly narrowed. No significant periarticular spurring. SOFT TISSUE: Normal. IMPRESSION: Mild degenerative changes. DATA REPOSITORY: RADIATION DOSE DELIVERED:
== END 2024-10-30 14:24 | disposition home or self-care (01) ==
LOC: DIORS 14:23
PROVIDERS: PCP Family Medicine; Referring Provider Family Medicine; Visit Provider Student in an Organized Health Care Education/Training Program
DX: M25.511 Pain in right shoulder (principal); M75.101 Unspecified rotator cuff tear or rupture of right shoulder, not specified as traumatic; M12.811 Other specific arthropathies, not elsewhere classified, right shoulder; Z98.890 Other specified postprocedural states; Z90.13 Acquired absence of bilateral breasts and nipples
CPT/HCPCS: 99213; 20610; J1010; 73030

== ENCOUNTER 2024-11-01 10:33 | Outpatient (CLI) | payer MEDICARE, OTHER, SELFPAY ==
[2024-11-01 19:25] LABS: Hep A Total Ab w Rflx IgM Negative (Negative)
[2024-11-02 11:19] LABS: Lyme Ab w Rflx to Lyme Confirm Equivocal (Negative)
[2024-11-02 16:25] LABS: Lyme IgG Ab Negative (Negative)
[2024-11-04 15:54] LABS: B. miyamotoi PCR Negative (Negative); Babesia divergens/MO-1 Negative (Negative); Ehrlichia muris eauclairensis Negative (Negative)
== END 2024-11-01 10:34 | disposition home or self-care (01) ==
LOC: LOS 10:34
PROVIDERS: PCP Family Medicine; Referring Provider Family Medicine; Visit Provider Family Medicine
DX: R53.1 Weakness (principal); W57.XXXA Bitten or stung by nonvenomous insect and other nonvenomous arthropods, initial encounter
CPT/HCPCS: 36415; 86617; 86709; 87798; 86618

== ENCOUNTER 2024-11-04 07:35 | Emergency (ER) | payer MEDICARE, OTHER, SELFPAY ==
[2024-11-04] VITALS (32 sets, daily range): BP systolic 178–210; BP diastolic 79–113; PULSE 47–83; RESP 11–24; TEMP 36.1–36.9; O2SAT 93–100
--- NOTE | 2024-11-04 07:30 | RT.EKG_ITS ---
APPROVED REPORT Exam: Resting ECG Reason for Exam: hypertension Patient Location: E HR:57 bpm ECG Measurements Heart Rate [address] 135 P 49 QRSd 88 QRS -29 QT 388 T 48 QTc 378 Conclusion Sinus bradycardia, rate 57 No interval abnormalities No STEMI No priors available for comparison
--- NOTE | 2024-11-04 07:45 | W.ED.GENAD ---
Discharge Plan Disposition Patient Disposition: Home Condition: Stable Discharge Details Clinical Impression: Elevated BP without diagnosis of hypertension, FLOR (obstructive sleep apnea) Primary Care Provider: Dallin Welch ED Provider: Natividad Carr Recommendations for Follow Up Recommended tests to be ordered by follow up provider: BUN/Cr recheck 1-2 weeks Home Meds and New Rx's Prescriptions: New lisinopril 5 mg tablet 5 mg PO DAILY Qty: 30 0RF No Action valacyclovir 1 gram tablet 1,000 mg PO BID PRN Patient Comments: 11/14/18 prn. si Rx Instructions: one pill BID for 2 days at onset of cold sore omeprazole 20 mg capsule,delayed release(DR/EC) 10 mg PO DAILY PRN octreotide,microspheres 10 mg suspension,extended rel recon 20 mg IM Q4W acetaminophen [Tylenol Arthritis Pain] 650 MG tablet extended release 1,300 mg PO BID PRN cholecalciferol (vitamin D3) 1,000 UNIT tablet 1,000 unit PO DAILY CPAP 1 dose inhalation QHS Rx Instructions: sleep apnea cod liver oil (bulk) 1 ML oil 1 tsp PO DAILY lidocaine-prilocaine 2.5-2.5 % cream 1 applic topical ONCE PRN (Reason: phlebotomy) Qty: 5 2RF lidocaine [Lidoderm] 5 % adhesive patch,medicated 1 patch topical DAILY Qty: 15 0RF Rx Instructions: leave on most painful area for up to 12 hrs paroxetine HCl 20 mg tablet 10 mg PO DAILY Qty: 45 3RF clonazepam 0.5 mg tablet 0.5 mg PO hs prn Qty: 15 0RF Rx Instructions: Discharge Instructions Instructions: High Blood Pressure ED Additional Instructions: You were seen in the emergency department today for evaluation of a high blood pressure reading, fatigue, and headache. In our department you had a full physical examination performed that was reassuring against stroke. You had no evidence of heart attack and your laboratory studies were reassuring, though you did have a slight increase in your kidney function tests compared to your normal. Your blood pressure readings were quite elevated, and it is reasonable at this time to start you on a medication called lisinopril to start managing that blood pressure. You will take this medication once per day, and need to contact your primary care doctor tomorrow to schedule a follow-up appointment to determine that you do not need changes in the doses of this medication. I also recommend that you restart using your CPAP daily, as untreated FLOR can cause headaches, fatigue, and elevation in blood pressure readings. It is possible that if you start to use your CPAP regularly, your provider may be able to lower your dose of medication or even take you off of it entirely. Please continue to monitor your blood pressure at home and keep a journal or a log of the readings for your provider. If your blood pressure is ever below 100 systolic (that is the top number) you should not take your medication as I do not want your blood pressure to go too low. If you start to feel dizzy or lightheaded, please stop taking this medication, increase your hydration and contact your provider, or return to the emergency department for reevaluation. You should also return to the emergency department if you develop chest pain, weakness or numbness on one side of your body, or any other symptoms that cause you concern. Thank you for allowing us to be part of your care. HPI General Mode of arrival: ambulatory. Date/Time Provider Initiated Documentation: 11/04/24 07:38. Limitations to Documentation: no limitations. Information obtained by: patient and old records reviewed. HPI Narrative: This is an 84-year-old female patient with a past medical history significant for FLOR, arthritis, GERD, and a history of Lyme disease status post doxycycline, who is presenting for evaluation of several days of elevated blood pressure readings, fatigue, and headaches. On review of her chart, I note that the patient was seen in the urgent care clinic a few days ago for symptoms of fatigue, had hepatitis A testing due to a family sick contact that was negative, had an equivocal Lyme antibody screen which likely represents sequelae of recent infection. I note that on her express care visit on 10/27 her blood pressure was 115/74, and on the clinic visit on 11/01 her blood pressure was recorded as 52/85. She does not take any antihypertensive medications. The patient reports that a few days ago she noted that she was feeling increasingly fatigued and had a gradual onset mild headache. She was prompted at that time to check her blood pressure she was concerned that if it was too high she may have a stroke. She has blood pressure readings from 11/02 to 03/07, which range [id number]. She reports that she is not experiencing any vision changes, new numbness or weakness, changes in speech, chest pain, or shortness of breath. She has not had any changes to her bowel or bladder habits. She states that she has not been utilizing her CPAP very frequently, but last night did use it and felt like she slept quite well. She has not had any recent fevers or chills, has been eating and drinking typically for her. Related Data Home Medications ?Medication ?Instructions ?Recorded ?Confirmed acetaminophen 650 mg 1,300 mg PO BID PRN 02/27/13 11/04/24 tablet,extended release (Tylenol Arthritis Pain) cholecalciferol (vitamin D3) 25 1,000 unit PO DAILY 02/27/13 11/04/24 mcg (1,000 unit) tablet Cpap 1 dose inhalation QHS 03/19/14 11/04/24 cod liver oil (bulk) 100 % 1 tsp PO DAILY 05/07/14 11/04/24 octreotide,microspheres 10 mg 20 mg IM Q4W 10/21/20 11/04/24 intramuscular susp, extended release omeprazole 20 mg capsule,delayed 10 mg PO DAILY PRN 10/21/20 11/04/24 release valacyclovir 1 gram tablet 1,000 mg PO BID PRN 10/21/20 11/04/24 lidocaine-prilocaine 2.5 %-2.5 % 1 applic topical ONCE PRN 02/04/22 11/04/24 topical cream phlebotomy #5 grams lidocaine 5 % topical patch 1 patch topical DAILY #15 ea 12/08/23 11/04/24 (Lidoderm) paroxetine HCl 20 mg tablet 10 mg (1/2 x 20 mg) PO DAILY #45 07/16/24 11/04/24 tab-caps clonazepam 0.5 mg tablet 0.5 mg PO hs prn #15 tab-caps 09/29/24 11/04/24 lisinopril 5 mg tablet 5 mg PO DAILY #30 tabs 11/04/24 Previous Rx's ?Medication ?Instructions ?Recorded lidocaine-prilocaine 2.5 %-2.5 % 1 applic topical ONCE PRN 02/04/22 topical cream phlebotomy #5 grams lidocaine 5 % topical patch 1 patch topical DAILY #15 ea 12/08/23 (Lidoderm) paroxetine HCl 20 mg tablet 10 mg (1/2 x 20 mg) PO DAILY #45 03/24/25 tab-caps clonazepam 0.5 mg tablet 0.5 mg PO hs prn #15 tab-caps 09/29/24 lisinopril 5 mg tablet 5 mg PO DAILY #30 tabs 11/04/24 Allergies Allergy/AdvReac Type Severity Reaction Status Date / Time citalopram AdvReac Severe ANXIETY Verified 11/04/24 07:43 ATTACKS venlafaxine AdvReac Unknown increased Verified 11/04/24 07:43 anxiety General Stated Complaint: GenMedical HANNAH: 3 Exam Narrative Exam Narrative: Gen: awake and alert, in no apparent distress. Appears well nourished. HEENT: PERRL, EOMs full and without nystagmus. External ears and nose normal, mucous membranes moist. Neck: Supple, full range of motion, no observable masses Lungs: No increased work of breathing, lung sounds clear and equal bilaterally without wheezes, rhonchi, or rales. CV: Heart with regular rate and rhythm, no murmurs auscultated. Strong and symmetrical radial pulses. Abdomen: Soft, nondistended, non-tender to palpation. MSK: No joint swelling, no redness. Full ROM without limitation, no external traumatic findings. Skin: No rashes or lesions to visualized skin. Normal color, warm, and dry. Neuro: Cranial nerves II-XII intact and symmetrical bilaterally. 5/5 strength in all muscle groups x4 extremities. No sensory deficits. No pronator drift. Ambulates with steady gait. Psych: Appropriate for situation. Course Vital Signs Vital signs: Vital Signs Temperature 36.1 C L 11/04/24 07:40 Pulse 60 11/04/24 07:40 Respiratory Rate 18 11/04/24 07:40 Blood Pressure 193/113 H 11/04/24 07:40 Pulse Oximetry 100 11/04/24 07:40 Temperature 36.1 C L 11/04/24 07:40 Temperature Source Tympanic 11/04/24 07:40 Pulse 60 11/04/24 07:40 Respiratory Rate 18 11/04/24 07:40 Blood Pressure 193/113 H 11/04/24 07:40 Blood Pressure Position Sitting 11/04/24 07:40 Pulse Oximetry 100 11/04/24 07:40 Oxygen Delivery Method Room Air 11/04/24 07:40 Oxygen Flow Rate 0 11/04/24 07:40 Pain Level 6 11/04/24 07:40 Medical Decision Making This is a an 84-year-old female patient presenting for evaluation of headache and hypertension with generalized fatigue. My differential includes but is not limited to essential hypertension, though the patient has no diagnosis of same and is not on any antihypertensive medications. Certainly considered hypertensive emergency given her blood pressure reading in this emergency department of 187/112, though I am reassured by the patient's lack of neurodeficits against etiology such as stroke, intracranial hemorrhage. Her headache was not thunderclap in nature making SAH less likely. She has no chest pain to suggest ACS, I notes no significant arrhythmias on the telemetry monitoring. Considered endorgan damage also to include proteinuria and kidney injury, electrolyte derangement, considered anemia as an alternative cause of her fatigue. Finally, I did consider whether the patient's known FLOR and lack of use of CPAP could be contributing to her headaches, fatigue, and hypertension. No recent tick bites reported since her last course of doxycycline and with the equivocal Lyme antibody after recent treatment I feel that tickborne illnesses a less likely contributor to her symptoms today. I reviewed the patient's EKG, which shows sinus bradycardia without evidence of interval abnormality, ectopy, or acute ischemia. I had a shared decision-making conversation with the patient regarding next steps in workup and management, as her clinical evaluation is quite reassuring. However, the patient is greatly desiring of a laboratory workup which I feel is not unreasonable given her age, and for this reason we will proceed with CBC, CMP, magnesium, troponin, and a urinalysis. I will provide the patient with a dose of Tylenol for management of her headache. At this time I do not see an indication to proceed with advanced imaging. - I independently interpreted the laboratory studies, which show no significant leukocytosis, anemia, or thrombocytopenia. The chemistry panel is without evidence of electrolyte abnormality or liver injury. Her BUN and creatinine are slightly elevated compared to her most recent priors, with a BUN of 31 and a creatinine of 1.3. Her urinalysis shows no proteinuria, nor evidence of infection or hematuria. I had an extended discussion with the patient regarding hypertension management, and I do suspect that untreated FLOR may be a significant contributor. Her blood pressures in the emergency department have remained in the 190s to 200s, and I do feel like initiation of an oral medication is appropriate at this time. I also counseled her to continue monitoring her blood pressure to ensure that she does not go too low, and gave her hold parameters for lisinopril. Her first dose of lisinopril was provided in the emergency department and a prescription for same sent to her pharmacy. She was counseled to restart using her CPAP, and follow-up with her outpatient providers to discuss repeat kidney function testing, dosing changes for her antihypertensives, and any other significant concerns. At this time, the patient has had a full medical evaluation and is safe for discharge to home. They are hemodynamically stable, ambulatory, and tolerating PO. They are understanding of the follow-up plan and return precautions. They left our facility without incident. Natividad Carr MD PFSH All Active Problems (Updated 11/04/24 @ 10:00 by Natividad Carr MD) Elevated BP without diagnosis of hypertension (Acute) Dysphagia (Acute) Weakness (Acute) Right rotator cuff tear arthropathy (Acute) Hyperglycemia (Acute) Screening for viral disease (Acute) Onychogryphosis (Acute) Thoracic back pain (Acute) Tumor (Acute ~05/01/19) [facility] Neuro endocrine tumor s/p resection-kb LPRD (laryngopharyngeal reflux disease) (Acute) Dr. 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 ([facility] [place]) Bilateral mastectomy 06/03 Depressive disorder (Acute) anxiety Intestinal obstruction (Acute 05/05/12) 2011 small bowel obstruction (in [place] while visiting daughter) Gastro-esophageal reflux disease without esophagitis (Acute) FLOR (obstructive sleep apnea) (Chronic) Abnormal auditory perception (Acute) Phlegm in throat (Acute) blood likely from irritation doubt neoplasm Chest pain (Acute) Fatigue (Acute 03/28/12) Onychomycosis (Acute 03/03/12) Palpitations (Acute) Restless legs syndrome (Acute 03/24/07) Status post bilateral mastectomy (Acute) Hip pain, right (Chronic) Abdominal mass (Acute 04/03/13) f/u CT scan [facility] 05/30/13, 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 Arthritis (Acute) back and hands Intermittent abdominal pain (Acute 05/09/15) Knee pain, bilateral (Acute 05/09/15) Low back pain (Chronic 03/16/11) Osteopenia (Acute 08/16/17) Polyp of colon (Acute 06/24/11) [facility] 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/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 (brother with colon cancer) Sleep apnea (Acute) C PAP Trigeminy (Acute 04/02/16) ZIOPATCH 04/02/16 Urinary frequency (Acute) Surgical History History of total right hip arthroplasty (~11/20/19) [facility] S/P small bowel resection (~05/01/19) 05/01/19 [facility] (04/02/16) Breast, Mastectomy Bilateral (~05/2008) Family History Mother , AGE 77 Diabetes Essential hypertension Heart disease Hyperlipidemia Stroke Father , AGE 72 Heart disease Asthma Sister , AGE 72 Diabetes Lung cancer Brother , AGE 62 Diabetes Essential hypertension Hyperlipidemia Colon cancer Brother Heart disease Prostate cancer Brother Heart disease Myocardial infarction Son No problems noted. Son No problems noted. Daughter No problems noted. Sister No problems noted. Sister No problems noted. Maternal Grandfather , AGE 62 No problems noted. Paternal Grandfather , AGE 77 No problems noted. Maternal Grandmother No problems noted. Paternal Grandmother , AGE 65 No problems noted. Social History Smoking/Tobacco Use Status: Never Second Hand Exposure: Yes Smoking risk assessment performed?: Yes Alcohol Intake: current Alcohol Intake frequency: holidays/special occasions only Alcohol type: wine Details: Never more than one socially Drug use: Never Substance use type: does not use Caregiver/Support person: No Household members: none Housing: house Communication Needs: None Do you need help understanding health information?: Rarely Pets and animals: No Do you think of yourself as: straight/heterosexual Current gender identity: female What is your relationship status?: How often do you talk on the phone with friends or family?: three or more times per week How often do you get together with friends or relatives?: twice per week Do you belong to any clubs or organized social groups?: no Panel score (0-1 are the most socially isolated patients): 1 What type of physical activity do you participate in: walking and other Details: Yard work,House work Duration: 30-45 minutes/day Frequency: 5-6 times per week Marleen/Methodist: Orthodoxy Special marleen needs: No Seatbelt use: always Helmet use: No Drive intox or ride w/intox cdl a driver: No Do you feel safe at home: Yes Do you feel safe in your relationship?: Yes
[2024-11-04] MEDS: Acetaminophen 500 MG TAB 1000 MG PO (08:23)
[2024-11-04 08:25] LABS: Abs Immature Grans 0.02 10^3/uL (0.0-0.06); HCT 39.4 % (36.0-46.0); HGB 13.1 g/dL (11.2-15.7); Immature Grans % 0.4 %; MCH 31.8 pg (27.0-33.0); MCHC 33.2 % (32.0-36.0); MCV 96 fL (80-95); MPV 10.6 fL (8.0-11.0); Platelet Count 246 10^3/uL (130-400); RBC 4.12 10^6/uL (3.93-5.22); RDW 12.7 % (11.7-14.6); RDW-SD 44.8 fL; WBC 4.97 10^3/uL (4.4-10.8)
[2024-11-04 08:47] LABS: ALT 34 U/L (14-59); AST 13 U/L (15-37); Albumin 3.8 g/dL (3.4-5.0); Alkaline Phosphatase 106 U/L (46-116); Anion Gap 8.4 mmol/L (3-11); BUN 31 mg/dL (7-18); Bilirubin, Total 0.6 mg/dL (0.2-1.0); CO2 27.6 mmol/L (21.0-32.0); Calcium 9.6 mg/dL (8.5-10.1); Chloride 104 mmol/L (98-107); Estimated GFR 41.06 (mL/min/1.73m2); Glucose 133 mg/dL (74-106); Magnesium 2.3 mg/dL (1.8-2.4); Potassium 4.0 mmol/L (3.5-5.1); Sodium 140 mmol/L (136-145); Total Protein 7.4 g/dL (6.4-8.2); Troponin I 11 ng/L (<or=51)
[2024-11-04 09:37] LABS: Glucose Negative (Negative)
[2024-11-04 09:37] LABS: Troponin I 9 ng/L (<or=51)
[2024-11-04] MEDS: Lisinopril 10 MG TAB 5 MG PO (10:18)
== END 2024-11-04 10:33 | disposition home or self-care (01) ==
PROVIDERS: Emergency Provider Emergency Medicine; PCP Family Medicine
DX: R51.9 Headache, unspecified (principal); R03.0 Elevated blood-pressure reading, without diagnosis of hypertension; R00.1 Bradycardia, unspecified; G47.33 Obstructive sleep apnea (adult) (pediatric)
CPT/HCPCS: 36415; 80053; 93005; 99284; 81003; 83735; 84484; 85025; 93010

== ENCOUNTER 2024-11-08 01:31 | Outpatient (CLI) | payer MEDICARE, OTHER, SELFPAY ==
[2024-11-08 13:53] LABS: Abs Immature Grans 0.02 10^3/uL (0.0-0.06); HCT 38.2 % (36.0-46.0); HGB 12.8 g/dL (11.2-15.7); Immature Grans % 0.3 %; MCH 32.2 pg (27.0-33.0); MCHC 33.5 % (32.0-36.0); MCV 96 fL (80-95); MPV 10.7 fL (8.0-11.0); Platelet Count 264 10^3/uL (130-400); RBC 3.97 10^6/uL (3.93-5.22); RDW 12.3 % (11.7-14.6); RDW-SD 44.1 fL; WBC 5.98 10^3/uL (4.4-10.8)
[2024-11-08 14:06] LABS: ALT 26 U/L (14-59); AST 14 U/L (15-37); Albumin 3.6 g/dL (3.4-5.0); Alkaline Phosphatase 98 U/L (46-116); Anion Gap 6.9 mmol/L (3-11); BUN 35 mg/dL (7-18); Bilirubin, Total 0.4 mg/dL (0.2-1.0); CO2 29.1 mmol/L (21.0-32.0); Calcium 9.5 mg/dL (8.5-10.1); Chloride 102 mmol/L (98-107); Estimated GFR 41.06 (mL/min/1.73m2); Glucose 186 mg/dL (74-106); Potassium 4.0 mmol/L (3.5-5.1); Sodium 138 mmol/L (136-145); Total Protein 7.0 g/dL (6.4-8.2)
[2024-11-09 11:36] LABS: Hep A Total Ab w Rflx IgM Negative (Negative)
== END 2024-11-08 01:32 | disposition home or self-care (01) ==
PROVIDERS: PCP Family Medicine; Visit Provider Nurse Practitioner Family
DX: Z20.5 Contact with and (suspected) exposure to viral hepatitis (principal); C7B.09 Secondary carcinoid tumors of other sites
CPT/HCPCS: 36415; 80053; 86709; 85025; 86316

== ENCOUNTER 2024-12-06 03:47 | Outpatient (CLI) | payer MEDICARE, OTHER, SELFPAY ==
[2024-12-06 13:21] LABS: Abs Immature Grans 0.01 10^3/uL (0.0-0.06); HCT 33.8 % (36.0-46.0); HGB 11.5 g/dL (11.2-15.7); Immature Grans % 0.2 %; MCH 32.6 pg (27.0-33.0); MCHC 34.0 % (32.0-36.0); MCV 96 fL (80-95); MPV 10.5 fL (8.0-11.0); Platelet Count 215 10^3/uL (130-400); RBC 3.53 10^6/uL (3.93-5.22); RDW 13.2 % (11.7-14.6); RDW-SD 46.4 fL; WBC 4.71 10^3/uL (4.4-10.8)
[2024-12-06 13:52] LABS: ALT 25 U/L (14-59); AST 18 U/L (15-37); Albumin 3.6 g/dL (3.4-5.0); Alkaline Phosphatase 89 U/L (46-116); Anion Gap 10.8 mmol/L (3-11); BUN 31 mg/dL (7-18); Bilirubin, Total 0.3 mg/dL (0.2-1.0); CO2 26.2 mmol/L (21.0-32.0); Calcium 8.7 mg/dL (8.5-10.1); Chloride 103 mmol/L (98-107); Estimated GFR 63.83 (mL/min/1.73m2); Glucose 97 mg/dL (74-106); Potassium 3.9 mmol/L (3.5-5.1); Sodium 140 mmol/L (136-145); Total Protein 6.7 g/dL (6.4-8.2)
[2024-12-06 19:31] LABS: Iron 83 ug/dL (50-170); Total Iron Binding Capacity 313 ug/dL (250-450); Transferrin Sat 27 % (15-50)
[2024-12-06 19:35] LABS: Ferritin 111 ng/mL (8-252); Folate 19.9 ng/mL (8.6-20.0); Vitamin B12 374 pg/mL (193-986)
== END 2024-12-06 03:48 | disposition home or self-care (01) ==
LOC: LBO 03:47
PROVIDERS: PCP Family Medicine; Visit Provider Nurse Practitioner Family
DX: C7B.09 Secondary carcinoid tumors of other sites (principal)
CPT/HCPCS: 36415; 80053; 82607; 82728; 82746; 83540; 83550; 85025; 86316

== ENCOUNTER 2025-01-03 04:17 | Outpatient (CLI) | payer MEDICARE, OTHER, SELFPAY ==
[2025-01-03 12:36] LABS: Abs Immature Grans 0.01 10^3/uL (0.0-0.06); HCT 36.0 % (36.0-46.0); HGB 12.0 g/dL (11.2-15.7); Immature Grans % 0.2 %; MCH 32.7 pg (27.0-33.0); MCHC 33.3 % (32.0-36.0); MCV 98 fL (80-95); MPV 10.1 fL (8.0-11.0); Platelet Count 248 10^3/uL (130-400); RBC 3.67 10^6/uL (3.93-5.22); RDW 14.3 % (11.7-14.6); RDW-SD 52.0 fL; WBC 4.09 10^3/uL (4.4-10.8)
[2025-01-03 13:43] LABS: ALT 25 U/L (14-59); AST 18 U/L (15-37); Albumin 3.8 g/dL (3.4-5.0); Alkaline Phosphatase 93 U/L (46-116); Anion Gap 4.4 mmol/L (3-11); BUN 23 mg/dL (7-18); Bilirubin, Total 0.5 mg/dL (0.2-1.0); CO2 29.6 mmol/L (21.0-32.0); Calcium 9.2 mg/dL (8.5-10.1); Chloride 102 mmol/L (98-107); Estimated GFR 56.25 (mL/min/1.73m2); Glucose 104 mg/dL (74-106); Potassium 4.6 mmol/L (3.5-5.1); Sodium 136 mmol/L (136-145); Total Protein 6.9 g/dL (6.4-8.2)
[2025-01-04 12:26] LABS: Lyme Ab w Rflx to Lyme Confirm Negative (Negative)
[2025-01-05 23:38] LABS: B. miyamotoi PCR Negative (Negative); Babesia divergens/MO-1 Negative (Negative); Ehrlichia muris eauclairensis Negative (Negative)
== END 2025-01-03 04:18 | disposition home or self-care (01) ==
LOC: LBO 04:17
PROVIDERS: PCP Family Medicine; Visit Provider Nurse Practitioner Family
DX: M19.90 Unspecified osteoarthritis, unspecified site (principal); C7B.09 Secondary carcinoid tumors of other sites
CPT/HCPCS: 36415; 80053; 87798; 85025; 86316; 86618

== ENCOUNTER 2025-02-28 09:44 | Outpatient (CLI) | payer MEDICARE, OTHER, SELFPAY ==
[2025-02-28 12:40] LABS: Abs Immature Grans 0.01 10^3/uL (0.0-0.06); HCT 36.6 % (36.0-46.0); HGB 12.2 g/dL (11.2-15.7); Immature Grans % 0.2 %; MCH 32.1 pg (27.0-33.0); MCHC 33.3 % (32.0-36.0); MCV 96 fL (80-95); MPV 10.2 fL (8.0-11.0); Platelet Count 269 10^3/uL (130-400); RBC 3.80 10^6/uL (3.93-5.22); RDW 13.0 % (11.7-14.6); RDW-SD 46.0 fL; WBC 4.70 10^3/uL (4.4-10.8)
[2025-02-28 13:10] LABS: ALT 22 U/L (14-59); AST 20 U/L (15-37); Albumin 3.5 g/dL (3.4-5.0); Alkaline Phosphatase 114 U/L (46-116); Anion Gap 10.1 mmol/L (3-11); BUN 24 mg/dL (7-18); Bilirubin, Total 0.3 mg/dL (0.2-1.0); CO2 24.9 mmol/L (21.0-32.0); Calcium 9.0 mg/dL (8.5-10.1); Chloride 104 mmol/L (98-107); Glucose 98 mg/dL (74-106); Potassium 4.2 mmol/L (3.5-5.1); Sodium 139 mmol/L (136-145); Total Protein 7.1 g/dL (6.4-8.2)
== END 2025-02-28 09:45 | disposition home or self-care (01) ==
LOC: LBO 09:44
PROVIDERS: PCP Family Medicine; Visit Provider Nurse Practitioner Family
DX: C7B.09 Secondary carcinoid tumors of other sites (principal)
CPT/HCPCS: 36415; 80053; 85025; 86316

== ENCOUNTER 2025-03-28 09:52 | Outpatient (CLI) | payer MEDICARE, OTHER, SELFPAY ==
[2025-03-28 11:50] LABS: Abs Immature Grans 0.01 10^3/uL (0.0-0.06); HCT 35.8 % (36.0-46.0); HGB 11.8 g/dL (11.2-15.7); Immature Grans % 0.2 %; MCH 31.9 pg (27.0-33.0); MCHC 33.0 % (32.0-36.0); MCV 97 fL (80-95); MPV 10.4 fL (8.0-11.0); Platelet Count 229 10^3/uL (130-400); RBC 3.70 10^6/uL (3.93-5.22); RDW 13.4 % (11.7-14.6); RDW-SD 47.4 fL; WBC 4.23 10^3/uL (4.4-10.8)
[2025-03-28 12:15] LABS: ALT 86 U/L (10-49); AST 57 U/L (<34); Albumin 4.2 g/dL (3.2-5.0); Alkaline Phosphatase 111 U/L (46-116); Anion Gap 8.1 mmol/L (3-11); BUN 27 mg/dL (9-23); Bilirubin, Total 0.30 mg/dL (0.2-1.2); CO2 22.9 mmol/L (20.0-31.0); Calcium 9.2 mg/dL (8.3-10.6); Chloride 111 mmol/L (98-107); Glucose 103 mg/dL (74-106); Potassium 3.8 mmol/L (3.5-5.1); Sodium 142 mmol/L (136-145); Total Protein 7.1 g/dL (5.7-8.2)
== END 2025-03-28 09:53 | disposition home or self-care (01) ==
PROVIDERS: PCP Family Medicine; Visit Provider Nurse Practitioner Family
DX: C7B.09 Secondary carcinoid tumors of other sites (principal)
CPT/HCPCS: 36415; 80053; 85025; 86316